=== PATIENT | male | born 1950 | race Caucasian/White ===

== ENCOUNTER 2018-06-25 11:22 | Outpatient (CLI) | payer OTHER, SELFPAY ==
[2018-06-25 12:39] LABS: COMMENT (LAB VIEW ONLY) 15.97 mg/dL; Microalb ug/mg Crea 80.8 ug/mg Cr
[2018-06-25 12:45] LABS: ALT 26 U/L (12-78); AST 19 U/L (15-37); Albumin 3.7 g/dL (3.4-5.0); Alkaline Phosphatase 90 U/L (46-116); Anion Gap 7.8 mmol/L (3-11); BUN 23 mg/dL (7-18); Bilirubin, Total 0.5 mg/dL (0.2-1.0); CO2 30.2 mmol/L (21.0-32.0); CREATININE 1.01 mg/dL (0.70-1.30); Calcium 9.3 mg/dL (8.5-10.1); Chloride 103 mmol/L (98-107); Cholesterol 122 mg/dL (50-200); Glucose 115 mg/dL (70-100); HDL Cholesterol 27 mg/dL (40-60); LDL CHOLESTEROL 60 mg/dL (<100); Sodium 141 mmol/L (136-145); Total Protein 7.2 g/dL (6.4-8.2); Triglyceride 167 mg/dL (30-150)
== END 2018-06-25 11:42 ==
PROVIDERS: PCP Nurse Practitioner; Visit Provider Nurse Practitioner
DX: I10 Essential (primary) hypertension (principal); E11.9 Type 2 diabetes mellitus without complications; E78.1 Pure hyperglyceridemia
CPT/HCPCS: 36415; 80053; 80061; 83721; 82043; 82570

== ENCOUNTER 2018-12-15 01:28 | Outpatient (CLI) | payer OTHER, SELFPAY ==
--- NOTE | 2018-12-15 07:00 | DI.US_ITS ---
SYMPTOM/DIAGNOSIS: SCREENING FOR AAA Z13.6, SMOKER F17.200 ABDOMINAL ULTRASOUND, LIMITED : 12/15 Limited ultrasound was performed for abdominal aortic aneurysm screening. There is an abdominal aortic aneurysm which originates just below the level of the left renal artery and just above the level of the right renal artery. This measures up to about 8.6 cm in maximal diameter in AP projection and 9.0 cm in diameter on transverse dimension. There is a 28 mm right common iliac artery aneurysm and a 25 mm left common iliac artery aneurysm. No evidence of leaking aneurysm or pseudo aneurysm. CONCLUSION: 9 cm distal abdominal aortic aneurysm as described above, right and left common iliac artery aneurysms 28 mm and 25 mm respectively.
== END 2018-12-15 01:48 ==
PROVIDERS: PCP Nurse Practitioner; Visit Provider Nurse Practitioner
DX: F17.200 Nicotine dependence, unspecified, uncomplicated (principal); Z13.6 Encounter for screening for cardiovascular disorders; I71.4 Abdominal aortic aneurysm, without rupture; I72.3 Aneurysm of iliac artery
CPT/HCPCS: 76706

== ENCOUNTER 2019-05-03 09:41 | Outpatient (CLI) | payer OTHER, SELFPAY ==
[2019-05-03 12:07] LABS: ALT 28 U/L (16-63); AST 21 U/L (15-37); Albumin 4.1 g/dL (3.4-5.0); Alkaline Phosphatase 85 U/L (46-116); Anion Gap 11.1 mmol/L (3-11); BUN 20 mg/dL (7-18); Bilirubin, Total 0.4 mg/dL (0.2-1.0); CO2 27.9 mmol/L (21.0-32.0); CREATININE 1.04 mg/dL (0.70-1.30); Calcium 9.3 mg/dL (8.5-10.1); Calculated LDL 74 mg/dL; Chloride 102 mmol/L (98-107); Cholesterol 140 mg/dL (<200); Glucose 120 mg/dL (74-106); HDL Cholesterol 26 mg/dL (40-60); Potassium 4.2 mmol/L (3.5-5.1); Sodium 141 mmol/L (136-145); Total Protein 7.5 g/dL (6.4-8.2); Triglyceride 203 mg/dL (<150)
== END 2019-05-03 10:01 ==
PROVIDERS: PCP Nurse Practitioner; Visit Provider Nurse Practitioner
DX: I10 Essential (primary) hypertension (principal); E78.5 Hyperlipidemia, unspecified; Z98.890 Other specified postprocedural states
CPT/HCPCS: 36415; 80053; 80061

== ENCOUNTER 2020-05-26 03:39 | Outpatient (CLI) | payer OTHER, SELFPAY ==
[2020-05-26 09:25] LABS: Hemoglobin A1C 5.6 % (<5.7)
[2020-05-26 09:56] LABS: ALT 28 U/L (16-63); AST 33 U/L (15-37); Albumin 3.7 g/dL (3.4-5.0); Alkaline Phosphatase 119 U/L (46-116); Anion Gap 7.4 mmol/L (3-11); BUN 24 mg/dL (7-18); Bilirubin, Total 0.6 mg/dL (0.2-1.0); CO2 27.6 mmol/L (21.0-32.0); CREATININE 1.25 mg/dL (0.70-1.30); Calcium 8.4 mg/dL (8.5-10.1); Calculated LDL 38 mg/dL (<100); Chloride 104 mmol/L (98-107); Cholesterol 87 mg/dL (<200); Estimated GFR 57.61 (mL/min/1.73m2); Glucose 115 mg/dL (74-106); HDL Cholesterol 12 mg/dL (40-60); Potassium 4.4 mmol/L (3.5-5.1); Sodium 139 mmol/L (136-145); Total Protein 6.9 g/dL (6.4-8.2); Triglyceride 185 mg/dL (<150)
== END 2020-05-26 03:59 ==
PROVIDERS: PCP Nurse Practitioner; Visit Provider Nurse Practitioner
DX: E78.5 Hyperlipidemia, unspecified (principal); I10 Essential (primary) hypertension; R73.03 Prediabetes
CPT/HCPCS: 36415; 80053; 80061; 83036

== ENCOUNTER 2020-10-09 02:31 | Outpatient (CLI) | payer OTHER, SELFPAY ==
[2020-10-09 12:18] LABS: HCT 49.7 % (40.0-50.0); HGB 15.4 g/dL (13.5-17.5); MCH 26.7 pg (27.0-33.0); MCV 86.1 fL (80-95); Nucleated RBC 4 %; RBC 5.77 10^6/uL (4.36-5.78); RDW 22.7 % (11.8-14.1)
[2020-10-09 12:28] LABS: WBC 64.57 10^3/uL (4.4-10.8)
[2020-10-09 12:47] LABS: ALT 38 U/L (16-63); AST 44 U/L (15-37); Albumin 3.4 g/dL (3.4-5.0); Alkaline Phosphatase 275 U/L (46-116); Anion Gap 12.1 mmol/L (3-11); BUN 21 mg/dL (7-18); CO2 25.9 mmol/L (21.0-32.0); CREATININE 1.1 mg/dL (0.70-1.30); Calcium 8.7 mg/dL (8.5-10.1); Chloride 105 mmol/L (98-107); Glucose 107 mg/dL (74-106); Potassium 3.7 mmol/L (3.5-5.1); Sodium 143 mmol/L (136-145); Total Protein 7.1 g/dL (6.4-8.2)
[2020-10-09 14:14] LABS: Absolute Lymphocyte Count 2.58 10^3/uL (1.2-3.4); Absolute Monocyte Count 4.52 10^3/uL (0.1-0.8); Absolute Neutrophil Count 37.45 10^3/uL (1.2-6.7); Bands % 8
[2020-10-09 14:15] LABS: Absolute Basophil Count 0.65 10^3/uL (0.0-0.2); Absolute Eosinophil Count 3.23 10^3/uL (0.0-0.7); Blastocytes % 1; Diff Comment Manual Differential; Metamyelocytes % 15; Myelocytes % 8; Promyelocytes % 1
[2020-10-09 14:16] LABS: Anisocytosis 2+; Platelet Count 196 10^3/uL (130-400)
[2020-10-09 16:01] LABS: Other Cells % 1
[2020-10-23 16:34] LABS: Specimen Type Peripheral blood
== END 2020-10-09 02:32 | disposition home or self-care (01) ==
LOC: LBO 02:31
PROVIDERS: PCP Nurse Practitioner; Visit Provider Internal Medicine Hematology & Oncology
DX: D72.9 Disorder of white blood cells, unspecified (principal)
CPT/HCPCS: 36415; 80053; 81206; 85025

== ENCOUNTER 2020-10-18 01:43 | Outpatient (CLI) | payer OTHER, SELFPAY ==
--- NOTE | 2020-10-18 | DI.CT_ITS ---
Exam(s) CT CHEST/ABD/PEL W EXAM: CT CHEST/ABD/PEL W CLINICAL HISTORY: NEUTROPHILIA,D72.9,STAGING EXAM. TECHNIQUE: Imaging Protocol: Axial computed tomography images with coronal and sagittal reformatted images were created and reviewed CONTRAST MATERIAL: Intravenous: Omnipaque 350 Contrast volume:100 ml Oral: None COMPARISON: US US AAA screening from 12/15/2018 FINDINGS: CHEST: LUNGS: Mild increased interstitial markings both lung bases. No confluent pulmonary infiltrates nor pleural effusions. No ominous pulmonary nodules. No significant focal findings evident in the trach ea and mainstem bronchi.. MEDIASTINUM: There is no hilar nor mediastinal adenopathy. Visualized thyroid unremarkable. CARDIAC: Heart size is normal. There is no pericardial effusion. Coronary artery calcification in t he LAD is noted.Caliber of the thoracic aorta is within normal limits. OSSEOUS: No significant osseous lesions.. ABDOMEN: LIVER: Liver is enlarged. There are no obvious focal hepatic lesions. GALLBLADDER/BILIARY: No obvious gallbladder pathology. CBD is not dilated. PANCREAS: No evidence of pancreatic mass nor dilatation of the pancreatic duct. SPLEEN: The spleen is grossly enlarged. Measures 22.5 cm AP by 13.5 cm wide by 27 cm craniocaudal. There is a subcapsular area of hypodensity in the spleen which may represent infarct or sequela of valdez bcapsular hemorrhage. There is also small amount of perisplenic ascites. ADRENALS: Right adrenal gland unremarkable. Slight thickening of the left adrenal gland noted. KIDNEYS: There is an exophytic cyst off the lateral cortex of the left kidney measuring 3 x 2.5 cm. Perinephric streaking is seen bilaterally. There is a cyst in the right kidney measuring 1.5 x 1.5 c entimetres in lower pole. No solid renal masses evident. ABDOMINAL AORTA: There has been aortic surgery. For aneurysm. LYMPH NODES: There is no retroperitoneal nor paraaortic adenopathy. ABDOMINAL WALL: No evidence of significant anterior abdominal wall hernia. GI: There is no evidence of bowel obstruction. PELVIS: LYMPH NODES: There is no intrapelvic nor inguinal adenopathy. GI: No evidence of appendicitis.No evidence of sigmoid diverticulitis. URINARY BLADDER: No calculi nor masses evident REPRODUCTIVE: Prostate not enlarged. OSSEOUS: No significant osseous lesions. Bilateral pars defects at L5 noted. Mild anterolisthesis L5 upon S1 approximately 2 millimeters. IMPRESSION: 1. Hepatosplenomegaly. Spleen is very large. Measurements as above. In addition, there is subcapsu lar fluid collection in the spleen as well as a small amount of perisplenic ascites. There are multi ple collaterals with probable portal venous hypertension here. 2. Evidence of prior abdominal aortic aneurysm surgery. 3. Benign renal cysts bilaterally. 4. No lytic osseous lesions identified RADIATION DOSE DELIVERED: 1,767.16mGy.cm Total DLP DATA REPOSITORY: All CT scans at this facility are submitted to the National Radiology Data Registry (NRDR) Dose Index Registry (DIR) with the [employer] (ACR). RADIATION OPTIMIZATION: All CT scans at this facility use at least one of these dose optimization te chniques: automated exposure control; mA and/or kV adjustment per patient size (includes targeted exa ms where dose is matched to clinical indication); or iterative reconstruction.
[2020-10-18] MEDS: Normal Saline - Diluent 50 ML VIAL IV (09:33)
[2020-10-18] MEDS: Omnipaque 350 MG/ML 100 ML BTL IV (09:33)
[2020-10-18] MEDS: Normal Saline Flush 10 ML SYR IVP (09:34)
== END 2020-10-18 02:03 ==
PROVIDERS: PCP Nurse Practitioner; Visit Provider Internal Medicine Hematology & Oncology
DX: D72.89 Other specified disorders of white blood cells (principal); R16.2 Hepatomegaly with splenomegaly, not elsewhere classified; N28.1 Cyst of kidney, acquired; R18.8 Other ascites
CPT/HCPCS: 74177; 71260; J3490

== ENCOUNTER 2020-11-30 03:54 | Outpatient (CLI) | payer OTHER, SELFPAY ==
[2020-11-30 10:08] LABS: Abs Immature Grans 13.97 10^3/uL (0.0-0.06); HCT 42.9 % (40.0-50.0); HGB 13.2 g/dL (13.5-17.5); MCH 26.1 pg (27.0-33.0); MCHC 30.8 % (32.0-36.0); MPV 11.5 fL (8.0-11.0); Nucleated RBC 1 %; Platelet Count 353 10^3/uL (130-400); RBC 5.05 10^6/uL (4.36-5.78); RDW 23.6 % (11.8-14.1); RDW-SD 69.8 fL
[2020-11-30 10:17] LABS: ALT 30 U/L (16-63); AST 41 U/L (15-37); Albumin 2.6 g/dL (3.4-5.0); Alkaline Phosphatase 432 U/L (46-116); Anion Gap 10.8 mmol/L (3-11); BUN 29 mg/dL (7-18); Bilirubin, Total 0.8 mg/dL (0.2-1.0); CO2 25.2 mmol/L (21.0-32.0); CREATININE 1.7 mg/dL (0.70-1.30); Calcium 8.4 mg/dL (8.5-10.1); Chloride 107 mmol/L (98-107); Estimated GFR 40.28 (mL/min/1.73m2); Glucose 89 mg/dL (74-106); Potassium 4.1 mmol/L (3.5-5.1); Sodium 143 mmol/L (136-145); Total Protein 5.8 g/dL (6.4-8.2)
[2020-11-30 10:31] LABS: Absolute Lymphocyte Count 2.06 10^3/uL (1.2-3.4); Absolute Neutrophil Count 49.49 10^3/uL (1.2-6.7); Bands % 11
[2020-11-30 10:32] LABS: Absolute Eosinophil Count 4.12 10^3/uL (0.0-0.7); Absolute Monocyte Count 2.75 10^3/uL (0.1-0.8)
[2020-11-30 10:33] LABS: WBC 68.73 10^3/uL (4.4-10.8)
[2020-11-30 10:34] LABS: Diff Comment Manual Differential; Metamyelocytes % 9; Myelocytes % 4; Other Cells % 1; Promyelocytes % 1
[2020-11-30 10:35] LABS: Anisocytosis 2+; Polychromasia Present
[2020-12-06 12:32] LABS: Indication for Study CML
[2020-12-06 12:33] LABS: Specimen Type Peripheral blood
[2020-12-06 12:34] LABS: BCR-ABL1 Interpretation See Comments; BCR-ABL1 p210 FusionTranscript See Comments; Limitations and Disclaimers See Comments
== END 2020-11-30 03:55 | disposition home or self-care (01) ==
LOC: LBO 03:54
PROVIDERS: PCP Nurse Practitioner; Visit Provider Internal Medicine Hematology & Oncology
DX: D47.1 Chronic myeloproliferative disease (principal); D72.9 Disorder of white blood cells, unspecified
CPT/HCPCS: 36415; 80053; 81206; 84550; 85025

== ENCOUNTER 2020-12-01 08:19 | Outpatient (CLI) | payer OTHER, SELFPAY ==
--- OUTSIDE RECORDS SUMMARY | 2020-12-01 08:23 | XMS_ITS ---
:1950 Author Care Team Providers Name Role Phone DR. MATA BATES Primary Care Provider [phone] DR. MATA BATES Referring Provider [phone] Allergies Code Code Name Reaction Severity Status Onset System 5487 RxNorm Hydrochlorothiazide Angioedema ? Active ? 66602 RxNorm Lisinopril Angioedema ? Active ? Medications Name Status Start Date Stop Date ? ? acetaminophen 500 mg tablet Active ? Not available Take 2 tablets every 6 hours by oral route as needed. Adult Aspirin Regimen 81 mg tablet,delayed release Active ? Not available Take 1 tablet every day by oral route. amlodipine 5 mg tablet Active ? Not avail able atenolol 100 mg tablet Active ? Not avail able bumetanide 1 mg tablet Active ? Not avail able capsaicin 0.1 % topical cream Completed ? cephalexin 500 mg capsule Completed ? 2020 TAKE ONE CAPSULE BY MOUTH FOUR TIMES A DAY FOR 10 DAYS clindamycin HCl 300 mg capsule Active ? N ot available TAKE 1 CAPSULE BY MOUTH EVERY 6 HOURS WITH MEALS furosemide 20 mg tablet Active ? Not avai lable indomethacin 25 mg capsule Active ? Not a vailable Take 2 capsules 3 times a day by oral route. irbesartan 300 mg tablet Active ? Not khoa ilable multivitamin Active ? Not available sildenafil 50 mg tablet Active ? Not avai lable TAKE 1 TABLET (50 MG) BY ORAL ROUTE ONC E DAILY NEEDED APPROXIMATELY 1 HOUR BEFORE SEXUAL ACTIVITY simvastatin 20 mg tablet Completed ? 021 simvastatin 40 mg tablet Active ? Not khoa ilable triamcinolone acetonide 0.025 % topical cream Completed ? 09/05/2020 APPLY A THIN LAYER TO THE AFFECTED AREA(S) BY TOPICAL ROUTE 2 T IMES PER DAY Problems Name Status Onset Date Source ? Hyperlipidemia Active 07/24/2020 ? Erectile Dysfunction Active 07/24/2020 ? Tobacco User Active 07/24/2020 ? Obstructive Sleep Apnea Syndrome Active 07/24/2020 ? Cerebellar Ataxia Active 07/24/2020 ? Peripheral Nerve Disease Active 07/24/2020 ? Hypertensive Disorder Active 07/24/2020 ? Abdominal Aortic Aneurysm Active 07/24/2020 ? Hallux Valgus Active 07/24/2020 ? Bunion Active 07/24/2020 ? Ulcer of Toe Active 08/29/2020 ? 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 Acute Osteomyelitis of Foot Active 08/29/2020 ? Procedures Date Name Performed by ? 06/09/2016 Colonoscopy Information not avai lable 06/09/2014 Knee Surgery Information not avai lable ? Repair of Aneurysm of Abdominal Aorta In formation not available Notes: 01/201908/29/2020 XR, Foot, 3 or More View [facility] [address] [place] [id number] (Work Place) 08/29/2020 XR, Foot, 3 or More View [facility] [address] [place] [id number] (Work Place) Results Lab Results Date Name Specimen Result Interpretation Description Value Range Status Address ? 2020 SARS CoV 2 RNA ? Upper nasopharyngeal ? Final [facility] (COVID-19), [facility] QL, hr representative-PCR, Source (Lab ): Respiratory [facility] ? ? Normal Sars Cov-2 not detected not Final [facility] RNA detect Hospital (Covid-19) ed (Lab): [address] [place] [address] 08/29/2020 Erythrocyte WB Normal Esr 8.00 mm/HR 0.00-1 Aure shalonda [facility] Sedimentation 5.00 Hos pital Rate by mm/HR (Lab): [address] [place] [address] 08/29/2020 CBC W/ Auto WB CRITIC Wbc 61.2 10^3/mm^3 4.8-10 Final [place] Diff [place] .8 Hospital HIGH 10^3/m (Lab): 90 m^3 [facility] ? ? WB Normal Rbc 5.40 10^6/mm^3 4.20-5 Final Co ttage .90 Hospital 10^6/m (Lab): 90 m^3 [facility] ? ? WB Normal Hgb 14.5 g/dL 13.5-1 Final [facility] 7.5 Hospital g/dL (Lab): [address] [place] [address] ? ? WB Normal Hct 46 % 40-50 Final [facility] % Hospital (Lab): [address] [place] [address] ? ? WB Normal Mcv 84.8 fL 80.0-9 Final [facility] 7.0 fL Hospital (Lab): [address] [place] [address] ? ? WB Low Mch 26.9 pg 27.5-3 Final [facility] 2.1 pg Hospital (Lab): [address] [place] [address] ? ? WB Low Mchc 32 g/dL 33-36 Final [facility] g/dL Hospital (Lab): [address] [place] [address] ? ? WB High Rdw 23.3 % 11.6-1 Final [facility] 4.8 % Hospital (Lab): [address] [place] [address] ? ? WB Normal Platelets 239 10^3/mm^3 150-40 Final [facility] 0 Hospital 10^3/m (Lab): 90 m^3 [facility] 08/29/2020 CMP, Serum or P Normal Na 140 mEq/L 136-14 Fin al [facility] Plasma 5 Hospital mEq/L (Lab): [address] [place] [address] ? ? P Normal K 4.4 mEq/L 3.5-5. Final [place] 1 Hospital mEq/L (Lab): [address] [place] [address] ? ? P Normal Cl 102 mEq/L 98-107 Final [facility] mEq/L Hospital (Lab): [address] [place] [address] ? ? P Normal Co2 25 mEq/L 21-31 Final [facility] mEq/L Hospital (Lab): [address] [place] [address] ? ? P ? Agap 18.2 ? Final [place] calculation Hospi tobi (Lab): [address] [place] [address] ? ? P High Glu 146 mg/dL 70-100 Final [facility] mg/dL Hospital (Lab): [address] [place] [address] ? ? P High Bun 23 mg/dL 7-18 Final [facility] mg/dL Hospital (Lab): [address] [place] [address] ? ? P Normal Creat 1.25 mg/dL 0.70-1 Final [facility] .30 Hospital mg/dL (Lab): [address] [place] [address] ? ? P ? Bn/cr 18.3 ratio ? Final [facility] Hospital (Lab): [address] [place] [address] ? ? P Low Ca 8.3 mg/dL 8.5-10 Final [facility] .1 Hospital mg/dL (Lab): [address] [place] [address] ? ? P High Alkp 192 U/L 38-126 Final [facility] U/L Hospital (Lab): [address] [place] [address] ? ? P Normal Alt 36 U/L 16-63 Final [facility] U/L Hospital (Lab): [address] [place] [address] ? ? P High Ast 43 U/L 15-37 Final [facility] U/L Hospital (Lab): [address] [place] [address] ? ? P Normal Tbil 0.8 mg/dL <=1.2 Final [facility] mg/dL Hospital (Lab): [address] [place] [address] ? ? P Normal Tp 6.7 g/dL 6.4-8. Final [facility] 2 g/dL Hospital (Lab): [address] [place] [address] ? ? P Normal Alb 3.6 g/dL 3.4-5. Final [facility] 0 g/dL Hospital (Lab): [address] [place] [address] ? ? P ? Glob 3.08 mg/dL ? Final [facility] (Lab): [address] [place] [address] ? ? P ? A/g 1.2 calc ? Final [facility] (Lab): [address] [place] [address] ? ? P ? Egfraa 69.83 ? Final [facility] (Lab): [address] [place] [address] ? ? P ? Egfrnaa 57.61 ? Final [facility] (Lab): [address] [place] [address] 08/29/2020 Pathology ? Source see separate ? Arnulfo Marshall Review, Smear report Hos pital (Lab): [address] [place] [address] ? ? ? Dx1 ssr ? Final [facility] (Lab): [address] [place] [address] ? ? ? Dx2 ssr ? Final [facility] (Lab): [address] [place] [address] ? ? ? Dx3 ssr ? Final [facility] (Lab): [address] [facility] ? ? ? Disc ssr ? Final [facility] (Lab): 90 [facility] ? ? ? Add ssr ? Final [facility] (Lab): 90 [facility] ? ? ? Info ssr ? Final [facility] (Lab): [address] [facility] Past Encounters 11/28/2020 Hammer Toe; Ulcer of Toe; Hallux Valgus Tk Edwards, DPM: [address] [place] [address], Ph. 09/28/2020 Amputated Toe of Right Foot; Hallux Valg us Tk Edwards, DPM: [address] [place] [address], Ph. 09/21/2020 Amputated Toe of Right Foot Tk Edwards DPM: [address] [place] [address], Ph. 09/14/2020 Acute Osteomyelitis of Foot Tk Edwards, DPM: [address] [place] [address], Ph. 2020 Acute Osteomyelitis of Foot; Hammer Toe; Ulcer of Toe Tk Edwards, DPM: [address] [place] [address], Ph. 08/29/2020 Acute Osteomyelitis of Foot; Ulcer of To e; Hammer Toe Tk Edwards, DPM: [address] [place] [address], Ph. 08/07/2020 Ulcer of Toe; Acquired Right Hallux Valg us; Hammer Toe Tk Edwards, DPM: [address] [place] [address], Ph. Social History None recorded. Vaccine List Vaccine Type COVID-19, mRNA, LNP-S, PF, 100 mcg/0.5 m L dose 08/14/2020 SARS-COV-2 (COVID-19) vaccine, UNSPECIFI ED 09/14/2020 Plan of Care Reminders Provider Appointments None ? ? recorded. Lab None ? ? recorded. Referral None ? ? recorded. Procedures None ? ? recorded. Surgeries None ? ? recorded. Imaging None ? ? recorded. Vitals 11/28/2020 08:30AM Post Op Height Weight BMI Blood Pressure 182.88 cm 111.13 kg 33.2 kg/m2 09/28/2020 08:45AM Post Op Height 182.88 cm 09/21/2020 09:45AM Post Op Height Weight BMI Blood Pressure 182.88 cm 111.13 kg 33.2 kg/m2 126/68 mm[Hg] 09/14/2020 10:00AM Post Op Height 182.88 cm 2020 01:30PM FOLLOW UP Height Weight BMI Blood Pressure 182.88 cm 111.13 kg 33.2 kg/m2 08/29/2020 02:00PM FOLLOW UP Height Weight BMI Blood Pressure 182.88 cm 111.13 kg 33.2 kg/m2 08/07/2020 02:30PM NEW PATIENT Height Weight BMI Blood Pressure 182.88 cm 111.13 kg 33.2 kg/m2 132/70 mm[Hg]
--- OUTSIDE RECORDS SUMMARY | 2020-12-01 08:23 | XMS_ITS | Encounter Summary ---
:1950 Author Care Team Providers Name Role Phone Dr. Gisele Perkins Primary Care Provider [phone] Dr. Gisele Perkins Referring Provider [phone] Reason for Visit 3rd post op amputation right great toe Assessment and Plan 1. Hammer toe 2. Ulcer of toe Plan: PolyMem bandages were ap plied to the second toe of the left foot and recommendations were given for daily was tete and application of PolyMem bandages which she can obtain online. I have kiersten carson recommended he return to his postoperative shoe use on his left foot and follow-up in clinic in 1 week. 3. Hallux valgus Discussion Note: None recorded.Patient educational handouts: No information available. Plan of Care Reminders Provider Appointments Ulcer Care 12/05/2020 Raj Edwards, 15 9:45AM DPM Lab None ? ? recorded. Referral None ? ? recorded. Procedures None ? ? recorded. Surgeries None ? ? recorded. Imaging None ? ? recorded. Medications Name Start Date ? ? acetaminophen 500 mg tablet ? Take 2 tablets every 6 hours by oral route as needed. Adult Aspirin Regimen 81 mg tablet,delayed release ? Take 1 tablet every day by oral route. amlodipine 5 mg tablet ? Take 1 tablet every day by oral route. atenolol 100 mg tablet ? Take 2 tablets every day by oral route. bumetanide 1 mg tablet ? Take 1 tablet every day by oral route. clindamycin HCl 300 mg capsule ? TAKE 1 CAPSULE BY MOUTH EVERY 6 HOURS WITH MEALS furosemide 20 mg tablet ? indomethacin 25 mg capsule ? Take 2 capsules 3 times a day by oral route. irbesartan 300 mg tablet ? Take 1 tablet every day by oral route. multivitamin ? sildenafil 50 mg tablet ? TAKE 1 TABLET (50 MG) BY ORAL ROUTE ONC E DAILY NEEDED APPROXIMATELY 1 HOUR BEFORE SEXUAL ACTIVITY simvastatin 40 mg tablet ? Take 1 tablet every day by oral route. Medications Administered None recorded. Vitals Height Weight BMI 6 ft 245 lbs 33.2 kg/m2 Results Lab Results None recorded. Allergies Code Code System Name Reaction Severity Onset 5487 RxNorm Hydrochlorothiazide Angioedema ? ? 23489 RxNorm Lisinopril Angioedema ? ? Problems Name Status Onset Date Source ? [...] Abdominal Aorta In formation not available Notes: 01/2019 Vaccine List Vaccine Type COVID-19, mRNA, LNP-S, PF, 100 mcg/0.5 m L dose 08/14/2020 SARS-COV-2 (COVID-19) vaccine, UNSPECIFI ED 09/14/2020 Social History Have you travelled outside of [facility] in the past 14 days? Have you received the covid vaccine Y No valerie: Moderna Covid #1 this year? (If so, document vaccination in Vaccine Module in [place]) Have you experienced any of the N following symptoms in the past 48 hours? Fever/Chills, Cough, Shortness of breath or difficulty breathing, fatigue, muscle or body aches, headache, new loss of taste or smell, sore throat, congestion or runny nose, nausea or vomiting and/or diarrhea Are you able to care for yourself? Y Have you had any vaccines in the last Y Notes: scheduled for Moderna month or do you have any vaccines Covid #2 on 09/10/20, Dr Edwards's scheduled? office contacted Illicit Drugs: Begin date: Notes: non e Are you currently waiting on results N of a COVID-19 test? What is your code status? 0 Within the past 14 days, have you N been in close physical contact (6 feet or closer for a cumulative total of 15 minutes) with anyone that is known to have laboratory-confirmed COVID-19? OR Anyone who has any symptoms consistent with COVID-19? Tobacco - Do you use chewing N Notes: no E cigarette, vape use tobacco? Are you isolating or quarantining N because you may have been exposed to a person with COVID-19 or are worried that you may be sick with COVID-19? What was the date of your most recent 09/28/2020 tobacco screening? Do you have an advanced directive? Y Not es: on file at [place], [place] Directive website Tobacco - Do you smoke? N Notes: Former quit 1.5 yrs, 1 ppd x 40 yrs Alcohol - Daily intake: Notes: 12-14 beers a week Tobacco - Are you around people that Y smoke? Functional Status Unknown. Past Encounters 11/28/2020 Hammer Toe; Ulcer of Toe; Hallux Valgus Tk Edwards, DPM: [address] [place] [address], Ph. History of Present Illness Note: Keanu was seen today for an acute visit for concern for left foot and a new ulceration on the second digit. The right foot has healed completely from his surgery with no complications being noted. He has no specific history of injury or trauma to his left foot. Review of Systems ? [Global] Comprehensive ROS Reported By: Patient Constitutional: Constitutional: no fever, no night sweats, no significant weight loss, no exercise int olerance, no fatigue Integumentary: Skin: no abnormal mole, no j aundice, no rashes, no laceration; Chronic ulcer right second t oe Musculoskeletal: Musculoskeletal: ; Longstand ing hallux valgus and hammertoe deformities right and left f oot Neurologic: Neurologic: no loss of consc iousness, no weakness, no numbness, no seizures, no di zziness, no headaches, no tremor, no muscle weakness Hematologic/Lymphatic: Hematologic/Lymphatic no swo llen glands, no bruising, no excessive bleeding Allergic/Immunologic: Allergy/Immunologic: no seas onal allergies Physical Exam ? Notes: Constitutional: Well-groomed , well developed, appears stated age, well nourished, no acute distress , alert and oriented to time, place and person, weight-overweight

Psy chiatric: Mental status-mood and affect normal, behavior normal,cognition an d thought content normal, fund of knowledge is intact, attention span and a bility to concentrate is normal, able to articulate well with normal speech and language

Respiratory: Quiet and easy respiratory effort, brown st-symmetrical expansion, no respiratory distress, no adventitious sounds, no s hortness of breath, respiration rate of numeral 12

Vascular:
Dors mandy pedis pulse-absent due to edema
Posterior tibial pulse-1/4
Venous filling time at the digit levels-1 second
Digita l hair-absent
Skin texture and turgor-normal
Pedal tempe rature-warm
Extremity varicosities-none noted
Edema-+1 pedal homero a
Ischemia-none noted

Lymphatic: no lymphadenopathy of the popli teal nodes

Dermatologic: Grade 3 ulceration medial surface left second d igit proximal interphalangeal joint without evidence of erythema, draina ge, bleeding or penetration to bone. This lesion measures approximately 5 mm in diameter.

Neurologic: Alert and oriented times 3, concentrating abili ty not decreased, symmetrical bulk, strength and tone in the lower extremitie s, coordination is normal.
Sensory examination-distal sensory n europathy in the L4-S1 dermatomes bilaterally
Motor examina tion-intact without deficit
Coordination and tremors-no intentional or re sting tremors are noted, no adventitious movement noted
Muscle fasciculatio ns-no fasciculations noted in the lower extremity muscles
Atrophy-no atroph y noted in the intrinsic muscles of the feet, lower legs or thighs

Musculoskeletal: Able to rise from a chair and get up onto the orthopaedic examination table, hallux valgus deformities with hammertoe deformities 2 thro ugh 5 on the left foot. No acute presentation noted with joint pain, muscl e inflammation or tenosynovitis.

Gait: Normal gait and station, nor mal posture, flatfoot type gait

Assessment: Grade 3 ulceration second di git left foot without evidence of infection

Plan: Daily washing, bandaging with PolyMem bandages and postoperative shoe use
<b r>This clinic note/operative note was created using [employer] voi ce recognition software. The note was reviewed by myself for primary content. There may be multiple small syntactical discrepancies and errors due to the voice recognition limitations of the software-Dr. Edwards.
--- OUTSIDE RECORDS SUMMARY | 2020-12-01 08:23 | XMS_ITS | Encounter Summary ---
:1950 Author Care Team Providers Name Role Phone Dr. Gisele Perkins Primary Care Provider [phone] Dr. Gisele Perkins Referring Provider [phone] Reason for Visit suture removal Assessment and Plan 1. Amputated toe of right foot 2. Hallux valgus Discussion Note: None recorded.Patient educational [...] route. Medications Administered None recorded. Vitals Height 6 ft Results Lab Results None recorded. Allergies Code Code System Name Reaction Severity Onset 5753 RxNorm Hydrochlorothiazide Angioedema ? ? 44817 RxNorm Lisinopril Angioedema ? ? Problems Name [...] 01/201908/29/2020 XR, Foot, 3 [facility] [address] [place] [address] (Work Place) 08/29/2020 [facility], [facility] Rad[facility] [address] [place] [address] (Work Place) Vaccine List Vaccine Type COVID-19, mRNA, LNP-S, PF, 100 mcg/0.5 m L dose 08/14/2020 SARS-COV-2 (COVID-19) vaccine, UNSPECIFI ED 09/14/2020 Social History Have you received the covid vaccine Y No valerie: Moderna Covid #1 this year? (If so, document vaccination in Vaccine Module in [place]) Are you able to care for yourself? Y Are you currently waiting on results N of a COVID-19 test? What is your code status? 0 Tobacco - Do you use chewing N [...] directive? Y Not es: on file at [place], [place] Directive website Tobacco - Do you smoke? N Notes: Former quit 1.5 yrs, 1 ppd x 40 yrs Tobacco - Are you around people that Y smoke? Have you travelled outside of [facility] in the past 14 days? Have you experienced any of the N following symptoms in the past 48 hours? Fever/Chills, Cough, Shortness of breath or difficulty breathing, fatigue, muscle or body aches, headache, new loss of taste or smell, sore throat, congestion or runny nose, nausea or vomiting and/or diarrhea Have you had any vaccines in the last Y Notes: scheduled for a month or do you have any vaccines Covid #2 on 09/10/20, Dr Edwards's scheduled? office contacted Illicit Drugs: Begin date: Notes: non e Within the past 14 days, have you N been in close physical contact (6 feet or closer for a cumulative total of 15 minutes) with anyone that is known to have laboratory-confirmed COVID-19? OR Anyone who has any symptoms consistent with COVID-19? Alcohol - Daily intake: Notes: 12-14 beers a week Functional Status Unknown. Past Encounters 09/28/2020 Amputated Toe of Right Foot; Hallux Valg us Tk Edwards DPM: [address] [place] [phone], Ph. 09/21/2020 Amputated Toe of Right Foot Tk Edwards DPM: [address] [place] [phone], Ph. 09/14/2020 Acute Osteomyelitis of Foot Tk Edwards DPM: [address] [place] [phone], Ph. 2020 Acute Osteomyelitis of Foot; Hammer Toe; Ulcer of Toe Tk Edwards DPM: [address] [place] [phone], Ph. 08/29/2020 Acute Osteomyelitis of Foot; Ulcer of To e; Hammer Toe Tk Edwards DPM: [address] [place] [phone], Ph. History of Present Illness Note: Keanu is seen for postoperative visit for right second digit amputation. He has no complaint of pain or discomfort in the right foot. He has a visit next week scheduled at the [facility] [place] [facility] [place] for a medical work-up. Review of Systems ? [Global] Comprehensive ROS [...] seas onal allergies Physical Exam ? Notes: Surgical dressings are dry a nd intact with minimal drainage noted. There is excellent coaptation of the incision line without evidence of dehiscence, drainage, edema or erythema. There is normal skin texture and turgor at the area of surgery with no evid ence of erythema or cellulitic activity..

Assessm ent: Normal postoperative course without complication

Plan: Miller tures were removed today, there is complete healing of the skin and the patient may return to regular shoe gear. I have dispensed foam spacers for t he right foot amputation site. Follow-up in clinic in 2 months.
--- OUTSIDE RECORDS SUMMARY | 2020-12-01 08:24 | XMS_ITS | Encounter Summary ---
:1950 Author Care Team Providers Name Role Phone Dr. Gisele Perkins Primary Care Provider [phone] Dr. Gisele Perkins Referring Provider [phone] Reason for Visit post op amputation Assessment and Plan 1. Amputated toe of right foot Discussion Note: None recorded.Patient educational handouts: No [...] Administered None recorded. Vitals Height Weight BMI Blood Pressure 6 ft 245 lbs 33.2 kg/m2 126/68 mm[Hg] Results Lab Results None recorded. Allergies Code Code System Name Reaction Severity Onset 3921 RxNorm Hydrochlorothiazide Angioedema ? ? 04826 RxNorm Lisinopril Angioedema ? ? Problems Name [...] [facility], Foot, [facility] [address] [place] [address] (Work Place) 08/29/2020 [facility]R, Foot, [facility] [address] [place] [address] (Work Place) Vaccine List Vaccine Type COVID-19, mRNA, LNP-S, PF, 100 mcg/0.5 m L dose 08/14/2020 SARS-COV-2 (COVID-19) vaccine, UNSPECIFI ED 09/14/2020 Social History Have you received the covid vaccine Y No valerie: Moderna Covid #1 this year? (If so, document vaccination in Vaccine Module in [place]) Are you able to care for yourself? [...] directive? Y Not es: on file at [place], [place] Directive website Tobacco - Do you smoke? N Notes: Former quit 1.5 yrs, 1 ppd x 40 yrs Tobacco - Are you around people that Y smoke? Have you travelled outside of [facility] [employer] [facility] in the past 14 days? Have you [...] a week Functional Status Unknown. Past Encounters 09/21/2020 Amputated Toe of Right Foot Tk Edwards DPM: [address] [place] [phone], Ph. 09/14/2020 Acute Osteomyelitis of Foot Tk Edwards DPM: [address] [place] [phone], Ph. 2020 Acute Osteomyelitis of Foot; Hammer Toe; Ulcer of Toe Tk Edwards DPM: [address] [place] [phone], Ph. 08/29/2020 Acute Osteomyelitis of Foot; Ulcer of To e; Hammer Toe HARLAN MontalvoM: [address] [place] [phone], Ph. History of Present Illness Note: Keanu was seen today for 2 week postoperative visit for a digital amputation on the right foot. All pain is cleared in the foot as of this time. Review of Systems ? [Global] Comprehensive ROS [...] ent: Normal postoperative course without complication

Plan: No dressings are needed on the foot at this time, the patient may bathe and fo llow-up in 1 week for suture removal.
--- OUTSIDE RECORDS SUMMARY | 2020-12-01 08:24 | XMS_ITS | Encounter Summary ---
:1950 Author Care Team Providers Name Role Phone Dr. Gisele Perkins Primary Care Provider [phone] Dr. Gisele Perkins Referring Provider [phone] Reason for Visit f/u ulcer Assessment and Plan 1. Acute osteomyelitis of foot ? amputation, toe at the MTP joint (SURG) 2. Hammer toe 3. Ulcer of toe Plan: Dry sterile dressings we re applied, Keanu will continue dressing the foot until surgery next Friday on a d aily basis. Discussion Note: None recorded.Patient educational handouts: No information available. Plan of Care Reminders Provider Appointments Ulcer Care 12/05/2020 Raj Edwards, 15 9:45AM DPM Lab None ? ? recorded. Referral None ? ? recorded. Procedures None ? ? recorded. [facility] Amputation, Toe at Or the MTP Joint (SURG) Imaging None ? ? recorded. Medications Name [...] Code Code System Name Reaction Severity Onset 5492 RxNorm Hydrochlorothiazide Angioedema ? ? 09621 RxNorm Lisinopril Angioedema ? ? Problems Name [...] 01/201908/29/2020 [facility], Foot[facility] [address] [place] [address] (Work Place) 08/29/2020 XR, Foot, 3 or [facility] - Radiology [address] [place] [address] (Work Place) Vaccine List Vaccine Type COVID-19, mRNA, LNP-S, PF, 100 mcg/0.5 m L dose 08/14/2020 SARS-COV-2 (COVID-19) vaccine, UNSPECIFI ED 09/14/2020 Social History Have you travelled outside of [facility] in the past 14 days? Have you received the covid vaccine Y No valerie: Moderna Covid #1 this year? (If so, document vaccination in Vaccine Module in [place]) Have you experienced any of the N [...] directive? Y Not es: on file at [place], [place] Directive website Tobacco - Do you smoke? N Notes: Former quit 1.5 yrs, 1 ppd x 40 yrs Alcohol - Daily intake: Notes: 12-14 beers a week Tobacco - Are you around people that Y smoke? Functional Status Unknown. Past Encounters 2020 Acute Osteomyelitis of Foot; Hammer Toe; Ulcer of Toe Tk Edwards DPM: [address] [place] [phone], Ph. 08/29/2020 Acute Osteomyelitis of Foot; Ulcer of To e; Hammer Toe Tk Edwards DPM: [address] [place] [phone], Ph. 08/07/2020 Ulcer of Toe; Acquired Right Hallux Valg us; Hammer Toe Tk Edwards DPM: [address] [place] [phone], Ph. History of Present Illness Note: Keanu is a 69-year-old male patient who is seen today for further evaluation for an ulcerative lesion on the right second digit with osteomyelitis. Preoperative blood work obtained 2 days ago demonstrated a significant elevation of her white blood cell count to 67,000. Pathology review on read from the pathologist demonstrated no evidence of inflammatory markers within cells. Review of Systems ? [Global] Comprehensive ROS [...] onal allergies Physical Exam ? Notes: Constitutional: well develop ed, appears stated age, well nourished, no acute distress, alert and oriented to time, place and [...] s hortness of breath, respiration rate of 14

Vascular:
D orsalis pedis and posterior tibial pulses are full and palpable bilaterally. Th e feet are warm to touch with 1-2 second vascular filling time at the digit le vels. Digital hair is present bilaterally. No venous varicosities are note d on the lower legs, ankles or feet. No ischemia is noted within the legs or pedal structures.

Dermatologic: Grade 4 ulceration on the medial manish face of the right second digit with exposure of the proximal phalanx head an d interphalangeal joint and the wound. There is no evidence of purulence, eryth harshal, bleeding within this 1 cm wound. There appears to be no dorsal or p lantar foot infection on examination.

Neuro logic: Alert and oriented times 3, concentrating ability not decreased, symme trical bulk, strength and tone in the lower extremities, coordination is normal.
Sensory examination-intact without deficit
Motor examination -grossly intact without deficit
Coordination and tremors-no intentional o r resting tremors are noted, no adventitious movement noted
Muscle fas ciculations-no fasciculations noted in the lower extremity muscles
Atrophy -no atrophy noted in the intrinsic muscles of the feet, lower legs or thighs < br>
Musculoskeletal: Hammertoe deformity right second digit compounded by h allux valgus deformity. Acute osteomyelitis second digit with exposure of bone in the medial surface of the proximal interphalangeal joint of the second digit. This is a grade 4 ulceration. The patient has mild discomfort with the foot however has neuropathy affecting both lower extremities.
< br>Gait: Normal gait and station, normal posture, no antalgia noted

Ass essment: Osteomyelitis right second toe with exposure of the proximal int erphalangeal joint into the ulceration at this time.

Plan: I had a d iscussion with the patient today regarding options of care for this specific de formity. Conservative care was discussed and the patient would like to procee d with interventional care for correction. This is amputation of the second dig it on an outpatient basis with primary closure at [facility] next morning. I have discussed the possibility of infection, delayed healing o f the incision or deeper tissues, chronic swelling, numbness at the in cision site and weakness in the peripheral areas. After all pertinent question s were answered that were posed by the patient a surgical consent form was si gned. Postoperative pain relief should be achieved adequately with Tylenol and ibuprofen. The patient will have a long-acting peripheral nerve blocks in t he foot immediately post surgery. A Covid test was performed today in the offic e and results should be back by next Friday. Recommendations for quaranti ct in the house until surgery were reviewed with the patient.

Keanu will be seen on Friday for a preoperative medical clearance through his primar care physician's office. Additionally he will be seen for evaluation for his elevated white blood cell count and evaluation for hematology referral will be made through his primary care physician's office.
--- OUTSIDE RECORDS SUMMARY | 2020-12-01 08:24 | XMS_ITS | Encounter Summary ---
:1950 Author Care Team Providers Name Role Phone Dr. Gisele Perkins Primary Care Provider [phone] Dr. Gisele Perkins Referring Provider [phone] Reason for Visit Post Op Assessment and Plan 1. Acute osteomyelitis of foot Discussion Note: None recorded.Patient educational handouts: [...] Code Code System Name Reaction Severity Onset 1775 RxNorm Hydrochlorothiazide Angioedema ? ? 92808 RxNorm Lisinopril Angioedema ? ? Problems Name [...] [facility] [address] [place] [address] (Work Place) 08/29/2020 XR, Foot, [facility] [address] [place], [place] [id number] (Work Place) Vaccine List Vaccine Type COVID-19, mRNA, LNP-S, PF, 100 mcg/0.5 m L dose 08/14/2020 SARS-COV-2 (COVID-19) vaccine, UNSPECIFI ED 09/14/2020 Social History Have you travelled outside of [facility] in the past 14 days? Have you received the covid vaccine Y No valerie: Moderna Covid #1 this year? (If so, document vaccination in Vaccine Module in [place]) Have you experienced any of the N [...] directive? Y Not es: on file at [place], [place] Directive website Tobacco - Do you smoke? N Notes: Former quit 1.5 yrs, 1 ppd x 40 yrs Alcohol - Daily intake: Notes: 12-14 beers a week Tobacco - Are you around people that Y smoke? Functional Status Unknown. Past Encounters 09/14/2020 Acute Osteomyelitis of Foot Tk Edwards DPM: [address] [place] [phone], Ph. 2020 Acute Osteomyelitis of Foot; Hammer Toe; Ulcer of Toe HARLAN MontalvoM: [address] [place] [phone], Ph. 08/29/2020 Acute Osteomyelitis of Foot; Ulcer of To e; Hammer Toe Tk Edwards, DPM: [address] [place] [phone], Ph. History of Present Illness Note: Keanu was seen today for 1 week postoperative visit for a digital amputation on the right foot. He has been walking on the foot the past 2 days and states that he has mild discomfort in the foot however he has had no significant pain since his surgery. Review of Systems ? [Global] Comprehensive ROS [...] ent: Normal postoperative course without complication

Plan: Xe roform gauze, 4 x 4 gauze, Kerlix and Coban were placed around the foot and a nkle for a protective postsurgical dressing. Postoperative shoe was place d over this. Recommendations were given to minimize all nonessential wa lking and elevate the foot during the day to maximize healing. I have giv en Keanu the name of Dr. Lauri Reddy who is a television camera operator oncologist from [facility] who runs the infusion center at [facility]. He may be able to fit him in quicker for his hematology consult and going directly t o [facility]. He will forward Dr. Reddy's name and office location at [facility] to his primary care physician.
[2020-12-01 09:55] LABS: Abs Immature Grans 14.18 10^3/uL (0.0-0.06); HCT 42.4 % (40.0-50.0); HGB 13.2 g/dL (13.5-17.5); MCHC 31.1 % (32.0-36.0); MCV 83.6 fL (80-95); MPV 10.9 fL (8.0-11.0); RBC 5.07 10^6/uL (4.36-5.78); RDW 23.4 % (11.8-14.1); RDW-SD 69.5 fL
[2020-12-01 10:09] LABS: ALT 27 U/L (16-63); AST 36 U/L (15-37); Albumin 2.5 g/dL (3.4-5.0); Alkaline Phosphatase 416 U/L (46-116); Anion Gap 9.4 mmol/L (3-11); BUN 36 mg/dL (7-18); Bilirubin, Total 0.9 mg/dL (0.2-1.0); CO2 25.6 mmol/L (21.0-32.0); CREATININE 2.4 mg/dL (0.70-1.30); Calcium 8.2 mg/dL (8.5-10.1); Chloride 106 mmol/L (98-107); Estimated GFR 27.06 (mL/min/1.73m2); Glucose 85 mg/dL (74-106); LDH 407 U/L (85-227); Potassium 4.2 mmol/L (3.5-5.1); Sodium 141 mmol/L (136-145); Uric Acid 11.9 mg/dL (3.5-7.2)
[2020-12-01 10:30] LABS: Platelet Count 342 10^3/uL (130-400)
[2020-12-01 10:31] LABS: Absolute Eosinophil Count 4.84 10^3/uL (0.0-0.7); Absolute Lymphocyte Count 5.53 10^3/uL (1.2-3.4); Absolute Monocyte Count 4.15 10^3/uL (0.1-0.8); Absolute Neutrophil Count 49.79 10^3/uL (1.2-6.7); Atypical Lymphocytes % 7; Bands % 9; Metamyelocytes % 5; Myelocytes % 2; Nucleated RBC 1 %
[2020-12-01 10:32] LABS: Anisocytosis 1+; Diff Comment Manual Differential; Hypochromasia 1+; Macrocytosis 1+; Polychromasia Present
[2020-12-01 10:35] LABS: WBC 69.15 10^3/uL (4.4-10.8)
== END 2020-12-01 08:20 | disposition home or self-care (01) ==
LOC: LBO 08:21
PROVIDERS: PCP Nurse Practitioner; Visit Provider Internal Medicine Hematology & Oncology
DX: D47.1 Chronic myeloproliferative disease (principal)
CPT/HCPCS: 36415; 80053; 83615; 84550; 85025

== ENCOUNTER 2020-12-07 04:10 | Outpatient (CLI) | payer OTHER, SELFPAY ==
[2020-12-07 07:30] LABS: Abs Immature Grans 13.99 10^3/uL (0.0-0.06); HCT 43.3 % (40.0-50.0); HGB 13.4 g/dL (13.5-17.5); MCH 25.7 pg (27.0-33.0); MCHC 30.9 % (32.0-36.0); MPV 9.8 fL (8.0-11.0); Nucleated RBC 2 %; RBC 5.22 10^6/uL (4.36-5.78); RDW 23.8 % (11.8-14.1); RDW-SD 68.8 fL
[2020-12-07 07:36] LABS: ALT 22 U/L (16-63); AST 38 U/L (15-37); Albumin 2.5 g/dL (3.4-5.0); Alkaline Phosphatase 427 U/L (46-116); Anion Gap 7.8 mmol/L (3-11); BUN 18 mg/dL (7-18); Bilirubin, Total 1.1 mg/dL (0.2-1.0); CO2 26.2 mmol/L (21.0-32.0); CREATININE 1.2 mg/dL (0.70-1.30); Calcium 8.4 mg/dL (8.5-10.1); Chloride 104 mmol/L (98-107); Glucose 79 mg/dL (74-106); LDH 418 U/L (85-227); Potassium 3.8 mmol/L (3.5-5.1); Sodium 138 mmol/L (136-145); Uric Acid 5.9 mg/dL (3.5-7.2)
[2020-12-07 08:08] LABS: Absolute Lymphocyte Count 2.76 10^3/uL (1.2-3.4); Absolute Neutrophil Count 48.28 10^3/uL (1.2-6.7); Bands % 20; Platelet Count 277 10^3/uL (130-400); WBC 68.97 10^3/uL (4.4-10.8)
[2020-12-07 08:09] LABS: Absolute Eosinophil Count 4.14 10^3/uL (0.0-0.7); Absolute Monocyte Count 2.07 10^3/uL (0.1-0.8)
[2020-12-07 08:10] LABS: Anisocytosis 3+; Diff Comment Manual Differential; Hypochromasia 1+; Macrocytosis 1+; Metamyelocytes % 8; Microcytosis 1+; Myelocytes % 9; Polychromasia Present
[2020-12-07 08:11] LABS: Poikilocytes 2+
== END 2020-12-07 04:11 | disposition home or self-care (01) ==
LOC: LBO 04:10
PROVIDERS: PCP Nurse Practitioner; Visit Provider Internal Medicine Hematology & Oncology
DX: D47.1 Chronic myeloproliferative disease (principal)
CPT/HCPCS: 36415; 80053; 83615; 84550; 85025

== ENCOUNTER 2020-12-13 10:53 | Outpatient (REF) | payer OTHER, SELFPAY ==
[2020-12-13 15:17] LABS: HCT 44.3 % (40.0-50.0); HGB 13.4 g/dL (13.5-17.5); MCH 25.5 pg (27.0-33.0); MCHC 30.2 % (32.0-36.0); MCV 84.2 fL (80-95); MPV 11.2 fL (8.0-11.0); Nucleated RBC 1 %; RBC 5.26 10^6/uL (4.36-5.78); RDW 24.3 % (11.8-14.1); RDW-SD 71.9 fL
[2020-12-13 15:23] LABS: ALT 31 U/L (16-63); AST 47 U/L (15-37); Albumin 2.6 g/dL (3.4-5.0); Alkaline Phosphatase 489 U/L (46-116); Anion Gap 13.6 mmol/L (3-11); BUN 17 mg/dL (7-18); Bilirubin, Total 1.1 mg/dL (0.2-1.0); CO2 24.4 mmol/L (21.0-32.0); CREATININE 1.1 mg/dL (0.70-1.30); Calcium 8.5 mg/dL (8.5-10.1); Chloride 103 mmol/L (98-107); Glucose 62 mg/dL (74-106); Potassium 4.2 mmol/L (3.5-5.1); Sodium 141 mmol/L (136-145); Total Protein 5.8 g/dL (6.4-8.2)
[2020-12-13 15:29] LABS: Absolute Neutrophil Count 51.34 10^3/uL (1.2-6.7); Bands % 15; WBC 67.55 10^3/uL (4.4-10.8)
[2020-12-13 15:30] LABS: Absolute Eosinophil Count 3.38 10^3/uL (0.0-0.7); Absolute Lymphocyte Count 3.38 10^3/uL (1.2-3.4); Absolute Monocyte Count 4.73 10^3/uL (0.1-0.8); Anisocytosis 2+; Diff Comment Manual Differential; Metamyelocytes % 5; Myelocytes % 2; Polychromasia Present
[2020-12-13 15:31] LABS: Platelet Count 368 10^3/uL (130-400)
== END 2020-12-13 10:54 | disposition home or self-care (01) ==
LOC: LBN 10:53
PROVIDERS: PCP Nurse Practitioner; Visit Provider Nurse Practitioner
DX: R79.89 Other specified abnormal findings of blood chemistry (principal); J45.909 Unspecified asthma, uncomplicated
CPT/HCPCS: 80053; 85025

== ENCOUNTER 2020-12-18 03:30 | Outpatient (CLI) | payer OTHER, SELFPAY ==
[2020-12-18 12:13] LABS: HCT 42.6 % (40.0-50.0); HGB 12.9 g/dL (13.5-17.5); MCH 25.6 pg (27.0-33.0); MCHC 30.3 % (32.0-36.0); MCV 84.5 fL (80-95); MPV 10.5 fL (8.0-11.0); RBC 5.04 10^6/uL (4.36-5.78); RDW 24.1 % (11.8-14.1); RDW-SD 70.7 fL
[2020-12-18 12:33] LABS: ALT 40 U/L (16-63); AST 54 U/L (15-37); Albumin 2.7 g/dL (3.4-5.0); Alkaline Phosphatase 452 U/L (46-116); Anion Gap 9.1 mmol/L (3-11); BUN 46 mg/dL (7-18); Bilirubin, Total 0.9 mg/dL (0.2-1.0); CO2 26.9 mmol/L (21.0-32.0); CREATININE 1.2 mg/dL (0.70-1.30); Calcium 8.4 mg/dL (8.5-10.1); Chloride 103 mmol/L (98-107); Glucose 88 mg/dL (74-106); LDH 432 U/L (85-227); Potassium 4.5 mmol/L (3.5-5.1); Sodium 139 mmol/L (136-145); Total Protein 6.2 g/dL (6.4-8.2)
[2020-12-18 12:40] LABS: Absolute Eosinophil Count 4.99 10^3/uL (0.0-0.7); Absolute Lymphocyte Count 4.99 10^3/uL (1.2-3.4); Absolute Monocyte Count 7.13 10^3/uL (0.1-0.8); Absolute Neutrophil Count 46.35 10^3/uL (1.2-6.7); Bands % 10
[2020-12-18 12:41] LABS: Nucleated RBC 0 %
[2020-12-18 12:47] LABS: Platelet Count 446 10^3/uL (130-400); WBC 71.31 10^3/uL (4.4-10.8)
[2020-12-18 12:48] LABS: Anisocytosis 3+; Diff Comment Manual Differential; Myelocytes % 3; Poikilocytes 1+; Polychromasia Present
[2020-12-26 08:51] LABS: Metamyelocytes % 8
== END 2020-12-18 03:31 | disposition home or self-care (01) ==
LOC: LBO 03:30
PROVIDERS: PCP Nurse Practitioner; Visit Provider Internal Medicine Hematology & Oncology
DX: D47.1 Chronic myeloproliferative disease (principal)
CPT/HCPCS: 36415; 80053; 83615; 84550; 85025

== ENCOUNTER 2020-12-20 11:29 | Emergency (ER) | payer OTHER, SELFPAY ==
[2020-12-20] VITALS (72 sets, daily range): BP systolic 79–106; BP diastolic 33–49; PULSE 63–72; RESP 14–22; TEMP 36.5–37.1; O2SAT 92–99
--- NOTE | 2020-12-20 11:45 | RT.EKG_ITS ---
APPROVED REPORT Exam: Resting ECG Reason for Exam: weakness Patient Location: E HR:64 bpm ECG Measurements Heart Rate 64 AXIS ID 204 P 33 QRSd 80 QRS -25 QT 457 T 43 QTc 470 Conclusion Sinus rhythm...normal P axis, V-rate 60- 99. No STEMI. I have reviewed and interpreted ECG and agree with software generated interpretation.
[2020-12-20] MEDS: Normal Saline 1,000 ML 1000 ML IV (11:55)
[2020-12-20 12:06] LABS: HCT 22.3 % (40.0-50.0); MCH 26.3 pg (27.0-33.0); MCHC 31.4 % (32.0-36.0); MCV 83.8 fL (80-95); MPV 11.2 fL (8.0-11.0); Nucleated RBC 1 %; Platelet Count 599 10^3/uL (130-400); RBC 2.66 10^6/uL (4.36-5.78); RDW 24.7 % (11.8-14.1); RDW-SD 71.5 fL
--- NOTE | 2020-12-20 12:15 | DI.CT_ITS ---
Exam(s) CT THORAX ABD/PEL CTA EXAM: CT THORAX ABD/PEL CTA CLINICAL HISTORY: GI bleed , hx of AAA repair, chemo pt. TECHNIQUE: Imaging Protocol: Axial computed tomography images with coronal and sagittal reformatted images were created and reviewed CONTRAST MATERIAL: Intravenous: Omnipaque 350 Contrast volume:100 ml Oral: None COMPARISON: CT CT CHEST/ABD/PEL W from 10/18/2020 FINDINGS: CHEST: LUNGS: Right lung remains clear. No infiltrate. No nodules. No pleural effusion. On the left side there is now a very small left pleural effusion which was not previously present. N o new left lung nodules. No confluent infiltrates.. MEDIASTINUM: There is no hilar nor mediastinal adenopathy. Visualized thyroid unremarkable. CARDIAC: Heart size upper normal. There is a small pericardial effusion now evident. Maximum thickn ess 9 millimeters. Caliber of the thoracic aorta is within normal limits. AORTA: Caliber of the thoracic aorta is within normal limits.There is no evidence of aortic dissectio n. ABDOMEN: Again noted is evidence of surgery for prior aneurysm. [place] sac is unchanged. Vessel coming off o f the proximal left limb is possibly inferior mesenteric artery. Limbs are not included.Common iliac arteries are again noted be calcified slightly prominent in diameter. External iliac arteries are a lso heavily calcified and slightly prominent diameter. There is an aneurysm in the right internal il iac artery just distal to its origin, this exhibiting diameter 2.8 cm, unchanged. There is no eviden ce of dissection flap within the iliac vessels. LIVER: Liver size is somewhat prominent again noted. GALLBLADDER/BILIARY: No obvious gallbladder pathology. CBD is not dilated. PANCREAS: No evidence of pancreatic mass nor dilatation of the pancreatic duct. SPLEEN: There is prominent splenomegaly again noted. Previously described subcapsular area of hypode nsity in the spleen is unchanged. Possibly related to prior subcapsular hematoma. ADRENALS: Left adrenal thickening again noted. KIDNEYS: 3 centimeter exophytic cyst off the lateral cortex of the left kidney is again noted. Also small cyst in the inferior pole right kidney which measures 2 cm. No calculi nor hydronephrosis. No solid renal masses. ABDOMINAL AORTA: As above LYMPH NODES: There is no retroperitoneal nor para-aortic adenopathy. No obvious mesenteric masses. ABDOMINAL WALL: No evidence of significant anterior abdominal wall hernia. GI: Trace amount of fluid in the right paracolic gutter. Also trace fluid in the presacral region no w evident. No bowel obstruction. No free air. No obvious abscess. PELVIS: LYMPH NODES: There is no intrapelvic nor inguinal adenopathy. GI: No evidence of appendicitis.No evidence of sigmoid diverticulitis. URINARY BLADDER: No calculi nor masses evident REPRODUCTIVE: Prostate not enlarged. Seminal vesicles unremarkable OSSEOUS: No significant osseous lesions. Bilateral pars defects at L5 with mild anterolisthesis L5 upon S1 noted. IMPRESSION: 1. Compared to the prior CT scan of 10 18 20 there is now a very small left pleural effusion and a sma ll pericardial effusion. No other new intrathoracic findings. 2. Vasculopathic findings with evidence of previous abdominal aortic surgery again noted. 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 3. Hepatosplenomegaly again subcapsular splenic collection again noted and small amount of perispleni c and subhepatic fluid-ascites noted. Collateral vessels again noted. 4. Benign renal cysts again noted. No solid renal masses nor hydronephrosis. 5. Left adrenal gland thickening noted. No lytic osseous lesions identified. RADIATION DOSE DELIVERED: 1,081mGy.cm Total DLP DATA REPOSITORY: All CT scans at this facility are submitted to the National Radiology Data Registry (NRDR) Dose Index Registry (DIR) with the [employer] (ACR). RADIATION OPTIMIZATION: All CT scans at this facility use at least one of these dose optimization te chniques: automated exposure control; mA and/or kV adjustment per patient size (includes targeted exa ms where dose is matched to clinical indication); or iterative reconstruction.
[2020-12-20] MEDS: Pantoprazole 40 MG VIAL 80 MG IVP (12:20)
[2020-12-20 12:26] LABS: ALT 79 U/L (16-63); AST 105 U/L (15-37); Albumin 2.3 g/dL (3.4-5.0); Alkaline Phosphatase 321 U/L (46-116); Anion Gap 10.4 mmol/L (3-11); Bilirubin, Total 0.5 mg/dL (0.2-1.0); CO2 22.6 mmol/L (21.0-32.0); CREATININE 1.4 mg/dL (0.70-1.30); Calcium 8.3 mg/dL (8.5-10.1); Chloride 106 mmol/L (98-107); Glucose 106 mg/dL (74-106); Magnesium 2.2 mg/dL (1.8-2.4); Potassium 5.2 mmol/L (3.5-5.1); Sodium 139 mmol/L (136-145); Total Protein 5.2 g/dL (6.4-8.2); WBC 89.65 10^3/uL (4.4-10.8)
[2020-12-20 12:28] LABS: Absolute Lymphocyte Count 4.48 10^3/uL (1.2-3.4); Absolute Monocyte Count 5.38 10^3/uL (0.1-0.8); Absolute Neutrophil Count 62.76 10^3/uL (1.2-6.7); Bands % 22
--- NOTE | 2020-12-20 12:28 | NUR.NOTE ---
Nursing Note: 1st unit of uncrossed blood hung @ 1117- see paper TAR for record. Pt resting comfortably on stretcher at this time on security monitor, no complaints. Aware of blood transfusion reaction symptoms to look for and to notify staff if they occur.
[2020-12-20 12:29] LABS: Anisocytosis 2+; BUN 116 mg/dL (7-18); Diff Comment Manual Differential; Hypochromasia 2+; Macrocytosis 1+; Metamyelocytes % 6; Microcytosis 1+; Myelocytes % 11; Other Cells % 1; Poikilocytes 1+; Polychromasia Present; Troponin I < 0.05 ng/mL (<0.06)
[2020-12-20] MEDS: PANTOPRAZOLE 80 MG in Normal Saline 100 ML 10 MG IV (12:45)
--- NOTE | 2020-12-20 13:07 | NUR.NOTE ---
Nursing Note: 1st unit of blood ended @ 1300, no reactions. 2nd unit of uncrossed blood hung. Will CTM.
[2020-12-20] MEDS: Normal Saline 500 ML IV (13:15)
--- NOTE | 2020-12-20 13:17 | ED.GENADUL_ITS ---
Discharge Plan Disposition Patient Disposition: [facility] Condition: Serious Discharge Details Clinical Impression: Acute GI bleeding Primary Care Provider: Gisele Perkins ED Provider: Pola Alvarez Home Meds and New Rx's Prescriptions: No Action indomethacin 25 mg capsule 50 mg PO TID Qty: 90 RF: 3 sildenafil [Viagra] 50 mg tablet 50 mg PO DAILY Qty: 30 RF: 3 atenolol 100 mg tablet 200 mg PO DAILY Qty: 180 RF: 3 Hold Instructions: Home Medication placed on hold at Doctor's office bumetanide 1 mg tablet 1 mg PO DAILY Qty: 90 RF: 3 amlodipine 5 mg tablet 5 mg PO DAILY Qty: 90 RF: 3 Hold Instructions: Home Medication placed on hold at Doctor's office simvastatin 40 mg tablet 40 mg PO DAILY Qty: 90 RF: 3 irbesartan [Avapro] 300 mg tablet 300 mg PO DAILY Qty: 90 RF: 3 Hold Instructions: Home Medication placed on hold at Doctor's office Shingrix (PF) 50 mcg/0.5 mL suspension for reconstitution 50 mcg IM ONCE Qty: 1 RF: 1 triamcinolone acetonide 0.5 % cream 1 applic Topical TID PRN (Reason: leg rash bilateral) Qty: 45 RF: 3 aspirin [Aspirin Low-Strength] 81 MG tablet,chewable 81 mg PO DAILY Qty: 90 RF: 3 Centrum Silver 1 EACH tablet 1 ea PO DAILY RF: 0 Varicella-Zoster Ge/As01b/Pf [Shingrix Vial Kit] 50 MCG INJ 50 mcg IM ONCE Qty: 1 RF: 1 capsaicin 0.1 % cream 1 applic TP DAILY PRNRF: 0 Jakafi 20 mg tablet 20 mg PO BID PRNRF: 0 allopurinol 300 mg tablet 300 mg PO DAILY PRNRF: 0 acetaminophen [Mapap Extra Strength] 500 MG tablet 1,000 mg PO PRN PRNRF: 0 Discharge Data Discharge Date/Time-TO BE ENTERED AT DEPARTURE: 12/20/20 18:07 Medical Decision Making <JOSE LUIS Briones - Last Filed: 12/21/20 08:26> Given patient's hypotension, GI bleed, I did order 2 units of uncrossed blood as patient is unstable telemetry initiated Type and screen are pending at this time, I discussed risk benefit of transfusion and patient is agreeable to his wrist, he is alert, oriented, of decisional capacity minimally responsive to fluids and 2 units of blood no tachycardia, likely secondary to atenolol use, did not take meds today Case discussed with oncology at [facility] Dr. Sinclair. Feels the patient is more of a medical admission and so the critical care team was called the department Patient has received famotidine IV, Protonix IV, and infusion, he is at 3 units of blood and is receiving a fourth I will order IV calcium as his calcium was low initially and we have given a significant amount of blood products He is maintained on telemetry monitoring Case was also discussed with Dr. Gerber, our on-call surgeon and she has consulted on the patient, please see her documentation, she feels as though the patient would be best managed at a tertiary care facility and patient is managed at [facility] for his myelofibrosis Patient is aware that we are likely transferring him at this time blood pressure 96/47 at time of sign out, 1 unit of blood pending Care will be signed out to Pola Alvarez pending [facility] consultation and CTA interpretation by radiologist <JOSE LUIS Goldsmith - Last Filed: 12/20/20 17:49> I assumed care of this 70-year-old gentleman from my colleague JOSE LUIS Allen, please see her initial HPI and examination. At time of signout awaiting CT results and call back from the [facility] critical care team for transfer. Upon my evaluation patient is resting comfortably, speaking full sentences, heart rate in the 70s, blood pressure 98/44. EXAM: CT THORAX ABD/PEL CTA CLINICAL HISTORY: GI bleed , hx of AAA repair, chemo pt. TECHNIQUE: Imaging Protocol: Axial computed tomography images with coronal and sagittal reformatted images were created and reviewed CONTRAST MATERIAL: Intravenous: Omnipaque 350 Contrast volume:100 ml Oral: None COMPARISON: CT CT CHEST/ABD/PEL W from 10/18/2020 FINDINGS: CHEST: LUNGS: Right lung remains clear. No infiltrate. No nodules. No pleural effusion. On the left side there is now a very small left pleural effusion which was not previously present. No new left lung nodules. No confluent infiltrates.. MEDIASTINUM: There is no hilar nor mediastinal adenopathy. Visualized thyroid unremarkable. CARDIAC: Heart size upper normal. There is a small pericardial effusion now evident. Maximum thickness 9 millimeters. Caliber of the thoracic aorta is within normal limits. AORTA: Caliber of the thoracic aorta is within normal limits.There is no evidence of aortic dissection. ABDOMEN: Again noted is evidence of surgery for prior aneurysm. [place] sac is unchanged. Vessel coming off of the proximal left limb is possibly inferior mesenteric artery. Limbs are not included.Common iliac arteries are again noted be calcified slightly prominent in diameter. External iliac arteries are also heavily calcified and slightly prominent diameter. There is an aneurysm in the right internal iliac artery just distal to its origin, this exhibiting diameter 2.8 cm, unchanged. There is no evidence of dissection flap within the iliac vessels. LIVER: Liver size is somewhat prominent again noted. GALLBLADDER/BILIARY: No obvious gallbladder pathology. CBD is not dilated. PANCREAS: No evidence of pancreatic mass nor dilatation of the pancreatic duct. SPLEEN: There is prominent splenomegaly again noted. Previously described subcapsular area of hypodensity in the spleen is unchanged. Possibly related to prior subcapsular hematoma. ADRENALS: Left adrenal thickening again noted. KIDNEYS: 3 centimeter exophytic cyst off the lateral cortex of the left kidney is again noted. Also small cyst in the inferior pole right kidney which measures 2 cm. No calculi nor hydronephrosis. No solid renal masses. ABDOMINAL AORTA: As above LYMPH NODES: There is no retroperitoneal nor para-aortic adenopathy. No obvious mesenteric masses. ABDOMINAL WALL: No evidence of significant anterior abdominal wall hernia. GI: Trace amount of fluid in the right paracolic gutter. Also trace fluid in the presacral region now evident. No bowel obstruction. No free air. No obvious abscess. PELVIS: LYMPH NODES: There is no intrapelvic nor inguinal adenopathy. GI: No evidence of appendicitis.No evidence of sigmoid diverticulitis. URINARY BLADDER: No calculi nor masses evident REPRODUCTIVE: Prostate not enlarged. Seminal vesicles unremarkable OSSEOUS: No significant osseous lesions. Bilateral pars defects at L5 with mild anterolisthesis L5 upon S1 noted. IMPRESSION: 1. Compared to the prior CT scan of 10 18 20 there is now a very small left pleural effusion and a small pericardial effusion. No other new intrathoracic findings. 2. Vasculopathic findings with evidence of previous abdominal aortic surgery again noted. 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 3. Hepatosplenomegaly again subcapsular splenic collection again noted and small amount of perisplenic and subhepatic fluid-ascites noted. Collateral vessels again noted. 4. Benign renal cysts again noted. No solid renal masses nor hydronephrosis. 5. Left adrenal gland thickening noted. No lytic osseous lesions identified. CT imaging with multiple findings however nothing acute to explain his GI bleed. At 1620 I received a call from ICU fellow Dr. Le, after discussing case she feels as though the patient is appropriate for transfer. Patient will be transferred on to the ICU blue team into the care of Dr. Harkins. All appropriate paperwork completed. Patient and family were made aware of my phone call and CT findings, no additional questions or concerns at this time. 1745: blood pressure is 98/47. Patient is maintaining at baseline. No additional questions or concerns at this time. We received a call from [facility] stating that we may initiate transfer. <Dary Osorio DO - Last Filed: 12/21/20 08:26> I have seen and examined this patient. I discussed case and reviewed note with JOSE LUIS Allen and I agree with plan and note as documented. 70-year-old male with a history of myelofibrosis presenting with black stools since yesterday and maroon-colored stool since last night. Denies any fever, vomiting or abdominal pain. BP hypotensive 80s-90s/30s-40s since arrival. His abdomen is soft and nontender. He appears pale but nontoxic and is afebrile. Plan is for IV protonix infusion, blood transfusion and admission or transfer. Patient will need EGD and colonoscopy. Patient likely will benefit from transfer to tertiary care considering his history of myelofibrosis on chemotherapy, and history of abdominal aortic aneurysm repair. HPI <JOSE LUIS Briones - Last Filed: 12/21/20 08:26> General Mode of arrival: ambulatory . Date/Time Provider Initiated Documentation: 12/20/20 11:31 . Limitations to Documentation: no limitations . Information obtained by: patient . HPI Narrative: This 70-year-old gentleman with history of primary myelofibrosis, prediabetes, history of AAA repair, and essential hypertension presents with report of blood in stool sensation of lightheadedness and weakness. Patient states she started with some black tarry stool last evening, one episode followed by maroon stools for the remaining 7 episodes. His last episode was an hour and a half prior to arrival. He denies any abdominal pain, chest pain, shortness of breath. He denies any nonsteroidal use aside from a baby aspirin which she does take daily. He denies any falls or injuries. He did start on oral chemotherapy approximately 6 days ago. He is followed by [facility]. He denies prior history of similar symptoms in the past. He denies any additional anticoagulation. He has status post AAA repair in 2018. Denies any syncopal event. Related Data Home Medications Medication Instructions Recorded Confirmed aspirin [Aspirin Low-Strength] 81 mg PO DAILY #90 tab-cap 09/08/12 12/20/20 [id number] 1 ea PO DAILY 08/15/14 12/20/20 [Centrum Silver Tablet] acetaminophen [Tylenol] 1,000 mg PO PRN PRN 06/25/16 12/20/20 indomethacin 25 mg capsule 50 mg PO TID #90 tab-cap 06/04/18 12/20/20 sildenafil 50 mg tablet 50 mg PO DAILY #30 tab-cap 06/04/18 12/20/20 varicella-zoster glycoE vacc-AS01B 50 mcg IM ONCE #1 each 05/25/19 12/20/20 adj(PF) 50 mcg/0.5 mL IM susp, kit capsaicin 0.1 % topical cream 1 applic TP DAILY PRN gm 02/10/20 12/20/20 amlodipine 5 mg tablet 5 mg PO DAILY #90 tab 05/29/20 12/20/20 atenolol 100 mg tablet 200 mg PO DAILY #180 tab-cap 05/29/20 12/20/20 bumetanide 1 mg tablet 1 mg PO DAILY #90 tab-cap 05/29/20 12/20/20 irbesartan 300 mg tablet 300 mg PO DAILY #90 tab 05/29/20 12/20/20 simvastatin 40 mg tablet 40 mg PO DAILY #90 tab-cap 05/29/20 12/20/20 allopurinol 300 mg tablet 300 mg PO DAILY PRN 11/30/20 12/20/20 ruxolitinib 20 mg tablet 20 mg PO BID PRN 11/30/20 12/20/20 triamcinolone acetonide 0.5 % 1 applic TOPICAL TID PRN #45 gm 12/13/20 12/20/20 topical cream Previous Rx's Medication Instructions Recorded indomethacin 25 mg capsule 50 mg PO TID #90 tab-cap 06/04/18 sildenafil 50 mg tablet 50 mg PO DAILY #30 tab-cap 06/04/18 varicella-zoster glycoE vacc-AS01B 50 mcg IM ONCE #1 each 05/25/19 adj(PF) 50 mcg/0.5 mL IM susp, kit amlodipine 5 mg tablet 5 mg PO DAILY #90 tab 05/29/20 atenolol 100 mg tablet 200 mg PO DAILY #180 tab-cap 05/29/20 bumetanide 1 mg tablet 1 mg PO DAILY #90 tab-cap 05/29/20 irbesartan 300 mg tablet 300 mg PO DAILY #90 tab 05/29/20 simvastatin 40 mg tablet 40 mg PO DAILY #90 tab-cap 05/29/20 triamcinolone acetonide 0.5 % 1 applic TOPICAL TID PRN #45 gm 12/13/20 topical cream Allergies Allergy/AdvReac Type Severity Reaction Status Date / Time lisinopril Allergy Unknown swelling Verified 12/20/20 11:51 hydrochlorothiazide AdvReac generalized Verified 12/20/20 11:51 edema General Stated Complaint: GI Bleed TIFF: 2 Review of Systems <JOSE LUIS Briones - Last Filed: 12/21/20 08:26> All systems reviewed & are unremarkable except as noted in HPI and below PFSH <JOSE LUIS Briones - Last Filed: 12/21/20 08:26> Medical History (Updated 12/20/20 @ 16:55 by JOSE LUIS Goldsmith) Acquired hallux limitus of both feet Bunion, right 01/05/20 bilateral bunions (R worse than L), f/u 4 weeks. Hallux valgus with bunions of left foot Hallux valgus with bunions of right foot Hyperlipemia Hypertension Low HDL (under 40) Lung cancer screening declined by patient Peripheral edema Primary osteoarthritis of both feet Surgical History (Updated 09/18/20 @ 16:48 by Sho Reed RN) Amputation toe (09/06/20) 09/06/20 2nd toe right foot, osteomyelitis Colonoscopy - IV Sedation (06/25/16) H/O abdominal aortic aneurysm repair (01/01/19) [facility] Vascular knee surgery (08/31/14) pneumothorax Social History (Updated 03/01/19 @ 13:15 by Cristel Peter RN) Smoking/Tobacco Use Status: Former Tobacco Use Quit Date: 01/01/19 Pack-years: 40 Tobacco: How many years used: 40 Smoking risk assessment performed?: Yes Alcohol Intake: current Alcohol Intake frequency: holidays/special occasions o nly Alcohol type: beer Details: couple of Budweiser cans a day (2-4, 12 oz). Drug use: Current Sobriety Substance use type: does not use and marijuana Pets and animals: Yes Pets and animals: dog(s) Duration: 30-45 minutes/day Frequency: 5-6 times per week Exam <JOSE LUIS Briones - Last Filed: 12/21/20 08:26> Const General: ill appearing HENMT Head: normal to inspection Teeth and gingiva: dentition normal Eyes Sclera: sclerae normal Resp Effort & Inspection: normal respiratory effort and able to speak in complete sentences Cardio Rate: regular rate Rhythm: regular rhythm GI Palpation: splenomegaly and nontender Other: no abdominal bruit or pulsatile mass Skin Other: pallor Neuro General: patient alert and patient oriented x3 Extrem Other: 1+ edema bilaterally Psych Appearance: well kempt Speech and Movement: speech and movement normal Course <JOSE LUIS Briones - Last Filed: 12/21/20 08:26> Vital Signs Vital signs: Vital Signs Temperature 36.5 C 12/20/20 11:48 Pulse 66 12/20/20 11:48 Respiratory Rate 12/20/20 11:48 Blood Pressure 89/45 L 12/20/20 11:48 Pulse Oximetry 99 12/20/20 11:48 Temperature 36.5 C 12/20/20 11:48 Temperature Source Skin 12/20/20 11:48 Pulse 64 12/20/20 13:01 Pulse 65 12/20/20 13:10 Respiratory Rate 19 12/20/20 13:10 Respiratory Effort 12/20/20 11:48 Blood Pressure 83/34 L 12/20/20 13:01 Blood Pressure Mean 46 12/20/20 13:01 Blood Pressure Position Supine 12/20/20 11:48 Pulse Oximetry 93 12/20/20 13:10 Oxygen Delivery Method Room Air 12/20/20 11:48 Oxygen Flow Rate 0 12/20/20 11:48 Pain Level 0 12/20/20 11:48 Lab/Test Results Lab/Test Results: Laboratory Tests Range/Units 12/20/20 12/20/20 12/20/20 11:55 11:55 11:55 WBC (4.4-10.8) 10^3/uL 89.65 H* RBC (4.36-5.78) 10^6/uL 2.66 L Hgb (13.5-17.5) g/dL 7.0 L D Hct (40.0-50.0) % 22.3 L D MCV (80-95) fL 83.8 MCH (27.0-33.0) pg 26.3 L MCHC (32.0-36.0) % 31.4 L RDW (11.8-14.1) % 24.7 H Plt Count (130-400) 10^3/uL 599 H MPV (8.0-11.0) fL 11.2 H Immature Gran % See Differential Neutrophils % 48.0 Band Neutrophils % 22 Lymphocytes % 5.0 Atypical Lymphs % Monocytes % 6.0 Eosinophils % 1.0 Basophils % 0.0 Metamyelocytes % 6 Myelocytes % 11 Promyelocytes % Other Cells % 1 Nucleated RBC % % 1 Absolute Neutrophils (1.2-6.7) 10^3/uL 62.76 H Absolute Lymphocytes (1.2-3.4) 10^3/uL 4.48 H Absolute Monocytes (0.1-0.8) 10^3/uL 5.38 H Absolute Eosinophils (0.0-0.7) 10^3/uL 0.90 H Absolute Basophils (0.0-0.2) 10^3/uL 0.00 RBC Morphology See Below Polychromasia Present Hypochromasia 2+ Poikilocytosis 1+ Basophilic Stippling Anisocytosis 2+ Microcytosis 1+ Macrocytosis 1+ Spherocytes Tear Drop Cells Ovalocytes Stomatocytes [place] Bodies [place] Cells/Echinocytes Acanthocytes (Spur) Schistocytes Sodium (136-145) mmol/L 139 Potassium (3.5-5.1) mmol/L 5.2 H Chloride (98-107) mmol/L 106 Carbon Dioxide (21.0-32.0) mmol/L 22.6 Anion Gap (3-11) mmol/L 10.4 BUN (7-18) mg/dL 116 H* D Creatinine (0.70-1.30) mg/dL 1.4 H Estimated GFR/1.73 m2 (mL/min/1.73m2) 50.40 Glucose (74-106) mg/dL 106 Calcium (8.5-10.1) mg/dL 8.3 L Magnesium (1.8-2.4) mg/dL 2.2 Total Bilirubin (0.2-1.0) mg/dL 0.5 AST (15-37) U/L 105 H ALT (16-63) U/L 79 H Alkaline Phosphatase (46-116) U/L 321 H Troponin I (<0.06) ng/mL < 0.05 Total Protein (6.4-8.2) g/dL 5.2 L Albumin (3.4-5.0) g/dL 2.3 L Patient ABO/Rh O Positive Antibody Screen NEGATIVE Crossmatch See Detail Range/Units 12/20/20 12/20/20 12:02 12:02 WBC (4.4-10.8) 10^3/uL Cancelled RBC (4.36-5.78) 10^6/uL Cancelled Hgb (13.5-17.5) g/dL Cancelled Hct (40.0-50.0) % Cancelled MCV (80-95) fL Cancelled MCH (27.0-33.0) pg Cancelled MCHC (32.0-36.0) % Cancelled RDW (11.8-14.1) % Cancelled Plt Count (130-400) 10^3/uL Cancelled MPV (8.0-11.0) fL Cancelled Immature Gran % Cancelled Neutrophils % Cancelled Band Neutrophils % Cancelled Lymphocytes % Cancelled Atypical Lymphs % Cancelled Monocytes % Cancelled Eosinophils % Cancelled Basophils % Cancelled Metamyelocytes % Cancelled Myelocytes % Cancelled Promyelocytes % Cancelled Other Cells % Cancelled Nucleated RBC % % Cancelled Absolute Neutrophils (1.2-6.7) 10^3/uL Cancelled Absolute Lymphocytes (1.2-3.4) 10^3/uL Cancelled Absolute Monocytes (0.1-0.8) 10^3/uL Cancelled Absolute Eosinophils (0.0-0.7) 10^3/uL Cancelled Absolute Basophils (0.0-0.2) 10^3/uL Cancelled RBC Morphology Cancelled Polychromasia Cancelled Hypochromasia Cancelled Poikilocytosis Cancelled Basophilic Stippling Cancelled Anisocytosis Cancelled Microcytosis Cancelled Macrocytosis Cancelled Spherocytes Cancelled Tear Drop Cells Cancelled Ovalocytes Cancelled Stomatocytes Cancelled [place] Bodies Cancelled [place] Cells/Echinocytes Cancelled Acanthocytes ([place]) Cancelled Schistocytes Cancelled Sodium (136-145) mmol/L Cancelled Potassium (3.5-5.1) mmol/L Cancelled Chloride (98-107) mmol/L Cancelled Carbon Dioxide (21.0-32.0) mmol/L Cancelled Anion Gap (3-11) mmol/L Cancelled BUN (7-18) mg/dL Cancelled Creatinine (0.70-1.30) mg/dL Cancelled Estimated GFR/1.73 m2 (mL/min/1.73m2) Cancelled Glucose (74-106) mg/dL Cancelled Calcium (8.5-10.1) mg/dL Cancelled Magnesium (1.8-2.4) mg/dL Cancelled Total Bilirubin (0.2-1.0) mg/dL Cancelled AST (15-37) U/L Cancelled ALT (16-63) U/L Cancelled Alkaline Phosphatase (46-116) U/L Cancelled Troponin I (<0.06) ng/mL Cancelled Total Protein (6.4-8.2) g/dL Cancelled Albumin (3.4-5.0) g/dL Cancelled Patient ABO/Rh Antibody Screen Crossmatch Critical Care Time <JOSE LUIS Briones - Last Filed: 12/21/20 08:26> Critical Care Time Critical Care Time: Yes Total Critical Care Time: 60 Attestation: IV blood, IV calcium, telemetry monitoring, [facility] consultation, IV Protonix, IV fluid resuscitation Sign Out <JOSE LUIS Briones - Last Filed: 12/21/20 08:26> Sign Out Data: Sign Out Comment: pending cta and [facility] consultation Last updated by Sailaja Allen PA at 12/20/20 16:04
[2020-12-20 13:42] LABS: Prothrombin Time 12.5 sec (9.3-11.0)
[2020-12-20 13:43] LABS: INR 1.2 (0.9-1.1)
--- NOTE | 2020-12-20 14:05 | NUR.NOTE ---
Nursing Note: 2nd unit of blood completed, no reactions, See paper [facility]AR for documentation. resting comfortably on stretcher, no complaints, waiting for more blood from lab.
[2020-12-20 14:17] LABS: C-Reactive Protein 1.27 mg/dL (0.0-0.3); Uric Acid 7.8 mg/dL (3.5-7.2)
[2020-12-20 14:28] LABS: Source Nasal/Nares
[2020-12-20 15:34] LABS: Troponin I < 0.05 ng/mL (<0.06)
[2020-12-20] MEDS: Omnipaque 350 MG/ML 100 ML BTL IJ (15:35)
[2020-12-20] MEDS: Normal Saline - Diluent 50 ML VIAL IV (15:36)
[2020-12-20 15:54] LABS: COVID-19 PCR Negative (Negative)
[2020-12-20] MEDS: Calcium Gluconate 4.65 MEQ/10 ML VIAL 4.65 MG IVP (16:37)
[2020-12-20] MEDS: FAMOTIDINE 20 MG/50 ML BAG 200 MG IVPB (17:15)
--- NOTE | 2020-12-20 18:03 | NUR.NOTE ---
Nursing Note: Report given to Kaela, blood transfusion transferred to paper TAR and sent with Liz Johnson
== END 2020-12-20 18:07 | disposition short-term general hospital (02) ==
PROVIDERS: Physician Assistant; Emergency Provider Physician Assistant; PCP Nurse Practitioner
DX: K92.2 Gastrointestinal hemorrhage, unspecified (principal); I95.9 Hypotension, unspecified
CPT/HCPCS: 36415; 36430; 74177; 80053; 86850; 86900; 86901; 86920; 87635; 93005; 96361; 96365; 96366; 96375; 99291; 83735; 84484; 84550; 85025; 85610; 86140; 93010; J0610; J3490; P9016

== ENCOUNTER 2020-12-25 21:50 | Outpatient (CLI) | payer OTHER, SELFPAY ==
[2020-12-25 15:37] LABS: HCT 27.5 % (40.0-50.0); HGB 8.8 g/dL (13.5-17.5); MCH 28.4 pg (27.0-33.0); MCV 88.7 fL (80-95); MPV 11.8 fL (8.0-11.0); Nucleated RBC 3 %; Platelet Count 279 10^3/uL (130-400); RDW 21.9 % (11.8-14.1); RDW-SD 66.7 fL
[2020-12-25 16:33] LABS: WBC 58.01 10^3/uL (4.4-10.8)
[2020-12-25 16:34] LABS: Absolute Eosinophil Count 4.64 10^3/uL (0.0-0.7); Absolute Monocyte Count 3.48 10^3/uL (0.1-0.8); Absolute Neutrophil Count 38.29 10^3/uL (1.2-6.7); Bands % 14
[2020-12-25 16:35] LABS: Metamyelocytes % 8; Myelocytes % 5; Promyelocytes % 2
[2020-12-25 16:36] LABS: Anisocytosis 2+; Basophilic Stippling 1+; Diff Comment Manual Differential; Macrocytosis 1+; Microcytosis 1+; Poikilocytes 1+; Polychromasia Present
[2020-12-25 17:00] LABS: ALT 36 U/L (16-63); AST 44 U/L (15-37); Albumin 2.8 g/dL (3.4-5.0); Alkaline Phosphatase 371 U/L (46-116); Anion Gap 9.6 mmol/L (3-11); BUN 24 mg/dL (7-18); Bilirubin, Total 0.8 mg/dL (0.2-1.0); CO2 24.4 mmol/L (21.0-32.0); CREATININE 1.2 mg/dL (0.70-1.30); Calcium 7.8 mg/dL (8.5-10.1); Chloride 107 mmol/L (98-107); Glucose 90 mg/dL (74-106); LDH 516 U/L (85-227); Sodium 141 mmol/L (136-145); Total Protein 5.6 g/dL (6.4-8.2); Uric Acid 6.7 mg/dL (3.5-7.2)
== END 2020-12-25 21:51 | disposition home or self-care (01) ==
LOC: LBO 21:50
PROVIDERS: PCP Nurse Practitioner; Visit Provider Internal Medicine Hematology & Oncology
DX: D47.1 Chronic myeloproliferative disease (principal)
CPT/HCPCS: 36415; 80053; 83615; 84550; 85025

== ENCOUNTER 2020-12-28 03:27 | Outpatient (CLI) | payer OTHER, SELFPAY ==
[2020-12-28 12:29] LABS: Abs Immature Grans 20.73 10^3/uL (0.0-0.06); HCT 29.8 % (40.0-50.0); HGB 9.2 g/dL (13.5-17.5); MCH 28.8 pg (27.0-33.0); MCHC 30.9 % (32.0-36.0); MCV 93.4 fL (80-95); MPV 11.8 fL (8.0-11.0); Platelet Count 241 10^3/uL (130-400); RBC 3.19 10^6/uL (4.36-5.78); RDW 23.4 % (11.8-14.1); RDW-SD 75.9 fL
[2020-12-28 12:47] LABS: ALT 35 U/L (16-63); AST 58 U/L (15-37); Albumin 2.8 g/dL (3.4-5.0); Alkaline Phosphatase 439 U/L (46-116); Anion Gap 8.2 mmol/L (3-11); BUN 23 mg/dL (7-18); Bilirubin, Total 0.9 mg/dL (0.2-1.0); CO2 27.8 mmol/L (21.0-32.0); CREATININE 1.4 mg/dL (0.70-1.30); Calcium 8.3 mg/dL (8.5-10.1); Chloride 105 mmol/L (98-107); Glucose 96 mg/dL (74-106); LDH 645 U/L (85-227); Potassium 4.2 mmol/L (3.5-5.1); Sodium 141 mmol/L (136-145); Uric Acid 6.7 mg/dL (3.5-7.2)
[2020-12-28 12:54] LABS: Absolute Neutrophil Count 59.37 10^3/uL (1.2-6.7); Bands % 14; Nucleated RBC 14 %; WBC 89.96 10^3/uL (4.4-10.8)
[2020-12-28 12:55] LABS: Anisocytosis 2+; Basophilic Stippling Present; Diff Comment Manual Differential; Hypochromasia 1+; Metamyelocytes % 7; Myelocytes % 17; Poikilocytes 1+; Polychromasia Present
== END 2020-12-28 03:28 | disposition home or self-care (01) ==
LOC: LBO 03:27
PROVIDERS: PCP Nurse Practitioner; Visit Provider Internal Medicine Hematology & Oncology
DX: D47.1 Chronic myeloproliferative disease (principal); E88.3 Tumor lysis syndrome
CPT/HCPCS: 36415; 80053; 83615; 84550; 85025

== ENCOUNTER 2020-12-30 11:15 | Emergency (ER) | payer OTHER, SELFPAY ==
[2020-12-30] VITALS (33 sets, daily range): BP systolic 86–122; BP diastolic 39–96; PULSE 57–67; RESP 12–22; TEMP 36.1–36.4; O2SAT 92–100
[2020-12-30] MEDS: Normal Saline 1,000 ML 1000 ML IV (11:40)
[2020-12-30] MEDS: Pantoprazole 40 MG VIAL 80 MG IVP (11:45)
[2020-12-30 12:07] LABS: Abs Immature Grans 25.55 10^3/uL (0.0-0.06); MCH 29.4 pg (27.0-33.0); MCHC 30.9 % (32.0-36.0); MCV 95.3 fL (80-95); MPV 11.8 fL (8.0-11.0); Nucleated RBC 9 %; Platelet Count 301 10^3/uL (130-400); RBC 2.14 10^6/uL (4.36-5.78); RDW 24.7 % (11.8-14.1); RDW-SD 80.3 fL
--- NOTE | 2020-12-30 12:10 | ED.GENADUL_ITS ---
Discharge Plan Disposition Patient Disposition: [facility] Condition: Serious Discharge Details Clinical Impression: Acute GI bleeding Primary Care Provider: Gisele Perkins ED Provider: Jay Riley Home Meds and New Rx's Prescriptions: Continued sildenafil [Viagra] 50 mg tablet 50 mg PO DAILY Qty: 30 RF: 3 bumetanide 1 mg tablet 1 mg PO DAILY Qty: 90 RF: 3 amlodipine 5 mg tablet 5 mg PO DAILY Qty: 90 RF: 3 Hold Instructions: Home Medication placed on hold at Doctor's office simvastatin 40 mg tablet 40 mg PO DAILY Qty: 90 RF: 3 irbesartan [Avapro] 300 mg tablet 300 mg PO DAILY Qty: 90 RF: 3 Hold Instructions: Home Medication placed on hold at Doctor's office atenolol 100 mg tablet 100 mg PO DAILY Qty: 180 RF: 3 Hold Instructions: Home Medication placed on hold at Doctor's office Shingrix (PF) 50 mcg/0.5 mL suspension for reconstitution 50 mcg IM ONCE Qty: 1 RF: 1 triamcinolone acetonide 0.5 % cream 1 applic Topical TID PRN (Reason: leg rash bilateral) Qty: 45 RF: 3 aspirin [Aspirin Low-Strength] 81 MG tablet,chewable 81 mg PO DAILY Qty: 90 RF: 3 Centrum Silver 1 EACH tablet 1 ea PO DAILY RF: 0 Varicella-Zoster Ge/As01b/Pf [Shingrix Vial Kit] 50 MCG INJ 50 mcg IM ONCE Qty: 1 RF: 1 pantoprazole 40 mg tablet,delayed release (DR/EC) 40 mg PO DAILY RF: 0 allopurinol 300 mg tablet 300 mg PO DAILY RF: 0 Jakafi 20 mg tablet 20 mg PO BID RF: 0 acetaminophen [Mapap Extra Strength] 500 MG tablet 1,000 mg PO PRN PRNRF: 0 Medical Decision Making 70-year-old male with a history of myelofibrosis, history of upper GI bleed with duodenal ulceration that was cauterized under endoscopy at [facility] after the patient was transferred there last week on November 20. Patient states she had resolution of the previous GI bleed, was having normal brown stools and feeling well until last night when he had recurrence of dark black stool 4-5 times with now associated weakness. He arrives to the ER slightly hypotensive, but interactive and alert. Exam reveals guaiac positive however like stool. Patient given 500 cc normal saline by nursing staff with improvement of blood pressure to proxy 110 systolic. I am concerned for recurrent duodenal ulcer with upper GI bleeding. Patient's laboratories show a leukocytosis of 113, hemoglobin 6.3, hematocrit 20.4 with platelets of 301. BUN has risen significantly to 67, creatinine 1.3. Give when the patient's relative hypotension, recurrent anemia and probable recurrent duodenal ulceration with bleeding, he was consented for transfusion of 2 units of packed red blood cells, he was given 80 mg Protonix IV bolus. (Due to constraints of transport, patient was transferred with 1 unit packed cells hanging.). Given the patient's myelofibrosis, recent admission at [facility] for endoscopy with cautery, and relative hypotension with need for blood products, I did discuss the case with on-call hospitalist at [facility], Dr. Sinha, who accepts the patient in transfer. Lab Data Lab results reviewed: Yes I reviewed the patient's lab results. Labs: Laboratory Results - last 24 hr 12/30/20 12/30/20 12/30/20 11:45 11:45 11:45 WBC 113.12 H* RBC 2.14 L Hgb 6.3 L* D Hct 20.4 L* D MCV 95.3 H MCH 29.4 MCHC 30.9 L RDW 24.7 H Plt Count 301 MPV 11.8 H Immature Gran % See Differential Neutrophils % 46.0 Band Neutrophils % 12 Lymphocytes % 9.0 Monocytes % 10.0 Eosinophils % 4.0 Basophils % 2.0 Metamyelocytes % 8 Myelocytes % 7 Promyelocytes % 2 Nucleated RBC % 9 Absolute Neutrophils 65.61 H Absolute Lymphocytes 10.18 H Absolute Monocytes 11.31 H Absolute Eosinophils 4.52 H Absolute Basophils 2.26 H RBC Morphology See Below Polychromasia Present Hypochromasia 2+ Poikilocytosis 3+ Anisocytosis 3+ Microcytosis 1+ Macrocytosis 1+ PT 12.7 H INR 1.3 H Sodium 141 Potassium 5.0 Chloride 106 Carbon Dioxide 24.3 Anion Gap 10.7 BUN 67 H D Creatinine 1.3 Estimated GFR/1.73 m2 54.90 Glucose 116 H Calcium 7.5 L Magnesium 1.9 Total Bilirubin 0.7 AST 65 H ALT 34 Alkaline Phosphatase 345 H Troponin I < 0.05 Total Protein 5.0 L Albumin 2.2 L Patient ABO/Rh Crossmatch 12/30/20 11:45 WBC RBC Hgb Hct MCV MCH MCHC RDW Plt Count MPV Immature Gran % Neutrophils % Band Neutrophils % Lymphocytes % Monocytes % Eosinophils % Basophils % Metamyelocytes % Myelocytes % Promyelocytes % Nucleated RBC % Absolute Neutrophils Absolute Lymphocytes Absolute Monocytes Absolute Eosinophils Absolute Basophils RBC Morphology Polychromasia Hypochromasia Poikilocytosis Anisocytosis Microcytosis Macrocytosis PT INR Sodium Potassium Chloride Carbon Dioxide Anion Gap BUN Creatinine Estimated GFR/1.73 m2 Glucose Calcium Magnesium Total Bilirubin AST ALT Alkaline Phosphatase Troponin I Total Protein Albumin Patient ABO/Rh O Positive Crossmatch See Detail HPI General Mode of arrival: ambulatory . Date/Time Provider Initiated Documentation: 12/30/20 11:22 . Limitations to Documentation: no limitations . Information obtained by: patient . History of Present Illness 70 year old M presents to the emergency department with the chief complaint of Recurrent black stool, described as moderate and similar to prior episodes, and is localized to the abdomen. Patient reports no radiation. Patient started experiencing this hour(s) and it has been intermittent. No relieving factors improve symptom(s), No exacerbating factors reported . Patient notes weakness; denies chest pain and syncope. Patient did receive the following treatments prior to arrival, none and other (Protonix at home) Related Data Home Medications Medication Instructions Recorded Confirmed aspirin [Aspirin Low-Strength] 81 mg PO DAILY #90 tab-cap 09/08/12 12/30/20 Centrum Silver 1 ea PO DAILY 08/15/14 12/30/20 acetaminophen [Mapap Extra 1,000 mg PO PRN PRN 06/25/16 12/30/20 Strength] sildenafil 50 mg tablet 50 mg PO DAILY #30 tab-cap 06/04/18 12/30/20 varicella-zoster glycoE vacc-AS01B 50 mcg IM ONCE #1 each 05/25/19 12/30/20 adj(PF) 50 mcg/0.5 mL IM susp, kit amlodipine 5 mg tablet 5 mg PO DAILY #90 tab 05/29/20 12/30/20 bumetanide 1 mg tablet 1 mg PO DAILY #90 tab-cap 05/29/20 12/30/20 irbesartan 300 mg tablet 300 mg PO DAILY #90 tab 05/29/20 12/30/20 simvastatin 40 mg tablet 40 mg PO DAILY #90 tab-cap 05/29/20 12/30/20 triamcinolone acetonide 0.5 % 1 applic TOPICAL TID PRN #45 gm 12/13/20 12/30/20 topical cream pantoprazole 40 mg tablet,delayed 40 mg PO DAILY tab 12/25/20 12/30/20 release allopurinol 300 mg tablet 300 mg PO DAILY 12/28/20 12/30/20 atenolol 100 mg tablet 100 mg PO DAILY #180 tab-cap 12/28/20 12/30/20 ruxolitinib 20 mg tablet 20 mg PO BID 12/28/20 12/30/20 Previous Rx's Medication Instructions Recorded sildenafil 50 mg tablet 50 mg PO DAILY #30 tab-cap 06/04/18 varicella-zoster glycoE vacc-AS01B 50 mcg IM ONCE #1 each 05/25/19 adj(PF) 50 mcg/0.5 mL IM susp, kit amlodipine 5 mg tablet 5 mg PO DAILY #90 tab 05/29/20 bumetanide 1 mg tablet 1 mg PO DAILY #90 tab-cap 05/29/20 irbesartan 300 mg tablet 300 mg PO DAILY #90 tab 05/29/20 simvastatin 40 mg tablet 40 mg PO DAILY #90 tab-cap 05/29/20 triamcinolone acetonide 0.5 % 1 applic TOPICAL TID PRN #45 gm 12/13/20 topical cream atenolol 100 mg tablet 100 mg PO DAILY #180 tab-cap 12/28/20 Allergies Allergy/AdvReac Type Severity Reaction Status Date / Time lisinopril Allergy Unknown swelling Verified 12/30/20 11:45 hydrochlorothiazide AdvReac generalized Verified 12/30/20 11:45 edema General Stated Complaint: GI Bleed TIFF: 2 Review of Systems Narrative: Weakness and lightheadedness without syncope. No chest pain. Similar to previous episode of GI bleeding which she was diagnosed with duodenal ulcer. 8 systems reviewed and otherwise negative. [facility] Medical History Acquired hallux limitus of both feet Bunion, right 01/05/20 bilateral bunions (R worse than L), f/u 4 weeks. Hallux valgus with bunions of left foot Hallux valgus with bunions of right foot Hyperlipemia Hypertension Low HDL (under 40) Lung cancer screening declined by patient Peripheral edema Primary osteoarthritis of both feet Surgical History Amputation toe (09/06/20) 09/06/20 2nd toe right foot, osteomyelitis Colonoscopy - IV Sedation (06/25/16) H/O abdominal aortic aneurysm repair (01/01/19) [facility] [place] Vascular knee surgery (08/31/14) pneumothorax Social History (Updated 03/01/19 @ 13:15 by Cristel Peter RN) Smoking/Tobacco Use Status: Former Tobacco Use Quit Date: 01/01/19 Pack-years: 40 Tobacco: How many years used: 40 Smoking risk assessment performed?: Yes Alcohol Intake: current Alcohol Intake frequency: holidays/special occasions only Alcohol type: beer Details: couple of Budweiser cans a day (2-4, 12 oz). Drug use: Current Sobriety Substance use type: does not use and marijuana Pets and animals: Yes Pets and animals: dog(s) Duration: 30-45 minutes/day Frequency: 5-6 times per week Exam Narrative Exam Narrative: GEN: awake, alert, oriented 3. Pleasant, well groomed, interactive. HEAD: Normocephalic, atraumatic ENT: Mucous membranes moist, External ear exam unremarkable EYES: PERRL, EOMI NECK: Full ROM, no NELSON, no menigismus CHEST/RESP: Nontender, clear to auscultation bilateral, no wheeze/rhonchi/rales CARDIOVASCULAR: RRR, no murmur, rub gloria. 2+ Rad pulse bilateral ABDOMEN: Soft, nontender, no mass. +Bowel sounds. Normal rectal tone with dark, black stool that is guaiac positive EXT: Full ROM, no edema, no rash Neuro: Grossly normal neurologic exam, conversant, interactive. Psych: Speech fluent, thoughts congruent, affect normal Course Vital Signs Vital signs: Vital Signs Temperature 36.1 C L 12/30/20 11:41 Pulse 58 L 12/30/20 11:41 Respiratory Rate 18 12/30/20 11:41 Blood Pressure 122/96 H 12/30/20 11:41 Pulse Oximetry 97 12/30/20 11:41 Temperature 36.1 C L 12/30/20 11:41 Temperature Source Skin 12/30/20 11:41 Pulse 58 L 12/30/20 11:41 Respiratory Rate 18 12/30/20 11:41 Respiratory Effort 12/30/20 11:41 Blood Pressure 122/96 H 12/30/20 11:41 Blood Pressure Position Supine 12/30/20 11:41 Pulse Oximetry 97 12/30/20 11:41 Oxygen Delivery Method Room Air 12/30/20 11:41 Oxygen Flow Rate 0 12/30/20 11:41 Pain Level 1 12/30/20 11:41 Critical Care Time Critical Care Time Critical Care Time: Yes Total Critical Care Time: 30 Attestation: Bedside care, review of records, discussion with consultants.
[2020-12-30 12:23] LABS: INR 1.3 (0.9-1.1); Prothrombin Time 12.7 sec (9.3-11.0)
[2020-12-30 12:30] LABS: HGB 6.3 g/dL (13.5-17.5); WBC 113.12 10^3/uL (4.4-10.8)
--- NOTE | 2020-12-30 12:30 | RT.EKG_ITS ---
APPROVED REPORT Exam: Resting ECG Reason for Exam: gi bleed Patient Location: E HR:62 bpm ECG Measurements Heart Rate 62 AXIS MN 221 P 29 QRSd 87 QRS -18 QT 472 T 43 QTc 481 Conclusion Sinus rhythm. Prolonged MN interval. Nonspecific T abnormalities, anterior leads.
[2020-12-30 12:31] LABS: Absolute Basophil Count 2.26 10^3/uL (0.0-0.2); Absolute Eosinophil Count 4.52 10^3/uL (0.0-0.7); Absolute Lymphocyte Count 10.18 10^3/uL (1.2-3.4); Absolute Monocyte Count 11.31 10^3/uL (0.1-0.8); Absolute Neutrophil Count 65.61 10^3/uL (1.2-6.7); Bands % 12; HCT 20.4 % (40.0-50.0)
[2020-12-30 12:32] LABS: ALT 34 U/L (16-63); AST 65 U/L (15-37); Albumin 2.2 g/dL (3.4-5.0); Alkaline Phosphatase 345 U/L (46-116); Anion Gap 10.7 mmol/L (3-11); Anisocytosis 3+; BUN 67 mg/dL (7-18); Bilirubin, Total 0.7 mg/dL (0.2-1.0); CO2 24.3 mmol/L (21.0-32.0); CREATININE 1.3 mg/dL (0.70-1.30); Calcium 7.5 mg/dL (8.5-10.1); Chloride 106 mmol/L (98-107); Diff Comment Manual Differential; Glucose 116 mg/dL (74-106); Hypochromasia 2+; Macrocytosis 1+; Magnesium 1.9 mg/dL (1.8-2.4); Metamyelocytes % 8; Microcytosis 1+; Myelocytes % 7; Polychromasia Present; Promyelocytes % 2; Sodium 141 mmol/L (136-145)
[2020-12-30 12:33] LABS: Poikilocytes 3+; Troponin I < 0.05 ng/mL (<0.06)
[2020-12-30] MEDS: Normal Saline Flush 10 ML SYR IVP (13:32)
--- NOTE | 2020-12-30 16:45 | NUR.NOTE ---
1420 [place] [facility] [place] Blood running at 150ml/hr for transfer - approx 150cc intake. handed off to medic-will return paper work.Nursing Note:
== END 2020-12-30 14:20 | disposition short-term general hospital (02) ==
PROVIDERS: Emergency Provider Emergency Medicine; PCP Nurse Practitioner
DX: K92.2 Gastrointestinal hemorrhage, unspecified (principal); I95.9 Hypotension, unspecified
CPT/HCPCS: 36415; 36430; 80053; 86850; 86900; 86901; 86920; 93005; 96361; 96374; 99291; 83735; 84484; 85025; 85610; 93010; P9016

== ENCOUNTER 2021-01-08 16:05 | Outpatient (CLI) | payer OTHER, SELFPAY ==
[2021-01-08 10:40] LABS: ALT 31 U/L (16-63); AST 46 U/L (15-37); Albumin 2.5 g/dL (3.4-5.0); Alkaline Phosphatase 358 U/L (46-116); Anion Gap 7.4 mmol/L (3-11); BUN 24 mg/dL (7-18); Bilirubin, Total 0.7 mg/dL (0.2-1.0); CO2 27.6 mmol/L (21.0-32.0); Calcium 7.8 mg/dL (8.5-10.1); Chloride 106 mmol/L (98-107); Glucose 88 mg/dL (74-106); Potassium 3.9 mmol/L (3.5-5.1); Sodium 141 mmol/L (136-145); Total Protein 5.4 g/dL (6.4-8.2)
[2021-01-08 10:42] LABS: Abs Immature Grans 9.93 10^3/uL (0.0-0.06); HCT 30.4 % (40.0-50.0); MCH 27.7 pg (27.0-33.0); MCHC 29.6 % (32.0-36.0); MCV 93.5 fL (80-95); MPV 10.9 fL (8.0-11.0); Nucleated RBC 4 %; Platelet Count 157 10^3/uL (130-400); RBC 3.25 10^6/uL (4.36-5.78); RDW 23.9 % (11.8-14.1); RDW-SD 81.7 fL
[2021-01-08 10:48] LABS: Absolute Basophil Count 1.59 10^3/uL (0.0-0.2); Absolute Lymphocyte Count 1.06 10^3/uL (1.2-3.4); Absolute Monocyte Count 5.83 10^3/uL (0.1-0.8); Bands % 16
[2021-01-08 10:49] LABS: Metamyelocytes % 9; Myelocytes % 5
[2021-01-08 10:51] LABS: Anisocytosis 3+; Basophilic Stippling Present; Diff Comment Manual Differential; Hypochromasia 2+; Macrocytosis 2+; Microcytosis 1+; Polychromasia Present
[2021-01-08 10:52] LABS: Poikilocytes 2+
== END 2021-01-08 16:06 | disposition home or self-care (01) ==
LOC: LBO 16:05
PROVIDERS: PCP Nurse Practitioner; Visit Provider Internal Medicine Hematology & Oncology
DX: D47.1 Chronic myeloproliferative disease (principal)
CPT/HCPCS: 36415; 80053; 85025

== ENCOUNTER 2021-01-11 04:41 | Outpatient (CLI) | payer OTHER, SELFPAY ==
[2021-01-11 10:23] LABS: Abs Immature Grans 7.88 10^3/uL (0.0-0.06); HCT 30.2 % (40.0-50.0); MCH 27.7 pg (27.0-33.0); MCHC 29.8 % (32.0-36.0); MCV 92.9 fL (80-95); MPV 11.6 fL (8.0-11.0); Nucleated RBC 4 %; RBC 3.25 10^6/uL (4.36-5.78); RDW 23.4 % (11.8-14.1); RDW-SD 78.9 fL
[2021-01-11 10:37] LABS: ALT 31 U/L (16-63); AST 40 U/L (15-37); Albumin 2.6 g/dL (3.4-5.0); Alkaline Phosphatase 377 U/L (46-116); BUN 26 mg/dL (7-18); Bilirubin, Total 0.7 mg/dL (0.2-1.0); CREATININE 1.1 mg/dL (0.70-1.30); Calcium 8.1 mg/dL (8.5-10.1); Chloride 104 mmol/L (98-107); Glucose 91 mg/dL (74-106); Potassium 3.8 mmol/L (3.5-5.1); Sodium 139 mmol/L (136-145); Total Protein 5.6 g/dL (6.4-8.2)
[2021-01-11 10:42] LABS: Absolute Neutrophil Count 26.57 10^3/uL (1.2-6.7); Bands % 6
[2021-01-11 10:43] LABS: Absolute Basophil Count 0.95 10^3/uL (0.0-0.2); Absolute Eosinophil Count 8.54 10^3/uL (0.0-0.7); Absolute Monocyte Count 2.37 10^3/uL (0.1-0.8)
[2021-01-11 10:45] LABS: Anisocytosis 3+; Diff Comment Manual Differential; Hypochromasia 2+; Macrocytosis 1+; Metamyelocytes % 10; Microcytosis 1+; Myelocytes % 5; Polychromasia Present
[2021-01-11 10:46] LABS: WBC 47.45 10^3/uL (4.4-10.8)
[2021-01-11 10:47] LABS: Platelet Count 184 10^3/uL (130-400); Poikilocytes 2+
== END 2021-01-11 04:42 | disposition home or self-care (01) ==
LOC: LBO 04:41
PROVIDERS: PCP Nurse Practitioner; Visit Provider Internal Medicine Hematology & Oncology
DX: D47.1 Chronic myeloproliferative disease (principal)
CPT/HCPCS: 36415; 80053; 85025

== ENCOUNTER 2021-01-18 04:25 | Outpatient (CLI) | payer OTHER, SELFPAY ==
[2021-01-18 10:43] LABS: Abs Immature Grans 4.92 10^3/uL (0.0-0.06); HCT 31.1 % (40.0-50.0); HGB 8.9 g/dL (13.5-17.5); MCH 25.6 pg (27.0-33.0); MCHC 28.6 % (32.0-36.0); MCV 89.6 fL (80-95); MPV 11.6 fL (8.0-11.0); Platelet Count 257 10^3/uL (130-400); RBC 3.47 10^6/uL (4.36-5.78); RDW 23.4 % (11.8-14.1); RDW-SD 76.4 fL
[2021-01-18 11:07] LABS: Absolute Eosinophil Count 3.88 10^3/uL (0.0-0.7); Absolute Lymphocyte Count 2.09 10^3/uL (1.2-3.4); Absolute Monocyte Count 1.49 10^3/uL (0.1-0.8); Absolute Neutrophil Count 20.61 10^3/uL (1.2-6.7); Bands % 12
[2021-01-18 11:08] LABS: Anisocytosis 3+; Basophilic Stippling Present; Diff Comment Manual Differential; Metamyelocytes % 4; Myelocytes % 1; Nucleated RBC 2 %
[2021-01-18 11:09] LABS: Hypochromasia 2+; Poikilocytes 2+; Polychromasia Present
[2021-01-18 11:13] LABS: WBC 29.87 10^3/uL (4.4-10.8)
[2021-01-18 11:32] LABS: ALT 28 U/L (16-63); AST 36 U/L (15-37); Albumin 2.5 g/dL (3.4-5.0); Alkaline Phosphatase 355 U/L (46-116); Anion Gap 7.3 mmol/L (3-11); BUN 19 mg/dL (7-18); Bilirubin, Total 0.6 mg/dL (0.2-1.0); CO2 26.7 mmol/L (21.0-32.0); Calcium 7.9 mg/dL (8.5-10.1); Chloride 106 mmol/L (98-107); Glucose 90 mg/dL (74-106); Potassium 4.1 mmol/L (3.5-5.1); Sodium 140 mmol/L (136-145); Total Protein 5.3 g/dL (6.4-8.2)
== END 2021-01-18 04:26 | disposition home or self-care (01) ==
LOC: LBO 04:25
PROVIDERS: PCP Nurse Practitioner; Visit Provider Internal Medicine Hematology & Oncology
DX: D47.1 Chronic myeloproliferative disease (principal)
CPT/HCPCS: 36415; 80053; 85025

== ENCOUNTER 2021-01-25 02:48 | Outpatient (CLI) | payer OTHER, SELFPAY ==
[2021-01-25 10:22] LABS: Abs Immature Grans 2.64 10^3/uL (0.0-0.06); HCT 29.5 % (40.0-50.0); HGB 8.6 g/dL (13.5-17.5); MCH 24.7 pg (27.0-33.0); MCHC 29.2 % (32.0-36.0); MCV 84.8 fL (80-95); MPV 10.4 fL (8.0-11.0); RBC 3.48 10^6/uL (4.36-5.78); RDW 23.2 % (11.8-14.1)
[2021-01-25 10:39] LABS: ALT 20 U/L (16-63); AST 33 U/L (15-37); Albumin 2.4 g/dL (3.4-5.0); Alkaline Phosphatase 368 U/L (46-116); Anion Gap 2.2 mmol/L (3-11); BUN 22 mg/dL (7-18); Bilirubin, Total 0.7 mg/dL (0.2-1.0); CO2 26.8 mmol/L (21.0-32.0); CREATININE 1.3 mg/dL (0.70-1.30); Calcium 8.2 mg/dL (8.5-10.1); Chloride 105 mmol/L (98-107); Glucose 88 mg/dL (74-106); Potassium 4.2 mmol/L (3.5-5.1); Sodium 134 mmol/L (136-145); Total Protein 5.7 g/dL (6.4-8.2)
[2021-01-25 10:55] LABS: Absolute Basophil Count 0.25 10^3/uL (0.0-0.2); Absolute Eosinophil Count 1.27 10^3/uL (0.0-0.7); Absolute Lymphocyte Count 0.76 10^3/uL (1.2-3.4); Absolute Monocyte Count 2.29 10^3/uL (0.1-0.8); Absolute Neutrophil Count 19.62 10^3/uL (1.2-6.7); Bands % 5; Platelet Count 303 10^3/uL (130-400)
[2021-01-25 10:56] LABS: Anisocytosis 3+; Diff Comment Manual Differential; Hypochromasia 2+; Metamyelocytes % 3; Myelocytes % 2; Nucleated RBC 0 %; Polychromasia Present
[2021-01-25 10:57] LABS: Poikilocytes 2+
[2021-01-25 10:59] LABS: WBC 25.48 10^3/uL (4.4-10.8)
== END 2021-01-25 02:49 | disposition home or self-care (01) ==
LOC: LBO 02:48
PROVIDERS: PCP Nurse Practitioner; Visit Provider Internal Medicine Hematology & Oncology
DX: D47.1 Chronic myeloproliferative disease (principal)
CPT/HCPCS: 36415; 80053; 85025

== ENCOUNTER 2021-02-01 03:42 | Outpatient (CLI) | payer OTHER, SELFPAY ==
[2021-02-01 11:43] LABS: HCT 29.2 % (40.0-50.0); HGB 8.4 g/dL (13.5-17.5); MCH 23.9 pg (27.0-33.0); MCHC 28.8 % (32.0-36.0); MPV 10.7 fL (8.0-11.0); Nucleated RBC 0 %; Platelet Count 416 10^3/uL (130-400); RBC 3.52 10^6/uL (4.36-5.78); RDW 23.6 % (11.8-14.1); RDW-SD 68.8 fL
[2021-02-01 11:57] LABS: ALT 33 U/L (16-63); AST 41 U/L (15-37); Albumin 2.2 g/dL (3.4-5.0); Alkaline Phosphatase 402 U/L (46-116); BUN 24 mg/dL (7-18); Bilirubin, Total 0.6 mg/dL (0.2-1.0); CREATININE 1.4 mg/dL (0.70-1.30); Calcium 8.1 mg/dL (8.5-10.1); Chloride 103 mmol/L (98-107); Glucose 95 mg/dL (74-106); LDH 199 U/L (85-227); Potassium 3.9 mmol/L (3.5-5.1); Sodium 137 mmol/L (136-145); Total Protein 5.7 g/dL (6.4-8.2); Uric Acid 7.4 mg/dL (3.5-7.2)
[2021-02-01 12:10] LABS: Absolute Neutrophil Count 23.72 10^3/uL (1.2-6.7); Bands % 8; WBC 28.58 10^3/uL (4.4-10.8)
[2021-02-01 12:11] LABS: Absolute Basophil Count 0.29 10^3/uL (0.0-0.2); Absolute Eosinophil Count 1.14 10^3/uL (0.0-0.7); Absolute Lymphocyte Count 1.14 10^3/uL (1.2-3.4); Absolute Monocyte Count 1.14 10^3/uL (0.1-0.8); Diff Comment Manual Differential; Metamyelocytes % 1; Myelocytes % 3
[2021-02-01 12:12] LABS: Anisocytosis 2+; Basophilic Stippling Present; Hypochromasia 2+; Macrocytosis 1+; Microcytosis 1+; Polychromasia Present
[2021-02-01 12:13] LABS: Poikilocytes 2+
== END 2021-02-01 03:43 | disposition home or self-care (01) ==
LOC: LBO 03:42
PROVIDERS: PCP Nurse Practitioner; Visit Provider Internal Medicine Hematology & Oncology
DX: D47.1 Chronic myeloproliferative disease (principal)
CPT/HCPCS: 36415; 80053; 83615; 84550; 85025

== ENCOUNTER 2021-02-08 03:28 | Outpatient (CLI) | payer OTHER, SELFPAY ==
[2021-02-08 11:44] LABS: Abs Immature Grans 3.32 10^3/uL (0.0-0.06); HCT 31.4 % (40.0-50.0); HGB 9.1 g/dL (13.5-17.5); MCH 23.9 pg (27.0-33.0); MCV 82.4 fL (80-95); MPV 10.5 fL (8.0-11.0); Nucleated RBC 0 %; Platelet Count 419 10^3/uL (130-400); RBC 3.81 10^6/uL (4.36-5.78); RDW 24.3 % (11.8-14.1); RDW-SD 70.4 fL
[2021-02-08 12:25] LABS: WBC 28.14 10^3/uL (4.4-10.8)
[2021-02-08 12:28] LABS: Absolute Lymphocyte Count 1.97 10^3/uL (1.2-3.4); Atypical Lymphocytes % 1
[2021-02-08 12:30] LABS: Absolute Monocyte Count 0.84 10^3/uL (0.1-0.8)
[2021-02-08 12:31] LABS: Absolute Eosinophil Count 1.69 10^3/uL (0.0-0.7)
[2021-02-08 12:33] LABS: Anisocytosis 2+; Diff Comment Manual Differential; Metamyelocytes % 2; Myelocytes % 1
[2021-02-08 12:34] LABS: Hypochromasia 2+
[2021-02-08 12:40] LABS: ALT 28 U/L (16-63); AST 32 U/L (15-37); Albumin 2.3 g/dL (3.4-5.0); Alkaline Phosphatase 386 U/L (46-116); Anion Gap 10.9 mmol/L (3-11); BUN 21 mg/dL (7-18); Bilirubin, Total 0.5 mg/dL (0.2-1.0); CO2 25.1 mmol/L (21.0-32.0); CREATININE 1.3 mg/dL (0.70-1.30); Chloride 106 mmol/L (98-107); Glucose 104 mg/dL (74-106); LDH 218 U/L (85-227); Potassium 3.7 mmol/L (3.5-5.1); Sodium 142 mmol/L (136-145); Total Protein 5.4 g/dL (6.4-8.2); Uric Acid 6.5 mg/dL (3.5-7.2)
[2021-02-15 13:08] LABS: Absolute Neutrophil Count 22.79 10^3/uL (1.2-6.7)
== END 2021-02-08 03:29 | disposition home or self-care (01) ==
LOC: LBO 03:28
PROVIDERS: PCP Nurse Practitioner; Visit Provider Internal Medicine Hematology & Oncology
DX: D47.1 Chronic myeloproliferative disease (principal)
CPT/HCPCS: 36415; 80053; 83615; 84550; 85025

== ENCOUNTER 2021-02-15 03:08 | Outpatient (CLI) | payer OTHER, SELFPAY ==
[2021-02-15 11:49] LABS: HCT 31.6 % (40.0-50.0); HGB 9.3 g/dL (13.5-17.5); MCH 24.3 pg (27.0-33.0); MCHC 29.4 % (32.0-36.0); MCV 82.5 fL (80-95); Nucleated RBC 0 %; RBC 3.83 10^6/uL (4.36-5.78); WBC 24.92 10^3/uL (4.4-10.8)
[2021-02-15 12:00] LABS: ALT 25 U/L (16-63); AST 33 U/L (15-37); Albumin 2.2 g/dL (3.4-5.0); Alkaline Phosphatase 312 U/L (46-116); Anion Gap 5.5 mmol/L (3-11); BUN 17 mg/dL (7-18); Bilirubin, Total 0.6 mg/dL (0.2-1.0); CO2 24.5 mmol/L (21.0-32.0); CREATININE 1.2 mg/dL (0.70-1.30); Calcium 7.9 mg/dL (8.5-10.1); Chloride 103 mmol/L (98-107); Glucose 106 mg/dL (74-106); LDH 208 U/L (85-227); Potassium 3.3 mmol/L (3.5-5.1); Sodium 133 mmol/L (136-145); Total Protein 5.5 g/dL (6.4-8.2)
[2021-02-15 12:20] LABS: Absolute Eosinophil Count 1.74 10^3/uL (0.0-0.7); Absolute Lymphocyte Count 1.25 10^3/uL (1.2-3.4); Absolute Monocyte Count 1.25 10^3/uL (0.1-0.8); Absolute Neutrophil Count 20.68 10^3/uL (1.2-6.7); Anisocytosis 3+; Bands % 3; Diff Comment Manual Differential
[2021-02-15 12:21] LABS: Polychromasia Present
[2021-02-15 12:22] LABS: Platelet Count 338 10^3/uL (130-400); Poikilocytes 2+
== END 2021-02-15 03:09 | disposition home or self-care (01) ==
LOC: LBO 03:08
PROVIDERS: PCP Nurse Practitioner; Visit Provider Internal Medicine Hematology & Oncology
DX: D47.1 Chronic myeloproliferative disease (principal)
CPT/HCPCS: 36415; 80053; 83615; 84550; 85025

== ENCOUNTER 2021-02-22 03:11 | Outpatient (CLI) | payer OTHER, SELFPAY ==
[2021-02-22 11:58] LABS: HCT 33.3 % (40.0-50.0); HGB 9.7 g/dL (13.5-17.5); MCH 23.8 pg (27.0-33.0); MCHC 29.1 % (32.0-36.0); MCV 81.6 fL (80-95); MPV 10.1 fL (8.0-11.0); Nucleated RBC 0 %; RBC 4.08 10^6/uL (4.36-5.78); RDW 25.7 % (11.8-14.1); RDW-SD 74.1 fL; WBC 24.69 10^3/uL (4.4-10.8)
[2021-02-22 12:13] LABS: ALT 31 U/L (16-63); AST 30 U/L (15-37); Albumin 2.5 g/dL (3.4-5.0); Alkaline Phosphatase 319 U/L (46-116); Anion Gap 9.6 mmol/L (3-11); BUN 19 mg/dL (7-18); Bilirubin, Total 0.7 mg/dL (0.2-1.0); CO2 25.4 mmol/L (21.0-32.0); CREATININE 1.2 mg/dL (0.70-1.30); Calcium 8.2 mg/dL (8.5-10.1); Chloride 106 mmol/L (98-107); Glucose 103 mg/dL (74-106); LDH 250 U/L (85-227); Potassium 3.7 mmol/L (3.5-5.1); Sodium 141 mmol/L (136-145); Uric Acid 5.9 mg/dL (3.5-7.2)
[2021-02-22 12:15] LABS: Platelet Count 308 10^3/uL (130-400)
[2021-02-22 12:16] LABS: Absolute Basophil Count 0.25 10^3/uL (0.0-0.2); Absolute Eosinophil Count 1.48 10^3/uL (0.0-0.7); Absolute Lymphocyte Count 0.99 10^3/uL (1.2-3.4); Absolute Monocyte Count 2.72 10^3/uL (0.1-0.8); Absolute Neutrophil Count 18.27 10^3/uL (1.2-6.7); Anisocytosis 2+; Bands % 7; Diff Comment Manual Differential; Hypochromasia 2+; Macrocytosis 1+; Metamyelocytes % 2; Microcytosis 1+; Myelocytes % 2; Polychromasia Present
[2021-02-22 12:17] LABS: Poikilocytes 2+
== END 2021-02-22 03:12 | disposition home or self-care (01) ==
LOC: LBO 03:12
PROVIDERS: PCP Nurse Practitioner; Visit Provider Internal Medicine Hematology & Oncology
DX: D47.1 Chronic myeloproliferative disease (principal)
CPT/HCPCS: 36415; 80053; 83615; 84550; 85025

== ENCOUNTER 2021-03-01 01:42 | Outpatient (CLI) | payer OTHER, SELFPAY ==
[2021-03-01 11:56] LABS: HCT 34.5 % (40.0-50.0); MCH 23.9 pg (27.0-33.0); MCV 82.5 fL (80-95); RBC 4.18 10^6/uL (4.36-5.78); RDW 26.5 % (11.8-14.1); RDW-SD 76.8 fL
[2021-03-01 12:07] LABS: ALT 22 U/L (16-63); AST 33 U/L (15-37); Albumin 2.6 g/dL (3.4-5.0); Alkaline Phosphatase 306 U/L (46-116); Anion Gap 9.1 mmol/L (3-11); BUN 18 mg/dL (7-18); Bilirubin, Total 0.8 mg/dL (0.2-1.0); CO2 26.9 mmol/L (21.0-32.0); CREATININE 1.1 mg/dL (0.70-1.30); Calcium 8.5 mg/dL (8.5-10.1); Chloride 104 mmol/L (98-107); Glucose 114 mg/dL (74-106); LDH 266 U/L (85-227); Potassium 3.6 mmol/L (3.5-5.1); Sodium 140 mmol/L (136-145); Total Protein 6.1 g/dL (6.4-8.2); Uric Acid 5.6 mg/dL (3.5-7.2)
[2021-03-01 12:39] LABS: Absolute Basophil Count 0.26 10^3/uL (0.0-0.2); Absolute Eosinophil Count 2.06 10^3/uL (0.0-0.7); Absolute Lymphocyte Count 1.54 10^3/uL (1.2-3.4); Absolute Monocyte Count 2.31 10^3/uL (0.1-0.8); Absolute Neutrophil Count 19.53 10^3/uL (1.2-6.7); Bands % 4
[2021-03-01 12:40] LABS: Anisocytosis 2+; Diff Comment Manual Differential; Microcytosis 1+
== END 2021-03-01 01:43 | disposition home or self-care (01) ==
LOC: LBO 01:42
PROVIDERS: PCP Nurse Practitioner; Visit Provider Internal Medicine Hematology & Oncology
DX: D47.1 Chronic myeloproliferative disease (principal)
CPT/HCPCS: 36415; 80053; 83615; 84550; 85025

== ENCOUNTER 2021-03-08 04:05 | Outpatient (CLI) | payer OTHER, SELFPAY ==
[2021-03-08 12:44] LABS: Abs Immature Grans 4.63 10^3/uL (0.0-0.06); HCT 33.5 % (40.0-50.0); HGB 9.8 g/dL (13.5-17.5); MCH 23.7 pg (27.0-33.0); MCHC 29.3 % (32.0-36.0); MCV 80.9 fL (80-95); RBC 4.14 10^6/uL (4.36-5.78); RDW 26.5 % (11.8-14.1); RDW-SD 76.5 fL
[2021-03-08 12:54] LABS: Absolute Lymphocyte Count 1.24 10^3/uL (1.2-3.4)
[2021-03-08 13:06] LABS: Absolute Basophil Count 0.62 10^3/uL (0.0-0.2); Absolute Eosinophil Count 4.34 10^3/uL (0.0-0.7); Absolute Monocyte Count 3.72 10^3/uL (0.1-0.8); Absolute Neutrophil Count 18.59 10^3/uL (1.2-6.7); Bands % 5; Nucleated RBC 1 %
[2021-03-08 13:08] LABS: Metamyelocytes % 2; Myelocytes % 6; Platelet Count 350 10^3/uL (130-400)
[2021-03-08 13:09] LABS: Anisocytosis 2+; Diff Comment Manual Differential; Hypochromasia 2+; Microcytosis 2+; Poikilocytes 2+; Polychromasia Present
[2021-03-08 13:10] LABS: WBC 30.99 10^3/uL (4.4-10.8)
[2021-03-08 13:45] LABS: ALT 32 U/L (16-63); AST 48 U/L (15-37); Albumin 2.6 g/dL (3.4-5.0); Alkaline Phosphatase 363 U/L (46-116); Anion Gap 8.4 mmol/L (3-11); BUN 17 mg/dL (7-18); Bilirubin, Total 0.8 mg/dL (0.2-1.0); CO2 27.6 mmol/L (21.0-32.0); CREATININE 1.1 mg/dL (0.70-1.30); Calcium 8.1 mg/dL (8.5-10.1); Chloride 105 mmol/L (98-107); Glucose 90 mg/dL (74-106); LDH 334 U/L (85-227); Potassium 3.8 mmol/L (3.5-5.1); Sodium 141 mmol/L (136-145); Total Protein 5.8 g/dL (6.4-8.2); Uric Acid 5.3 mg/dL (3.5-7.2)
== END 2021-03-08 04:06 | disposition home or self-care (01) ==
LOC: LBO 04:05
PROVIDERS: PCP Nurse Practitioner; Visit Provider Internal Medicine Hematology & Oncology
DX: D47.1 Chronic myeloproliferative disease (principal)
CPT/HCPCS: 36415; 80053; 83615; 84550; 85025

== ENCOUNTER 2021-03-15 03:13 | Outpatient (CLI) | payer OTHER, SELFPAY ==
[2021-03-15 11:45] LABS: Absolute Eosinophil Count 2.05 10^3/uL (0.0-0.7); HGB 9.8 g/dL (13.5-17.5); MCH 23.7 pg (27.0-33.0); MCHC 28.8 % (32.0-36.0); MCV 82.1 fL (80-95); MPV 10.5 fL (8.0-11.0); Nucleated RBC 0 %; Platelet Count 353 10^3/uL (130-400); RBC 4.14 10^6/uL (4.36-5.78); RDW-SD 75.7 fL
[2021-03-15 12:09] LABS: ALT 27 U/L (16-63); AST 47 U/L (15-37); Albumin 3.1 g/dL (3.4-5.0); Alkaline Phosphatase 332 U/L (46-116); Anion Gap 6.3 mmol/L (3-11); BUN 20 mg/dL (7-18); Bilirubin, Total 0.6 mg/dL (0.2-1.0); CO2 26.7 mmol/L (21.0-32.0); CREATININE 1.4 mg/dL (0.70-1.30); Calcium 8.3 mg/dL (8.5-10.1); Chloride 107 mmol/L (98-107); Glucose 68 mg/dL (74-106); LDH 397 U/L (85-227); Potassium 4.1 mmol/L (3.5-5.1); Sodium 140 mmol/L (136-145); Total Protein 6.5 g/dL (6.4-8.2); Uric Acid 5.8 mg/dL (3.5-7.2)
[2021-03-15 12:14] LABS: Absolute Lymphocyte Count 2.73 10^3/uL (1.2-3.4); Absolute Monocyte Count 4.43 10^3/uL (0.1-0.8); Absolute Neutrophil Count 22.17 10^3/uL (1.2-6.7); Bands % 8; WBC 34.11 10^3/uL (4.4-10.8)
[2021-03-15 12:15] LABS: Absolute Basophil Count 0.68 10^3/uL (0.0-0.2); Anisocytosis 3+; Basophilic Stippling Present; Diff Comment Manual Differential; Hypochromasia 2+; Macrocytosis 1+; Metamyelocytes % 3; Microcytosis 2+; Myelocytes % 3; Ovalocytes 2+; Polychromasia Present
[2021-03-15 12:16] LABS: Poikilocytes 3+
== END 2021-03-15 03:14 | disposition home or self-care (01) ==
LOC: LBO 03:13
PROVIDERS: PCP Nurse Practitioner; Visit Provider Internal Medicine Hematology & Oncology
DX: D47.1 Chronic myeloproliferative disease (principal)
CPT/HCPCS: 36415; 80053; 83615; 84550; 85025

== ENCOUNTER → 2021-03-20 12:00 | Outpatient (BNVA) | payer MEDICARE, SELFPAY | PROVIDERS: PCP Nurse Practitioner; Referring Provider Nurse Practitioner; Visit Provider Surgery | DX: L02.31 Cutaneous abscess of buttock (principal) | CPT/HCPCS: 10060; 99203; 99214 ==

== ENCOUNTER 2021-03-20 13:10 | Outpatient (REF) | payer OTHER, SELFPAY | END 2021-03-20 13:11 | disposition home or self-care (01) | LOC: LBN 13:10 | PROVIDERS: PCP Nurse Practitioner; Visit Provider Surgery | DX: K61.0 Anal abscess (principal) | CPT/HCPCS: 87077; 87070; 87186; 87205 ==

== ENCOUNTER 2021-03-22 02:42 | Outpatient (CLI) | payer MEDICARE, SELFPAY ==
[2021-03-22 10:38] LABS: HCT 34.2 % (40.0-50.0); HGB 9.9 g/dL (13.5-17.5); MCH 24.1 pg (27.0-33.0); MCHC 28.9 % (32.0-36.0); MCV 83.2 fL (80-95); Nucleated RBC 0 %; RBC 4.11 10^6/uL (4.36-5.78); RDW 25.9 % (11.8-14.1); RDW-SD 77.5 fL
[2021-03-22 10:46] LABS: WBC 38.61 10^3/uL (4.4-10.8)
[2021-03-22 10:50] LABS: ALT 35 U/L (16-63); AST 58 U/L (15-37); Albumin 3.4 g/dL (3.4-5.0); Alkaline Phosphatase 311 U/L (46-116); Anion Gap 5.1 mmol/L (3-11); BUN 25 mg/dL (7-18); Bilirubin, Total 0.7 mg/dL (0.2-1.0); CO2 31.9 mmol/L (21.0-32.0); CREATININE 1.3 mg/dL (0.70-1.30); Calcium 8.8 mg/dL (8.5-10.1); Chloride 107 mmol/L (98-107); Glucose 88 mg/dL (74-106); LDH 465 U/L (85-227); Sodium 144 mmol/L (136-145); Total Protein 6.9 g/dL (6.4-8.2); Uric Acid 6.5 mg/dL (3.5-7.2)
[2021-03-22 10:55] LABS: Absolute Eosinophil Count 1.16 10^3/uL (0.0-0.7); Absolute Lymphocyte Count 3.09 10^3/uL (1.2-3.4); Absolute Monocyte Count 1.93 10^3/uL (0.1-0.8); Absolute Neutrophil Count 28.57 10^3/uL (1.2-6.7); Bands % 17; Diff Comment Manual Differential; Metamyelocytes % 8; Myelocytes % 2
[2021-03-22 10:56] LABS: Anisocytosis 2+; Platelet Count 255 10^3/uL (130-400); Poikilocytes 2+
== END 2021-03-22 02:43 | disposition home or self-care (01) ==
LOC: LBO 02:42
PROVIDERS: PCP Nurse Practitioner; Visit Provider Internal Medicine Hematology & Oncology
DX: D47.1 Chronic myeloproliferative disease (principal)
CPT/HCPCS: 36415; 80053; 83615; 84550; 85025

== ENCOUNTER → 2021-03-23 10:38 | Outpatient (BNVA) | payer MEDICARE, SELFPAY | PROVIDERS: PCP Nurse Practitioner; Referring Provider Nurse Practitioner; Visit Provider Surgery | DX: L02.31 Cutaneous abscess of buttock (principal) | CPT/HCPCS: 99212 ==

== ENCOUNTER 2021-04-05 02:02 | Outpatient (CLI) | payer MEDICARE, SELFPAY ==
[2021-04-05 11:32] LABS: HCT 30.3 % (40.0-50.0); HGB 8.9 g/dL (13.5-17.5); MCH 24.5 pg (27.0-33.0); MCHC 29.4 % (32.0-36.0); MCV 83.2 fL (80-95); RBC 3.64 10^6/uL (4.36-5.78); RDW-SD 76.4 fL
[2021-04-05 11:41] LABS: WBC 40.38 10^3/uL (4.4-10.8)
[2021-04-05 11:46] LABS: Absolute Eosinophil Count 4.44 10^3/uL (0.0-0.7); Absolute Lymphocyte Count 4.04 10^3/uL (1.2-3.4); Absolute Monocyte Count 4.85 10^3/uL (0.1-0.8); Absolute Neutrophil Count 23.02 10^3/uL (1.2-6.7); Anisocytosis 2+; Bands % 18; Diff Comment Manual Differential; Metamyelocytes % 5; Myelocytes % 5; Nucleated RBC 1 %; Platelet Count 144 10^3/uL (130-400)
[2021-04-05 11:47] LABS: Hypochromasia 2+; Microcytosis 1+
[2021-04-05 12:52] LABS: ALT 48 U/L (16-63); AST 72 U/L (15-37); Albumin 3.8 g/dL (3.4-5.0); Alkaline Phosphatase 318 U/L (46-116); Anion Gap 7.9 mmol/L (3-11); BUN 26 mg/dL (7-18); Bilirubin, Total 0.7 mg/dL (0.2-1.0); CO2 29.1 mmol/L (21.0-32.0); CREATININE 1.1 mg/dL (0.70-1.30); Calcium 8.6 mg/dL (8.5-10.1); Chloride 107 mmol/L (98-107); Glucose 71 mg/dL (74-106); LDH 567 U/L (85-227); Potassium 3.9 mmol/L (3.5-5.1); Sodium 144 mmol/L (136-145); Total Protein 6.8 g/dL (6.4-8.2)
== END 2021-04-05 02:03 | disposition home or self-care (01) ==
LOC: LBO 02:02
PROVIDERS: PCP Nurse Practitioner; Visit Provider Internal Medicine Hematology & Oncology
DX: D47.1 Chronic myeloproliferative disease (principal)
CPT/HCPCS: 36415; 80053; 83615; 84550; 85025

== ENCOUNTER 2021-04-12 02:55 | Outpatient (CLI) | payer MEDICARE, SELFPAY ==
[2021-04-12 11:51] LABS: HCT 30.6 % (40.0-50.0); MCH 24.7 pg (27.0-33.0); MCHC 29.4 % (32.0-36.0); MCV 83.8 fL (80-95); Platelet Count 154 10^3/uL (130-400); RBC 3.65 10^6/uL (4.36-5.78); RDW 26.4 % (11.8-14.1); RDW-SD 79.7 fL
[2021-04-12 11:58] LABS: WBC 45.82 10^3/uL (4.4-10.8)
[2021-04-12 12:03] LABS: Absolute Basophil Count 1.37 10^3/uL (0.0-0.2); Absolute Eosinophil Count 2.75 10^3/uL (0.0-0.7); Absolute Lymphocyte Count 5.04 10^3/uL (1.2-3.4); Absolute Monocyte Count 4.58 10^3/uL (0.1-0.8); Absolute Neutrophil Count 26.58 10^3/uL (1.2-6.7); Anisocytosis 2+; Bands % 22; Diff Comment Manual Differential; Metamyelocytes % 7; Myelocytes % 5; Nucleated RBC 7 %; Polychromasia Present
[2021-04-12 12:52] LABS: ALT 45 U/L (16-63); AST 70 U/L (15-37); Albumin 3.9 g/dL (3.4-5.0); Alkaline Phosphatase 333 U/L (46-116); Anion Gap 6.1 mmol/L (3-11); BUN 26 mg/dL (7-18); Bilirubin, Total 0.7 mg/dL (0.2-1.0); CO2 30.9 mmol/L (21.0-32.0); CREATININE 1.1 mg/dL (0.70-1.30); Calcium 8.8 mg/dL (8.5-10.1); Chloride 106 mmol/L (98-107); Glucose 88 mg/dL (74-106); LDH 630 U/L (85-227); Potassium 3.9 mmol/L (3.5-5.1); Sodium 143 mmol/L (136-145); Total Protein 6.9 g/dL (6.4-8.2); Uric Acid 5.8 mg/dL (3.5-7.2)
== END 2021-04-12 02:56 | disposition home or self-care (01) ==
LOC: LBO 02:56
PROVIDERS: PCP Nurse Practitioner; Visit Provider Internal Medicine Hematology & Oncology
DX: D47.1 Chronic myeloproliferative disease (principal)
CPT/HCPCS: 36415; 80053; 83615; 84550; 85025

== ENCOUNTER 2021-04-19 02:26 | Outpatient (CLI) | payer MEDICARE, SELFPAY ==
[2021-04-19 09:37] LABS: Abs Immature Grans 14.17 10^3/uL (0.0-0.06); HCT 30.5 % (40.0-50.0); HGB 8.8 g/dL (13.5-17.5); MCH 24.9 pg (27.0-33.0); MCHC 28.9 % (32.0-36.0); MCV 86.2 fL (80-95); Platelet Count 142 10^3/uL (130-400); RBC 3.54 10^6/uL (4.36-5.78); RDW 26.4 % (11.8-14.1); RDW-SD 80.5 fL
[2021-04-19 09:50] LABS: WBC 52.45 10^3/uL (4.4-10.8)
[2021-04-19 10:23] LABS: Absolute Basophil Count 0.52 10^3/uL (0.0-0.2); Absolute Lymphocyte Count 5.77 10^3/uL (1.2-3.4); Absolute Monocyte Count 7.87 10^3/uL (0.1-0.8); Bands % 10
[2021-04-19 10:24] LABS: Anisocytosis 3+; Basophilic Stippling Present; Diff Comment Manual Differential; Hypochromasia 2+; Metamyelocytes % 10; Myelocytes % 6; Nucleated RBC 7 %; Polychromasia Present
[2021-04-19 10:25] LABS: Poikilocytes 2+
[2021-04-19 13:24] LABS: Alkaline Phosphatase 346 U/L (46-116); BUN 25 mg/dL (7-18); Bilirubin, Total 0.7 mg/dL (0.2-1.0); CREATININE 1.1 mg/dL (0.70-1.30); Calcium 8.6 mg/dL (8.5-10.1); Glucose 98 mg/dL (74-106); Uric Acid 6.7 mg/dL (3.5-7.2)
[2021-04-19 13:25] LABS: ALT 38 U/L (16-63); AST 59 U/L (15-37); Anion Gap 8.8 mmol/L (3-11); CO2 28.2 mmol/L (21.0-32.0); Chloride 106 mmol/L (98-107); LDH 675 U/L (85-227); Sodium 143 mmol/L (136-145)
== END 2021-04-19 02:27 | disposition home or self-care (01) ==
LOC: LBO 02:26
PROVIDERS: PCP Nurse Practitioner; Visit Provider Internal Medicine Hematology & Oncology
DX: D47.1 Chronic myeloproliferative disease (principal)
CPT/HCPCS: 36415; 80053; 83615; 84550; 85025

== ENCOUNTER 2021-04-26 02:16 | Outpatient (CLI) | payer MEDICARE, SELFPAY ==
[2021-04-26 09:07] LABS: MCV 86.1 fL (80-95); Nucleated RBC 2 %; Platelet Count 127 10^3/uL (130-400); RDW 25.8 % (11.8-14.1); RDW-SD 78.4 fL
[2021-04-26 09:14] LABS: WBC 48.85 10^3/uL (4.4-10.8)
[2021-04-26 09:29] LABS: Absolute Eosinophil Count 1.47 10^3/uL (0.0-0.7); Absolute Lymphocyte Count 5.86 10^3/uL (1.2-3.4); Absolute Monocyte Count 3.91 10^3/uL (0.1-0.8); Absolute Neutrophil Count 28.82 10^3/uL (1.2-6.7); Atypical Lymphocytes % 2; Bands % 19; Metamyelocytes % 16; Myelocytes % 2
[2021-04-26 09:30] LABS: Diff Comment Manual Differential; Hypochromasia 1+
[2021-04-26 09:33] LABS: ALT 35 U/L (16-63); AST 56 U/L (15-37); Albumin 3.8 g/dL (3.4-5.0); Alkaline Phosphatase 312 U/L (46-116); Anion Gap 8.6 mmol/L (3-11); BUN 27 mg/dL (7-18); Bilirubin, Total 0.6 mg/dL (0.2-1.0); CO2 28.4 mmol/L (21.0-32.0); CREATININE 1.1 mg/dL (0.70-1.30); Calcium 8.7 mg/dL (8.5-10.1); Chloride 108 mmol/L (98-107); Glucose 91 mg/dL (74-106); LDH 600 U/L (85-227); Potassium 4.2 mmol/L (3.5-5.1); Sodium 145 mmol/L (136-145); Total Protein 7.2 g/dL (6.4-8.2); Uric Acid 6.1 mg/dL (3.5-7.2)
== END 2021-04-26 02:17 | disposition home or self-care (01) ==
LOC: LBO 02:16
PROVIDERS: PCP Nurse Practitioner; Visit Provider Internal Medicine Hematology & Oncology
DX: D47.1 Chronic myeloproliferative disease (principal)
CPT/HCPCS: 36415; 80053; 83615; 84550; 85025

== ENCOUNTER 2021-05-04 02:55 | Outpatient (CLI) | payer MEDICARE, SELFPAY ==
[2021-05-04 13:40] LABS: HCT 29.8 % (40.0-50.0); HGB 8.8 g/dL (13.5-17.5); MCH 25.6 pg (27.0-33.0); MCHC 29.5 % (32.0-36.0); MCV 86.6 fL (80-95); Nucleated RBC 3 %; Platelet Count 115 10^3/uL (130-400); RBC 3.44 10^6/uL (4.36-5.78); RDW 25.2 % (11.8-14.1)
[2021-05-04 13:50] LABS: WBC 46.45 10^3/uL (4.4-10.8)
[2021-05-04 13:53] LABS: ALT 48 U/L (16-63); AST 74 U/L (15-37); Albumin 3.9 g/dL (3.4-5.0); Alkaline Phosphatase 320 U/L (46-116); Anion Gap 7.5 mmol/L (3-11); BUN 27 mg/dL (7-18); Bilirubin, Total 0.7 mg/dL (0.2-1.0); CO2 29.5 mmol/L (21.0-32.0); CREATININE 1.2 mg/dL (0.70-1.30); Calcium 8.7 mg/dL (8.5-10.1); Chloride 104 mmol/L (98-107); Glucose 95 mg/dL (74-106); LDH 652 U/L (85-227); Sodium 141 mmol/L (136-145); Uric Acid 5.7 mg/dL (3.5-7.2)
[2021-05-04 14:00] LABS: Absolute Eosinophil Count 1.86 10^3/uL (0.0-0.7); Absolute Lymphocyte Count 5.11 10^3/uL (1.2-3.4); Absolute Monocyte Count 4.65 10^3/uL (0.1-0.8); Absolute Neutrophil Count 23.69 10^3/uL (1.2-6.7); Bands % 12; Metamyelocytes % 7; Myelocytes % 17
[2021-05-04 14:01] LABS: Anisocytosis 3+; Diff Comment Manual Differential; Hypochromasia 1+; Polychromasia Present
[2021-05-04 14:02] LABS: Poikilocytes 2+
== END 2021-05-04 02:56 | disposition home or self-care (01) ==
LOC: LBO 02:55
PROVIDERS: PCP Nurse Practitioner; Visit Provider Internal Medicine Hematology & Oncology
DX: D47.1 Chronic myeloproliferative disease (principal)
CPT/HCPCS: 36415; 80053; 83615; 84550; 85025

== ENCOUNTER 2021-05-10 02:15 | Outpatient (CLI) | payer MEDICARE, SELFPAY ==
[2021-05-10 10:58] LABS: HCT 31.2 % (40.0-50.0); HGB 9.2 g/dL (13.5-17.5); MCH 25.6 pg (27.0-33.0); MCHC 29.5 % (32.0-36.0); MCV 86.7 fL (80-95); RDW 25.2 % (11.8-14.1); RDW-SD 77.2 fL
[2021-05-10 11:04] LABS: WBC 50.77 10^3/uL (4.4-10.8)
[2021-05-10 11:11] LABS: Absolute Basophil Count 1.52 10^3/uL (0.0-0.2); Absolute Eosinophil Count 3.55 10^3/uL (0.0-0.7); Absolute Lymphocyte Count 3.55 10^3/uL (1.2-3.4); Absolute Monocyte Count 3.05 10^3/uL (0.1-0.8); Absolute Neutrophil Count 31.48 10^3/uL (1.2-6.7); Bands % 27
[2021-05-10 11:12] LABS: Anisocytosis 2+; Diff Comment Manual Differential; Hypochromasia 1+; Metamyelocytes % 9; Myelocytes % 5; Nucleated RBC 4 %; Poikilocytes 2+; Polychromasia Present; Promyelocytes % 1
[2021-05-10 11:13] LABS: Platelet Count 132 10^3/uL (130-400)
[2021-05-10 11:16] LABS: ALT 38 U/L (16-63); AST 63 U/L (15-37); Albumin 3.9 g/dL (3.4-5.0); Alkaline Phosphatase 320 U/L (46-116); Anion Gap 5.6 mmol/L (3-11); BUN 30 mg/dL (7-18); Bilirubin, Total 0.6 mg/dL (0.2-1.0); CO2 30.4 mmol/L (21.0-32.0); CREATININE 1.2 mg/dL (0.70-1.30); Calcium 8.6 mg/dL (8.5-10.1); Chloride 103 mmol/L (98-107); Glucose 93 mg/dL (74-106); LDH 660 U/L (85-227); Sodium 139 mmol/L (136-145); Total Protein 7.2 g/dL (6.4-8.2); Uric Acid 5.7 mg/dL (3.5-7.2)
== END 2021-05-10 02:16 | disposition home or self-care (01) ==
LOC: LBO 02:15
PROVIDERS: PCP Nurse Practitioner; Visit Provider Internal Medicine Hematology & Oncology
DX: D47.1 Chronic myeloproliferative disease (principal)
CPT/HCPCS: 36415; 80053; 83615; 84550; 85025

== ENCOUNTER 2021-05-24 02:22 | Outpatient (CLI) | payer MEDICARE, SELFPAY ==
[2021-05-24 09:00] LABS: MCH 25.4 pg (27.0-33.0); MCV 87.3 fL (80-95); Nucleated RBC 2 %; RBC 3.55 10^6/uL (4.36-5.78); RDW 23.2 % (11.8-14.1); RDW-SD 71.4 fL
[2021-05-24 09:14] LABS: WBC 46.04 10^3/uL (4.4-10.8)
[2021-05-24 09:17] LABS: ALT 28 U/L (16-63); AST 44 U/L (15-37); Absolute Basophil Count 0.92 10^3/uL (0.0-0.2); Absolute Eosinophil Count 0.92 10^3/uL (0.0-0.7); Absolute Lymphocyte Count 3.22 10^3/uL (1.2-3.4); Absolute Neutrophil Count 31.31 10^3/uL (1.2-6.7); Albumin 3.5 g/dL (3.4-5.0); Alkaline Phosphatase 274 U/L (46-116); Anion Gap 6.5 mmol/L (3-11); Anisocytosis 2+; BUN 26 mg/dL (7-18); Bands % 24; Bilirubin, Total 0.6 mg/dL (0.2-1.0); CO2 29.5 mmol/L (21.0-32.0); CREATININE 1.2 mg/dL (0.70-1.30); Calcium 8.4 mg/dL (8.5-10.1); Chloride 104 mmol/L (98-107); Diff Comment Manual Differential; Glucose 97 mg/dL (74-106); Hypochromasia 1+; LDH 555 U/L (85-227); Metamyelocytes % 10; Myelocytes % 1; Potassium 4.4 mmol/L (3.5-5.1); Sodium 140 mmol/L (136-145); Total Protein 6.8 g/dL (6.4-8.2); Uric Acid 5.8 mg/dL (3.5-7.2)
[2021-05-24 09:18] LABS: Platelet Count 145 10^3/uL (130-400)
== END 2021-05-24 02:23 | disposition home or self-care (01) ==
LOC: LBO 02:22
PROVIDERS: PCP Nurse Practitioner; Visit Provider Internal Medicine Hematology & Oncology
DX: D47.1 Chronic myeloproliferative disease (principal)
CPT/HCPCS: 36415; 80053; 83615; 84550; 85025

== ENCOUNTER 2021-05-30 03:00 | Outpatient (CLI) | payer MEDICARE, SELFPAY ==
[2021-05-30 14:04] LABS: HCT 33.6 % (40.0-50.0); HGB 9.9 g/dL (13.5-17.5); MCH 25.7 pg (27.0-33.0); MCHC 29.5 % (32.0-36.0); MCV 87.3 fL (80-95); Nucleated RBC 3 %; RBC 3.85 10^6/uL (4.36-5.78); RDW 22.9 % (11.8-14.1); RDW-SD 71.6 fL
[2021-05-30 14:16] LABS: Absolute Basophil Count 0.39 10^3/uL (0.0-0.2); Absolute Lymphocyte Count 3.53 10^3/uL (1.2-3.4); Absolute Monocyte Count 1.18 10^3/uL (0.1-0.8); Absolute Neutrophil Count 27.83 10^3/uL (1.2-6.7); Bands % 19; Diff Comment Manual Differential; Metamyelocytes % 9; Myelocytes % 7; Platelet Count 199 10^3/uL (130-400)
[2021-05-30 14:17] LABS: Anisocytosis 2+; Hypochromasia 1+; Poikilocytes 2+; Polychromasia Present
[2021-05-30 14:19] LABS: ALT 31 U/L (16-63); AST 49 U/L (15-37); Albumin 3.8 g/dL (3.4-5.0); Alkaline Phosphatase 271 U/L (46-116); Anion Gap 6.3 mmol/L (3-11); BUN 25 mg/dL (7-18); Bilirubin, Total 0.7 mg/dL (0.2-1.0); CO2 28.7 mmol/L (21.0-32.0); CREATININE 1.1 mg/dL (0.70-1.30); Calcium 8.5 mg/dL (8.5-10.1); Chloride 105 mmol/L (98-107); Glucose 77 mg/dL (74-106); LDH 668 U/L (85-227); Potassium 4.3 mmol/L (3.5-5.1); Sodium 140 mmol/L (136-145); Total Protein 7.5 g/dL (6.4-8.2); Uric Acid 6.3 mg/dL (3.5-7.2)
== END 2021-05-30 03:01 | disposition home or self-care (01) ==
LOC: LBO 03:00
PROVIDERS: PCP Nurse Practitioner; Visit Provider Internal Medicine Hematology & Oncology
DX: D47.1 Chronic myeloproliferative disease (principal); R16.1 Splenomegaly, not elsewhere classified
CPT/HCPCS: 36415; 80053; 83615; 84550; 85025

== ENCOUNTER 2021-05-31 03:33 | Outpatient (CLI) | payer MEDICARE, SELFPAY ==
[2021-05-31 14:19] LABS: HCT 31.3 % (40.0-50.0); HGB 9.1 g/dL (13.5-17.5); MCH 25.5 pg (27.0-33.0); MCHC 29.1 % (32.0-36.0); MCV 87.7 fL (80-95); Nucleated RBC 2 %; RBC 3.57 10^6/uL (4.36-5.78); RDW 22.5 % (11.8-14.1); RDW-SD 69.6 fL; WBC 24.76 10^3/uL (4.4-10.8)
[2021-05-31 14:30] LABS: Absolute Lymphocyte Count 0.74 10^3/uL (1.2-3.4); Absolute Monocyte Count 0.74 10^3/uL (0.1-0.8); Absolute Neutrophil Count 21.05 10^3/uL (1.2-6.7); Bands % 21
[2021-05-31 14:31] LABS: ALT 23 U/L (16-63); AST 42 U/L (15-37); Albumin 3.5 g/dL (3.4-5.0); Alkaline Phosphatase 264 U/L (46-116); Anion Gap 9.3 mmol/L (3-11); BUN 29 mg/dL (7-18); Bilirubin, Total 0.5 mg/dL (0.2-1.0); CO2 25.7 mmol/L (21.0-32.0); CREATININE 1.1 mg/dL (0.70-1.30); Calcium 8.3 mg/dL (8.5-10.1); Chloride 106 mmol/L (98-107); Diff Comment Manual Differential; Glucose 115 mg/dL (74-106); LDH 551 U/L (85-227); Metamyelocytes % 3; Myelocytes % 2; Platelet Count 168 10^3/uL (130-400); Potassium 4.1 mmol/L (3.5-5.1); RBC Morphology Normal; Sodium 141 mmol/L (136-145); Total Protein 6.9 g/dL (6.4-8.2); Uric Acid 6.1 mg/dL (3.5-7.2)
== END 2021-05-31 03:34 | disposition home or self-care (01) ==
LOC: LBO 03:33
PROVIDERS: PCP Nurse Practitioner; Visit Provider Internal Medicine Hematology & Oncology
DX: D47.1 Chronic myeloproliferative disease (principal); R16.1 Splenomegaly, not elsewhere classified
CPT/HCPCS: 36415; 80053; 83615; 84550; 85025

== ENCOUNTER 2021-06-04 04:26 | Outpatient (CLI) | payer MEDICARE, SELFPAY ==
[2021-06-04 10:13] LABS: HCT 33.8 % (40.0-50.0); HGB 9.8 g/dL (13.5-17.5); MCH 25.3 pg (27.0-33.0); MCV 87.1 fL (80-95); RBC 3.88 10^6/uL (4.36-5.78); RDW-SD 68.1 fL; WBC 12.26 10^3/uL (4.4-10.8)
[2021-06-04 10:33] LABS: ALT 38 U/L (16-63); AST 44 U/L (15-37); Albumin 3.9 g/dL (3.4-5.0); Alkaline Phosphatase 289 U/L (46-116); Anion Gap 6.1 mmol/L (3-11); BUN 29 mg/dL (7-18); Bilirubin, Total 0.6 mg/dL (0.2-1.0); CO2 28.9 mmol/L (21.0-32.0); Chloride 104 mmol/L (98-107); Glucose 104 mg/dL (74-106); LDH 425 U/L (85-227); Potassium 4.2 mmol/L (3.5-5.1); Sodium 139 mmol/L (136-145); Total Protein 7.5 g/dL (6.4-8.2); Uric Acid 5.6 mg/dL (3.5-7.2)
[2021-06-04 10:43] LABS: Absolute Basophil Count 0.12 10^3/uL (0.0-0.2); Absolute Eosinophil Count 0.37 10^3/uL (0.0-0.7); Absolute Lymphocyte Count 0.61 10^3/uL (1.2-3.4); Absolute Monocyte Count 0.61 10^3/uL (0.1-0.8); Absolute Neutrophil Count 9.81 10^3/uL (1.2-6.7); Bands % 5; Nucleated RBC 0 %
[2021-06-04 10:44] LABS: Anisocytosis 3+; Basophilic Stippling Present; Diff Comment Manual Differential; Metamyelocytes % 2; Myelocytes % 4; Polychromasia Present
[2021-06-04 10:45] LABS: Poikilocytes 2+
== END 2021-06-04 04:27 | disposition home or self-care (01) ==
LOC: LBO 04:26
PROVIDERS: PCP Nurse Practitioner; Visit Provider Radiology Radiation Oncology
DX: D47.1 Chronic myeloproliferative disease (principal); R16.1 Splenomegaly, not elsewhere classified
CPT/HCPCS: 36415; 80053; 83615; 84550; 85025

== ENCOUNTER 2021-06-05 02:56 | Outpatient (CLI) | payer MEDICARE, SELFPAY ==
[2021-06-05 10:20] LABS: HCT 33.9 % (40.0-50.0); HGB 10.1 g/dL (13.5-17.5); MCH 25.7 pg (27.0-33.0); MCHC 29.8 % (32.0-36.0); MCV 86.3 fL (80-95); Nucleated RBC 1 %; RBC 3.93 10^6/uL (4.36-5.78); RDW 22.2 % (11.8-14.1); RDW-SD 68.3 fL; WBC 8.71 10^3/uL (4.4-10.8)
[2021-06-05 10:33] LABS: ALT 38 U/L (16-63); AST 41 U/L (15-37); Albumin 3.9 g/dL (3.4-5.0); Alkaline Phosphatase 265 U/L (46-116); Anion Gap 8.3 mmol/L (3-11); BUN 31 mg/dL (7-18); Bilirubin, Total 0.6 mg/dL (0.2-1.0); CO2 28.7 mmol/L (21.0-32.0); Chloride 103 mmol/L (98-107); Glucose 109 mg/dL (74-106); LDH 426 U/L (85-227); Potassium 4.3 mmol/L (3.5-5.1); Sodium 140 mmol/L (136-145); Total Protein 7.6 g/dL (6.4-8.2); Uric Acid 5.9 mg/dL (3.5-7.2)
[2021-06-05 10:46] LABS: Absolute Basophil Count 0.35 10^3/uL (0.0-0.2); Absolute Eosinophil Count 0.87 10^3/uL (0.0-0.7); Absolute Lymphocyte Count 0.26 10^3/uL (1.2-3.4); Absolute Monocyte Count 0.61 10^3/uL (0.1-0.8); Absolute Neutrophil Count 5.92 10^3/uL (1.2-6.7); Anisocytosis 3+; Bands % 11; Diff Comment Manual Differential; Metamyelocytes % 5; Myelocytes % 3
[2021-06-05 10:47] LABS: Polychromasia Present
[2021-06-05 10:48] LABS: Poikilocytes 2+
[2021-06-05 14:39] LABS: Platelet Count 223 10^3/uL (130-400)
== END 2021-06-05 02:57 | disposition home or self-care (01) ==
LOC: LBO 02:56
PROVIDERS: PCP Nurse Practitioner; Visit Provider Internal Medicine Hematology & Oncology
DX: D47.1 Chronic myeloproliferative disease (principal); R16.1 Splenomegaly, not elsewhere classified; D75.81 Myelofibrosis
CPT/HCPCS: 36415; 80053; 83615; 84550; 85025

== ENCOUNTER 2021-06-06 02:40 | Outpatient (CLI) | payer MEDICARE, SELFPAY ==
[2021-06-06 10:33] LABS: HCT 33.5 % (40.0-50.0); HGB 9.8 g/dL (13.5-17.5); MCH 25.1 pg (27.0-33.0); MCHC 29.3 % (32.0-36.0); MCV 85.9 fL (80-95); Nucleated RBC 1 %; RDW 21.7 % (11.8-14.1); RDW-SD 66.4 fL; WBC 4.91 10^3/uL (4.4-10.8)
[2021-06-06 10:46] LABS: ALT 30 U/L (16-63); AST 34 U/L (15-37); Albumin 3.8 g/dL (3.4-5.0); Alkaline Phosphatase 244 U/L (46-116); Anion Gap 8.4 mmol/L (3-11); BUN 28 mg/dL (7-18); Bilirubin, Total 0.6 mg/dL (0.2-1.0); CO2 28.6 mmol/L (21.0-32.0); Chloride 103 mmol/L (98-107); Glucose 97 mg/dL (74-106); LDH 358 U/L (85-227); Potassium 4.4 mmol/L (3.5-5.1); Sodium 140 mmol/L (136-145); Total Protein 7.4 g/dL (6.4-8.2); Uric Acid 6.2 mg/dL (3.5-7.2)
[2021-06-06 10:52] LABS: Absolute Lymphocyte Count 0.54 10^3/uL (1.2-3.4); Absolute Monocyte Count 0.39 10^3/uL (0.1-0.8); Absolute Neutrophil Count 3.24 10^3/uL (1.2-6.7); Atypical Lymphocytes % 1; Bands % 9; Platelet Count 164 10^3/uL (130-400)
[2021-06-06 10:53] LABS: Absolute Basophil Count 0.25 10^3/uL (0.0-0.2); Absolute Eosinophil Count 0.34 10^3/uL (0.0-0.7); Anisocytosis 2+; Diff Comment Manual Differential; Metamyelocytes % 3; Poikilocytes 2+
== END 2021-06-06 02:41 | disposition home or self-care (01) ==
LOC: LBO 02:40
PROVIDERS: PCP Nurse Practitioner; Visit Provider Internal Medicine Hematology & Oncology
DX: D47.1 Chronic myeloproliferative disease (principal)
CPT/HCPCS: 36415; 80053; 83615; 84550; 85025

== ENCOUNTER 2021-06-11 02:42 | Outpatient (CLI) | payer MEDICARE, SELFPAY ==
[2021-06-11 10:12] LABS: HCT 31.9 % (40.0-50.0); HGB 9.6 g/dL (13.5-17.5); MCH 25.3 pg (27.0-33.0); MCHC 30.1 % (32.0-36.0); MCV 84.2 fL (80-95); Platelet Count 108 10^3/uL (130-400); RBC 3.79 10^6/uL (4.36-5.78); RDW 21.1 % (11.8-14.1); RDW-SD 63.7 fL; WBC 2.67 10^3/uL (4.4-10.8)
[2021-06-11 10:22] LABS: ALT 40 U/L (16-63); AST 38 U/L (15-37); Alkaline Phosphatase 256 U/L (46-116); Anion Gap 6.8 mmol/L (3-11); BUN 31 mg/dL (7-18); Bilirubin, Total 0.6 mg/dL (0.2-1.0); CO2 30.2 mmol/L (21.0-32.0); CREATININE 1.1 mg/dL (0.70-1.30); Calcium 8.7 mg/dL (8.5-10.1); Chloride 106 mmol/L (98-107); Glucose 121 mg/dL (74-106); LDH 229 U/L (85-227); Potassium 4.1 mmol/L (3.5-5.1); Sodium 143 mmol/L (136-145); Total Protein 7.3 g/dL (6.4-8.2)
[2021-06-11 10:27] LABS: Absolute Basophil Count 0.08 10^3/uL (0.0-0.2); Absolute Eosinophil Count 0.08 10^3/uL (0.0-0.7); Absolute Lymphocyte Count 0.27 10^3/uL (1.2-3.4); Absolute Monocyte Count 0.29 10^3/uL (0.1-0.8); Absolute Neutrophil Count 1.84 10^3/uL (1.2-6.7); Anisocytosis 2+; Bands % 10; Diff Comment Manual Differential; Hypochromasia 1+; Metamyelocytes % 2; Myelocytes % 2; Nucleated RBC 0 %
[2021-06-11 10:28] LABS: Poikilocytes 2+
[2021-06-11 11:36] LABS: Uric Acid 5.4 mg/dL (3.5-7.2)
== END 2021-06-11 02:43 | disposition home or self-care (01) ==
PROVIDERS: PCP Nurse Practitioner; Visit Provider Internal Medicine Hematology & Oncology
DX: D47.1 Chronic myeloproliferative disease (principal)
CPT/HCPCS: 36415; 80053; 83615; 84550; 85025

== ENCOUNTER 2021-06-19 09:33 | Outpatient (CLI) | payer MEDICARE, SELFPAY ==
[2021-06-19 12:26] LABS: Abs Immature Grans 0.23 10^3/uL (0.0-0.06); HCT 29.4 % (40.0-50.0); HGB 8.9 g/dL (13.5-17.5); MCH 24.9 pg (27.0-33.0); MCHC 30.3 % (32.0-36.0); MCV 82.4 fL (80-95); Nucleated RBC 0 %; RBC 3.57 10^6/uL (4.36-5.78); RDW-SD 58.9 fL; WBC 2.85 10^3/uL (4.4-10.8)
[2021-06-19 13:16] LABS: Absolute Basophil Count 0.03 10^3/uL (0.0-0.2); Absolute Eosinophil Count 0.23 10^3/uL (0.0-0.7); Absolute Lymphocyte Count 0.48 10^3/uL (1.2-3.4); Absolute Monocyte Count 0.29 10^3/uL (0.1-0.8); Absolute Neutrophil Count 1.71 10^3/uL (1.2-6.7); Atypical Lymphocytes % 1; Bands % 1
[2021-06-19 13:18] LABS: Diff Comment Manual Differential; Metamyelocytes % 3; Myelocytes % 1; Polychromasia Present
[2021-06-19 13:19] LABS: Platelet Count 28 10^3/uL (130-400)
[2021-06-19 13:20] LABS: ALT 42 U/L (16-63); AST 47 U/L (15-37); Albumin 4.2 g/dL (3.4-5.0); Alkaline Phosphatase 225 U/L (46-116); Anion Gap 7.6 mmol/L (3-11); BUN 24 mg/dL (7-18); Bilirubin, Total 0.8 mg/dL (0.2-1.0); CO2 29.4 mmol/L (21.0-32.0); CREATININE 1.2 mg/dL (0.70-1.30); Calcium 8.9 mg/dL (8.5-10.1); Chloride 105 mmol/L (98-107); Glucose 100 mg/dL (74-106); LDH 230 U/L (85-227); Potassium 4.4 mmol/L (3.5-5.1); Sodium 142 mmol/L (136-145); Total Protein 7.4 g/dL (6.4-8.2); Uric Acid 5.1 mg/dL (3.5-7.2)
== END 2021-06-19 09:34 | disposition home or self-care (01) ==
LOC: LBO 09:35
PROVIDERS: PCP Nurse Practitioner; Visit Provider Internal Medicine Hematology & Oncology
DX: D47.1 Chronic myeloproliferative disease (principal)
CPT/HCPCS: 36415; 80053; 83615; 84550; 85025

== ENCOUNTER 2021-07-02 02:47 | Outpatient (RCR) | payer MEDICARE, SELFPAY ==
[2021-06-21 08:29] LABS: Abs Immature Grans 0.19 10^3/uL (0.0-0.06); HCT 26.4 % (40.0-50.0); MCH 24.9 pg (27.0-33.0); MCHC 30.3 % (32.0-36.0); MCV 82.2 fL (80-95); RBC 3.21 10^6/uL (4.36-5.78); RDW 19.9 % (11.8-14.1); RDW-SD 58.4 fL; WBC 2.43 10^3/uL (4.4-10.8)
[2021-06-21 08:40] LABS: Platelet Count 28 10^3/uL (130-400)
[2021-06-21 08:52] LABS: Absolute Lymphocyte Count 0.44 10^3/uL (1.2-3.4); Absolute Monocyte Count 0.29 10^3/uL (0.1-0.8); Absolute Neutrophil Count 1.51 10^3/uL (1.2-6.7); Bands % 4; Metamyelocytes % 3; Myelocytes % 1; Nucleated RBC 0 %
[2021-06-21 08:53] LABS: Anisocytosis 1+; Diff Comment Manual Differential; Hypochromasia 1+; Poikilocytes 1+
[2021-06-26 08:28] LABS: HCT 24.9 % (40.0-50.0); HGB 7.7 g/dL (13.5-17.5); MCH 25.5 pg (27.0-33.0); MCHC 30.9 % (32.0-36.0); MCV 82.5 fL (80-95); RBC 3.02 10^6/uL (4.36-5.78); RDW 20.2 % (11.8-14.1); RDW-SD 59.3 fL; WBC 2.87 10^3/uL (4.4-10.8)
[2021-06-26 08:46] LABS: Absolute Basophil Count 0.03 10^3/uL (0.0-0.2); Absolute Eosinophil Count 0.03 10^3/uL (0.0-0.7); Absolute Lymphocyte Count 0.37 10^3/uL (1.2-3.4); Absolute Monocyte Count 0.32 10^3/uL (0.1-0.8); Absolute Neutrophil Count 1.98 10^3/uL (1.2-6.7); Atypical Lymphocytes % 1; Bands % 6; Nucleated RBC 3 %; Platelet Count 41 10^3/uL (130-400)
[2021-06-26 08:47] LABS: Anisocytosis 2+; Diff Comment Manual Differential; Metamyelocytes % 4; Myelocytes % 1; Poikilocytes 2+; Polychromasia Present
[2021-06-29 08:23] LABS: HCT 22.5 % (40.0-50.0); MCH 24.9 pg (27.0-33.0); MCHC 29.8 % (32.0-36.0); MCV 83.6 fL (80-95); RBC 2.69 10^6/uL (4.36-5.78); RDW 20.8 % (11.8-14.1); WBC 3.02 10^3/uL (4.4-10.8)
[2021-06-29 08:30] LABS: HGB 6.7 g/dL (13.5-17.5)
[2021-06-29 08:46] LABS: Absolute Eosinophil Count 0.12 10^3/uL (0.0-0.7); Absolute Lymphocyte Count 0.36 10^3/uL (1.2-3.4); Absolute Monocyte Count 0.21 10^3/uL (0.1-0.8); Absolute Neutrophil Count 2.27 10^3/uL (1.2-6.7); Bands % 5; Platelet Count 35 10^3/uL (130-400)
[2021-06-29 08:47] LABS: Anisocytosis 2+; Diff Comment Manual Differential; Hypochromasia 1+; Metamyelocytes % 2; Nucleated RBC 2 %; Polychromasia Present
== END 2021-07-09 23:59 | disposition home or self-care (01) ==
LOC: INF 02:47
PROVIDERS: PCP Nurse Practitioner; Visit Provider Internal Medicine Hematology & Oncology
DX: D47.1 Chronic myeloproliferative disease (principal)
CPT/HCPCS: 36415; 86850; 86900; 86901; 85025

== ENCOUNTER 2021-09-04 02:16 | Outpatient (RCR) | payer MEDICARE, SELFPAY ==
[2021-08-20] VITALS (7 sets, daily range): BP systolic 103–119; BP diastolic 57–66; PULSE 52–57; RESP 18; TEMP 36.4–37; O2SAT 94–96
[2021-08-20 08:36] LABS: HCT 23.3 % (40.0-50.0); HGB 7.7 g/dL (13.5-17.5); MCH 28.6 pg (27.0-33.0); MCV 86.6 fL (80-95); RBC 2.69 10^6/uL (4.36-5.78); RDW 14.1 % (11.8-14.1); RDW-SD 44.2 fL; WBC 2.81 10^3/uL (4.4-10.8)
[2021-08-20] MEDS: Normal Saline Flush 10 ML SYR IVP (08:42)
[2021-08-20 08:47] LABS: Absolute Lymphocyte Count 0.48 10^3/uL (1.2-3.4); Absolute Monocyte Count 0.25 10^3/uL (0.1-0.8); Absolute Neutrophil Count 2.05 10^3/uL (1.2-6.7); Atypical Lymphocytes % 1; Bands % 4; Platelet Count 6 10^3/uL (130-400)
[2021-08-20 08:48] LABS: Diff Comment Manual Differential; Metamyelocytes % 1; RBC Morphology Normal
[2021-08-22] VITALS (8 sets, daily range): BP systolic 107–119; BP diastolic 55–71; PULSE 50–54; RESP 16; TEMP 36.4–37.3; O2SAT 92–94
[2021-08-22] MEDS: Normal Saline Flush 10 ML SYR IVP ×2 (08:22→14:06)
[2021-08-22 08:49] LABS: Abs Immature Grans 0.09 10^3/uL (0.0-0.06); Absolute Basophil Count 0.01 10^3/uL (0.0-0.2); Absolute Eosinophil Count 0.01 10^3/uL (0.0-0.7); Absolute Lymphocyte Count 0.44 10^3/uL (1.2-3.4); Absolute Monocyte Count 0.31 10^3/uL (0.1-0.8); Basophils % 0.4; Eosinophils % 0.4; HCT 22.2 % (40.0-50.0); HGB 7.4 g/dL (13.5-17.5); Immature Grans % 3.8; Lymphocytes % 18.6; MCH 28.7 pg (27.0-33.0); MCHC 33.3 % (32.0-36.0); Monocytes % 13.1; Neutrophils % 63.7; Nucleated RBC 1 %; RBC 2.58 10^6/uL (4.36-5.78); RDW 13.8 % (11.8-14.1); RDW-SD 42.9 fL; WBC 2.36 10^3/uL (4.4-10.8)
[2021-08-22 09:22] LABS: Diff Comment PLT Morph Reviewed; Platelet Count 8 10^3/uL (130-400); RBC Morphology Normal
[2021-08-22] MEDS: diphenhydrAMINE 25 MG CAP PO (14:15)
[2021-08-24] VITALS (7 sets, daily range): BP systolic 110–124; BP diastolic 61–77; PULSE 49–54; RESP 16–18; TEMP 36.3–36.7; O2SAT 92–97
[2021-08-24 08:31] LABS: Abs Immature Grans 0.06 10^3/uL (0.0-0.06); Absolute Basophil Count 0.01 10^3/uL (0.0-0.2); Absolute Eosinophil Count 0.02 10^3/uL (0.0-0.7); Absolute Lymphocyte Count 0.47 10^3/uL (1.2-3.4); Absolute Monocyte Count 0.37 10^3/uL (0.1-0.8); Absolute Neutrophil Count 2.15 10^3/uL (1.2-6.7); Basophils % 0.3; Eosinophils % 0.6; HGB 7.9 g/dL (13.5-17.5); Immature Grans % 1.9; Lymphocytes % 15.3; MCH 28.4 pg (27.0-33.0); MCHC 32.9 % (32.0-36.0); MCV 86.3 fL (80-95); Neutrophils % 69.9; Nucleated RBC 1 %; RBC 2.78 10^6/uL (4.36-5.78); RDW 13.6 % (11.8-14.1); RDW-SD 42.4 fL; WBC 3.08 10^3/uL (4.4-10.8)
[2021-08-24 08:48] LABS: Diff Comment Diff Reviewed; Platelet Count 16 10^3/uL (130-400); RBC Morphology Normal
[2021-08-24] MEDS: Normal Saline Flush 10 ML SYR IVP (14:00)
[2021-08-27] VITALS (7 sets, daily range): BP systolic 123–144; BP diastolic 64–75; PULSE 53–57; RESP 16–18; TEMP 36.4–36.7; O2SAT 93–95
[2021-08-27 08:32] LABS: Abs Immature Grans 0.04 10^3/uL (0.0-0.06); Absolute Basophil Count 0.01 10^3/uL (0.0-0.2); Absolute Eosinophil Count 0.04 10^3/uL (0.0-0.7); Absolute Lymphocyte Count 0.49 10^3/uL (1.2-3.4); Absolute Monocyte Count 0.49 10^3/uL (0.1-0.8); Absolute Neutrophil Count 2.52 10^3/uL (1.2-6.7); Basophils % 0.3; Eosinophils % 1.1; HCT 24.9 % (40.0-50.0); HGB 8.2 g/dL (13.5-17.5); Immature Grans % 1.1; Lymphocytes % 13.6; MCH 29.2 pg (27.0-33.0); MCHC 32.9 % (32.0-36.0); MCV 88.6 fL (80-95); Monocytes % 13.6; Neutrophils % 70.3; Nucleated RBC 1 %; RBC 2.81 10^6/uL (4.36-5.78); RDW-SD 43.2 fL; WBC 3.59 10^3/uL (4.4-10.8)
[2021-08-27 08:45] LABS: Platelet Count 11 10^3/uL (130-400)
[2021-08-27 08:46] LABS: Polychromasia Present
[2021-08-27] MEDS: Normal Saline Flush 10 ML SYR IVP (14:54)
[2021-08-29] VITALS (7 sets, daily range): BP systolic 119–134; BP diastolic 60–75; PULSE 52–57; RESP 16–18; TEMP 36.5–37; O2SAT 94–98
[2021-08-29 08:32] LABS: Abs Immature Grans 0.04 10^3/uL (0.0-0.06); Absolute Basophil Count 0.01 10^3/uL (0.0-0.2); Absolute Lymphocyte Count 0.47 10^3/uL (1.2-3.4); Absolute Monocyte Count 0.55 10^3/uL (0.1-0.8); Absolute Neutrophil Count 1.93 10^3/uL (1.2-6.7); Basophils % 0.3; Eosinophils % 3.2; HCT 27.2 % (40.0-50.0); Immature Grans % 1.3; Lymphocytes % 15.2; MCH 29.3 pg (27.0-33.0); MCHC 33.1 % (32.0-36.0); MCV 88.6 fL (80-95); Monocytes % 17.7; Neutrophils % 62.3; Nucleated RBC 1 %; RBC 3.07 10^6/uL (4.36-5.78); RDW 15.9 % (11.8-14.1); RDW-SD 43.2 fL
[2021-08-29 08:49] LABS: Diff Comment Diff Reviewed
[2021-08-29 08:50] LABS: Polychromasia Present
[2021-08-29 08:51] LABS: Platelet Count 14 10^3/uL (130-400)
[2021-08-29] MEDS: Normal Saline Flush 10 ML SYR IVP (14:54)
[2021-08-31] VITALS (7 sets, daily range): BP systolic 120–133; BP diastolic 63–75; PULSE 51–55; RESP 17–20; TEMP 36.3–36.7; O2SAT 91–97
[2021-08-31 08:39] LABS: Abs Immature Grans 0.03 10^3/uL (0.0-0.06); Absolute Basophil Count 0.01 10^3/uL (0.0-0.2); Absolute Lymphocyte Count 0.42 10^3/uL (1.2-3.4); Absolute Monocyte Count 0.47 10^3/uL (0.1-0.8); Absolute Neutrophil Count 1.54 10^3/uL (1.2-6.7); Basophils % 0.4; Eosinophils % 3.9; HCT 25.5 % (40.0-50.0); HGB 8.6 g/dL (13.5-17.5); Immature Grans % 1.2; Lymphocytes % 16.3; MCH 29.8 pg (27.0-33.0); MCHC 33.7 % (32.0-36.0); MCV 88.2 fL (80-95); MPV 11.5 fL (8.0-11.0); Monocytes % 18.3; Neutrophils % 59.9; Nucleated RBC 0 %; RBC 2.89 10^6/uL (4.36-5.78); RDW 16.3 % (11.8-14.1); RDW-SD 43.8 fL; WBC 2.57 10^3/uL (4.4-10.8)
[2021-08-31 08:55] LABS: Diff Comment Diff Reviewed; Platelet Count 20 10^3/uL (130-400); RBC Morphology Normal
[2021-08-31] MEDS: Normal Saline Flush 10 ML SYR IVP (14:53)
== END 2021-09-06 23:59 | disposition home or self-care (01) ==
LOC: INF 02:16
PROVIDERS: PCP Nurse Practitioner; Visit Provider Internal Medicine
DX: Z94.81 Bone marrow transplant status (principal); D75.81 Myelofibrosis; L29.9 Pruritus, unspecified
CPT/HCPCS: 36415; 36430; 86850; 86900; 86901; 86920; 86945; P9073; 85025; 86644; P9016; P9035

== ENCOUNTER 2021-10-02 12:00 | Outpatient (RCR) | payer MEDICARE, SELFPAY ==
[2021-09-04 08:38] LABS: Abs Immature Grans 0.04 10^3/uL (0.0-0.06); Absolute Basophil Count 0.02 10^3/uL (0.0-0.2); Absolute Eosinophil Count 0.13 10^3/uL (0.0-0.7); Absolute Lymphocyte Count 0.42 10^3/uL (1.2-3.4); Absolute Monocyte Count 0.49 10^3/uL (0.1-0.8); Absolute Neutrophil Count 2.44 10^3/uL (1.2-6.7); Basophils % 0.6; Eosinophils % 3.7; HCT 28.9 % (40.0-50.0); HGB 9.6 g/dL (13.5-17.5); Immature Grans % 1.1; Lymphocytes % 11.9; MCH 29.8 pg (27.0-33.0); MCHC 33.2 % (32.0-36.0); MCV 89.8 fL (80-95); Monocytes % 13.8; Neutrophils % 68.9; Nucleated RBC 0 %; RBC 3.22 10^6/uL (4.36-5.78); RDW 17.8 % (11.8-14.1); RDW-SD 45.1 fL; WBC 3.54 10^3/uL (4.4-10.8)
[2021-09-04 08:52] LABS: Diff Comment Diff Reviewed; Platelet Count 20 10^3/uL (130-400); RBC Morphology Normal
[2021-09-07 00:08] VITALS: BP 128/72; PULSE 55; RESP 17; TEMP 36.4
[2021-09-07 08:41] LABS: Abs Immature Grans 0.04 10^3/uL (0.0-0.06); Absolute Basophil Count 0.01 10^3/uL (0.0-0.2); Absolute Eosinophil Count 0.16 10^3/uL (0.0-0.7); Absolute Lymphocyte Count 0.49 10^3/uL (1.2-3.4); Absolute Monocyte Count 0.71 10^3/uL (0.1-0.8); Basophils % 0.3; Eosinophils % 4.7; HCT 25.1 % (40.0-50.0); HGB 8.4 g/dL (13.5-17.5); Immature Grans % 1.2; Lymphocytes % 14.4; MCH 29.7 pg (27.0-33.0); MCHC 33.5 % (32.0-36.0); MCV 88.7 fL (80-95); Monocytes % 20.8; Neutrophils % 58.6; Nucleated RBC 0 %; RBC 2.83 10^6/uL (4.36-5.78); RDW 17.8 % (11.8-14.1); RDW-SD 45.3 fL; WBC 3.41 10^3/uL (4.4-10.8)
[2021-09-07 08:50] LABS: Diff Comment Diff Reviewed; Platelet Count 14 10^3/uL (130-400); RBC Morphology Normal
[2021-09-07 11:50] VITALS: BP 145/82; PULSE 59; RESP 19; TEMP 36.5; O2SAT 98
[2021-09-07] MEDS: Normal Saline Flush 10 ML SYR IVP (12:13)
[2021-09-07 12:24] VITALS: BP 154/78; PULSE 54; RESP 17; TEMP 36.5; O2SAT 98
[2021-09-07 12:37] VITALS: BP 145/80; PULSE 55; RESP 19; TEMP 36.4; O2SAT 98
[2021-09-07 13:05] VITALS: BP 134/65; PULSE 53; RESP 18; TEMP 36.5; O2SAT 98
[2021-09-07 14:10] VITALS: BP 181/69; PULSE 65; RESP 19; TEMP 36.6; O2SAT 99
[2021-09-11 08:31] LABS: Abs Immature Grans 0.07 10^3/uL (0.0-0.06); Absolute Basophil Count 0.04 10^3/uL (0.0-0.2); Absolute Eosinophil Count 0.32 10^3/uL (0.0-0.7); Absolute Lymphocyte Count 0.55 10^3/uL (1.2-3.4); Absolute Monocyte Count 0.58 10^3/uL (0.1-0.8); Absolute Neutrophil Count 3.02 10^3/uL (1.2-6.7); Basophils % 0.9; HCT 28.4 % (40.0-50.0); HGB 9.6 g/dL (13.5-17.5); Immature Grans % 1.5; MCH 30.1 pg (27.0-33.0); MCHC 33.8 % (32.0-36.0); Monocytes % 12.7; Neutrophils % 65.9; Nucleated RBC 0 %; RBC 3.19 10^6/uL (4.36-5.78); RDW 18.2 % (11.8-14.1); RDW-SD 45.7 fL; WBC 4.58 10^3/uL (4.4-10.8)
[2021-09-11 08:47] LABS: Platelet Count 13 10^3/uL (130-400)
[2021-09-14 08:33] LABS: HCT 24.3 % (40.0-50.0); HGB 8.2 g/dL (13.5-17.5); MCH 30.1 pg (27.0-33.0); MCHC 33.7 % (32.0-36.0); MCV 89.3 fL (80-95); RBC 2.72 10^6/uL (4.36-5.78); RDW 18.4 % (11.8-14.1); RDW-SD 45.7 fL; WBC 4.41 10^3/uL (4.4-10.8)
[2021-09-14 09:17] LABS: Platelet Count 9 10^3/uL (130-400)
[2021-09-14 09:19] LABS: Absolute Lymphocyte Count 0.44 10^3/uL (1.2-3.4); Absolute Neutrophil Count 3.26 10^3/uL (1.2-6.7); Bands % 0
[2021-09-14 09:20] LABS: Absolute Eosinophil Count 0.35 10^3/uL (0.0-0.7); Absolute Monocyte Count 0.13 10^3/uL (0.1-0.8); Nucleated RBC 1 %; Other Cells % 5
[2021-09-14 09:21] LABS: Diff Comment Manual Differential; RBC Morphology Normal
[2021-09-14] MEDS: Normal Saline Flush 10 ML SYR IVP (12:11)
[2021-09-14 12:30] VITALS: BP 114/69; PULSE 56; RESP 18; TEMP 36.3; O2SAT 94
[2021-09-14 13:10] VITALS: BP 124/77; PULSE 58; RESP 18; TEMP 36.4; O2SAT 97
[2021-09-14 13:35] VITALS: BP 132/67; BP 134/65; PULSE 60; PULSE 62; RESP 17; RESP 18; TEMP 36.4; TEMP 36.5; O2SAT 97; O2SAT 98
[2021-09-14 14:05] VITALS: BP 150/83; PULSE 58; RESP 18; TEMP 36.4; O2SAT 98
[2021-09-14 15:05] VITALS: BP 162/86; PULSE 56; RESP 18; TEMP 36.5; O2SAT 98
[2021-09-14 15:41] VITALS: BP 152/75; PULSE 53; RESP 17; TEMP 36; O2SAT 98
[2021-09-18 08:39] LABS: Abs Immature Grans 0.03 10^3/uL (0.0-0.06); Absolute Basophil Count 0.02 10^3/uL (0.0-0.2); Absolute Eosinophil Count 0.35 10^3/uL (0.0-0.7); Absolute Monocyte Count 0.52 10^3/uL (0.1-0.8); Absolute Neutrophil Count 3.38 10^3/uL (1.2-6.7); Basophils % 0.4; Eosinophils % 7.4; HCT 24.1 % (40.0-50.0); HGB 7.9 g/dL (13.5-17.5); Immature Grans % 0.6; Lymphocytes % 8.5; MCHC 32.8 % (32.0-36.0); MCV 91.6 fL (80-95); Monocytes % 11.1; Nucleated RBC 0 %; RBC 2.63 10^6/uL (4.36-5.78); RDW 20.2 % (11.8-14.1); RDW-SD 48.2 fL
[2021-09-18 08:49] LABS: Platelet Count 9 10^3/uL (130-400)
[2021-09-18 08:50] LABS: Anisocytosis 2+; Diff Comment RBC Morph Reviewed
[2021-09-18 12:20] VITALS: BP 150/69; PULSE 53; RESP 17; TEMP 36; O2SAT 98
[2021-09-18 12:30] VITALS: BP 150/49; PULSE 53; RESP 18; TEMP 36.1; O2SAT 98
[2021-09-18 13:00] VITALS: BP 167/77; PULSE 56; RESP 17; TEMP 36.5; O2SAT 97
[2021-09-18 14:00] VITALS: BP 179/81; PULSE 64; RESP 17; TEMP 35.9; O2SAT 97
[2021-09-18 14:27] VITALS: BP 178/80; PULSE 68; RESP 18; TEMP 36; O2SAT 97
[2021-09-18 15:00] VITALS: BP 156/72; PULSE 64; RESP 17; TEMP 36.1; O2SAT 97
[2021-09-18] MEDS: Normal Saline Flush 10 ML SYR IVP (15:02)
[2021-09-21 08:18] LABS: Abs Immature Grans 0.01 10^3/uL (0.0-0.06); Absolute Basophil Count 0.03 10^3/uL (0.0-0.2); Absolute Eosinophil Count 0.33 10^3/uL (0.0-0.7); Absolute Lymphocyte Count 0.54 10^3/uL (1.2-3.4); Absolute Monocyte Count 0.48 10^3/uL (0.1-0.8); Basophils % 0.7; Eosinophils % 7.9; Immature Grans % 0.2; Lymphocytes % 12.9; MCH 30.5 pg (27.0-33.0); MCHC 33.3 % (32.0-36.0); MCV 91.6 fL (80-95); Monocytes % 11.4; Neutrophils % 66.9; Nucleated RBC 0.5 % (0.0-0.3); RBC 2.62 10^6/uL (4.36-5.78); RDW 20.9 % (11.8-14.1); RDW-SD 49.1 fL
[2021-09-21 08:57] LABS: Platelet Count 11 10^3/uL (130-400)
[2021-09-21 08:58] LABS: Absolute Neutrophil Count 2.81 10^3/uL (1.2-6.7)
[2021-09-21] MEDS: Normal Saline Flush 10 ML SYR IVP (12:16)
[2021-09-21 12:20] VITALS: BP 143/67; PULSE 52; RESP 18; TEMP 36.4; O2SAT 98
[2021-09-21 12:40] VITALS: BP 169/82; PULSE 53; RESP 18; TEMP 36.3; O2SAT 97
[2021-09-21 12:55] VITALS: BP 155/75; PULSE 51; RESP 18; TEMP 36.3; O2SAT 98
[2021-09-21 14:20] VITALS: BP 169/78; PULSE 52; RESP 18; TEMP 36.3; O2SAT 99
[2021-09-21 14:55] VITALS: BP 162/65; PULSE 55; RESP 18; TEMP 36.4; O2SAT 99
[2021-09-25 08:38] LABS: Abs Immature Grans 0.01 10^3/uL (0.0-0.06); Absolute Basophil Count 0.01 10^3/uL (0.0-0.2); Absolute Eosinophil Count 0.05 10^3/uL (0.0-0.7); Absolute Lymphocyte Count 0.52 10^3/uL (1.2-3.4); Absolute Neutrophil Count 2.57 10^3/uL (1.2-6.7); Basophils % 0.3; Eosinophils % 1.4; HCT 21.4 % (40.0-50.0); HGB 7.1 g/dL (13.5-17.5); Immature Grans % 0.3; Lymphocytes % 14.6; MCH 31.1 pg (27.0-33.0); MCHC 33.2 % (32.0-36.0); MCV 93.9 fL (80-95); Monocytes % 11.2; Neutrophils % 72.2; RBC 2.28 10^6/uL (4.36-5.78); RDW 20.9 % (11.8-14.1); WBC 3.56 10^3/uL (4.4-10.8)
[2021-09-25 08:58] LABS: Platelet Count 8 10^3/uL (130-400)
[2021-09-25 09:00] LABS: Anisocytosis 1+; Diff Comment Diff Reviewed; Polychromasia Present
[2021-09-25 12:40] VITALS: BP 145/80; PULSE 53; RESP 18; TEMP 36.3; O2SAT 98
[2021-09-25 12:55] VITALS: BP 159/80; PULSE 52; RESP 18; TEMP 36.4; O2SAT 98
[2021-09-25 13:10] VITALS: BP 151/70; PULSE 52; RESP 18; TEMP 36.2; O2SAT 98
[2021-09-25 13:40] VITALS: BP 172/79; PULSE 54; RESP 18; TEMP 36.3; O2SAT 97
[2021-09-25 14:30] VITALS: BP 168/77; PULSE 53; RESP 18; TEMP 36.1; O2SAT 98
[2021-09-25 14:58] VITALS: BP 161/73; PULSE 56; RESP 18; TEMP 36.2; O2SAT 100
[2021-09-28] MEDS: Normal Saline Flush 10 ML SYR IVP ×2 (08:37→13:44)
[2021-09-28 08:49] LABS: Abs Immature Grans 0.02 10^3/uL (0.0-0.06); Absolute Basophil Count 0.01 10^3/uL (0.0-0.2); Absolute Monocyte Count 0.38 10^3/uL (0.1-0.8); Absolute Neutrophil Count 1.94 10^3/uL (1.2-6.7); Basophils % 0.4; Immature Grans % 0.7; Lymphocytes % 14.5; MCH 31.3 pg (27.0-33.0); MCHC 33.5 % (32.0-36.0); MCV 93.5 fL (80-95); Monocytes % 13.8; Neutrophils % 70.6; RBC 2.17 10^6/uL (4.36-5.78); RDW 21.4 % (11.8-14.1); RDW-SD 52.3 fL; WBC 2.75 10^3/uL (4.4-10.8)
[2021-09-28 09:02] LABS: HCT 20.3 % (40.0-50.0); HGB 6.8 g/dL (13.5-17.5); Platelet Count 6 10^3/uL (130-400)
[2021-09-28 09:03] LABS: Anisocytosis 2+; Diff Comment Diff Reviewed
[2021-09-28 13:22] VITALS: BP 147/69; PULSE 77; RESP 20; TEMP 36.6; O2SAT 99
[2021-09-28 13:37] VITALS: BP 127/77; PULSE 53; RESP 20; TEMP 36.5; O2SAT 98
[2021-09-28 13:59] VITALS: BP 157/76; PULSE 53; RESP 20; TEMP 36.7; O2SAT 99
[2021-09-28 14:07] VITALS: BP 176/84; PULSE 55; RESP 20; TEMP 36.6; O2SAT 100
[2021-09-28 14:10] VITALS: BP 159/79; PULSE 54; RESP 18; TEMP 36.5; O2SAT 99
[2021-09-28 15:42] VITALS: BP 183/73; PULSE 57; RESP 20; TEMP 36.7; O2SAT 99
[2021-09-29 11:19] VITALS: BP 159/72; PULSE 57; TEMP 36.1; O2SAT 98
[2021-09-29 11:34] VITALS: BP 159/72; PULSE 57; RESP 16; TEMP 36.1; O2SAT 99
[2021-09-29 11:40] VITALS: BP 166/79; PULSE 58; RESP 16; TEMP 36.3; O2SAT 99
[2021-09-29 11:49] VITALS: BP 168/70; PULSE 59; RESP 18; TEMP 36.8; O2SAT 99
[2021-09-29 12:03] VITALS: BP 170/82; PULSE 58; RESP 16; TEMP 36.3; O2SAT 99
[2021-09-29 12:19] VITALS: BP 170/75; PULSE 62; RESP 16; TEMP 36.3; O2SAT 99
[2021-09-29] MEDS: Normal Saline Flush 10 ML SYR IVP (12:24)
[2021-10-02] VITALS (12 sets, daily range): BP systolic 130–182; BP diastolic 61–90; PULSE 52–56; RESP 16–18; TEMP 36.1–36.9; O2SAT 98–100
[2021-10-02 08:24] LABS: Abs Immature Grans 0.02 10^3/uL (0.0-0.06); Absolute Lymphocyte Count 0.38 10^3/uL (1.2-3.4); Absolute Monocyte Count 0.26 10^3/uL (0.1-0.8); Absolute Neutrophil Count 1.62 10^3/uL (1.2-6.7); Immature Grans % 0.9; Lymphocytes % 16.7; MCH 32.4 pg (27.0-33.0); MCHC 33.5 % (32.0-36.0); MCV 96.8 fL (80-95); Monocytes % 11.4; Nucleated RBC 1.3 % (0.0-0.3); RBC 1.88 10^6/uL (4.36-5.78); RDW 22.5 % (11.8-14.1); RDW-SD 53.2 fL; WBC 2.28 10^3/uL (4.4-10.8)
[2021-10-02 08:57] LABS: HCT 18.2 % (40.0-50.0); HGB 6.1 g/dL (13.5-17.5)
[2021-10-02 08:59] LABS: Platelet Count 4 10^3/uL (130-400)
[2021-10-02 09:05] LABS: Anisocytosis 1+; Macrocytosis 1+
[2021-10-02] MEDS: Normal Saline Flush 10 ML SYR IVP (12:44)
== END 2021-10-06 23:59 | disposition home or self-care (01) ==
LOC: INF 12:00
PROVIDERS: Internal Medicine; PCP Nurse Practitioner; Visit Provider Nurse Practitioner
DX: Z94.81 Bone marrow transplant status (principal)
CPT/HCPCS: 36415; 36430; 86850; 86900; 86901; 86920; 86945; 96365; P9073; 85025; 86644; P9016; P9035

== ENCOUNTER 2021-10-26 01:53 | Outpatient (RCR) | payer MEDICARE, SELFPAY ==
[2021-10-07 00:04] VITALS: BP 161/79; PULSE 56; RESP 18; TEMP 36.9
[2021-10-09] VITALS (7 sets, daily range): BP systolic 139–163; BP diastolic 69–83; PULSE 55–60; RESP 17–18; TEMP 36.4–36.7; O2SAT 98–100
[2021-10-09 08:42] LABS: Abs Immature Grans 0.01 10^3/uL (0.0-0.06); Absolute Lymphocyte Count 0.37 10^3/uL (1.2-3.4); Absolute Neutrophil Count 1.56 10^3/uL (1.2-6.7); Immature Grans % 0.5; Lymphocytes % 17.3; MCH 30.9 pg (27.0-33.0); MCV 94 fL (80-95); Monocytes % 9.3; Neutrophils % 72.9; Nucleated RBC 0.9 % (0.0-0.3); RBC 2.23 10^6/uL (4.36-5.78); RDW 21.3 % (11.8-14.1); RDW-SD 50.8 fL; WBC 2.14 10^3/uL (4.4-10.8)
[2021-10-09 09:00] LABS: HCT 20.9 % (40.0-50.0); HGB 6.9 g/dL (13.5-17.5)
[2021-10-09 09:18] LABS: Anisocytosis 3+; Diff Comment Agrees w/ Instrument; Poikilocytes 1+
[2021-10-09 09:19] LABS: Platelet Count 4 10^3/uL (130-400)
[2021-10-09] MEDS: Normal Saline Flush 10 ML SYR IVP (14:54)
[2021-10-16 08:36] LABS: HCT 21.4 % (40.0-50.0); MCH 31.2 pg (27.0-33.0); MCHC 33.6 % (32.0-36.0); MCV 93 fL (80-95); MPV 8.6 fL (8.0-11.0); RBC 2.31 10^6/uL (4.36-5.78); RDW 18.9 % (11.8-14.1); RDW-SD 49.1 fL
[2021-10-16 09:01] LABS: Absolute Eosinophil Count 0.02 10^3/uL (0.0-0.7); Absolute Lymphocyte Count 0.39 10^3/uL (1.2-3.4); Absolute Monocyte Count 0.18 10^3/uL (0.1-0.8); Atypical Lymphocytes % 1; Bands % 1
[2021-10-16 09:02] LABS: Anisocytosis 2+; Diff Comment Diff Reviewed; Metamyelocytes % 1; Myelocytes % 1; Ovalocytes 2+
[2021-10-16 09:08] LABS: Platelet Count 17 10^3/uL (130-400)
[2021-10-16 09:09] LABS: Absolute Neutrophil Count 1.66 10^3/uL (1.2-6.7); HGB 7.2 g/dL (13.5-17.5)
[2021-10-16 11:20] VITALS: BP 146/78; PULSE 54; RESP 0; TEMP 36.6; O2SAT 100
[2021-10-16 11:31] LABS: Magnesium 1.7 mg/dL (1.8-2.4)
[2021-10-16 11:37] VITALS: BP 163/78; PULSE 52; RESP 20; TEMP 36.4; O2SAT 99
[2021-10-16] MEDS: Normal Saline Flush 10 ML SYR IVP ×2 (11:45→14:21)
[2021-10-16 12:07] VITALS: BP 164/88; PULSE 57; RESP 20; TEMP 36.6; O2SAT 97
[2021-10-16 13:12] VITALS: BP 168/99; PULSE 53; RESP 20; TEMP 36.5; O2SAT 99
[2021-10-16 13:25] VITALS: BP 172/81; PULSE 53; RESP 20; TEMP 36.1; O2SAT 99
[2021-10-16 14:05] VITALS: BP 153/70; PULSE 56; RESP 20; TEMP 36.5; O2SAT 99
[2021-10-19] MEDS: Normal Saline Flush 10 ML SYR IVP (08:22)
[2021-10-19 08:25] LABS: Abs Immature Grans 0.01 10^3/uL (0.0-0.06); Absolute Lymphocyte Count 0.24 10^3/uL (1.2-3.4); Absolute Monocyte Count 0.14 10^3/uL (0.1-0.8); Absolute Neutrophil Count 0.78 10^3/uL (1.2-6.7); Immature Grans % 0.9; Lymphocytes % 20.5; MCH 31.5 pg (27.0-33.0); MCV 93 fL (80-95); Neutrophils % 66.6; RBC 2.13 10^6/uL (4.36-5.78); RDW 18.9 % (11.8-14.1); RDW-SD 49.7 fL
[2021-10-19 08:31] LABS: Magnesium 1.8 mg/dL (1.8-2.4)
[2021-10-19 08:40] LABS: HCT 19.7 % (40.0-50.0); HGB 6.7 g/dL (13.5-17.5); WBC 1.17 10^3/uL (4.4-10.8)
[2021-10-19 08:43] LABS: Diff Comment Diff Reviewed; Platelet Count 13 10^3/uL (130-400); RBC Morphology Normal
[2021-10-19 09:16] VITALS: BP 128/60; PULSE 61; RESP 18; TEMP 36.2; O2SAT 100
[2021-10-19 09:31] VITALS: BP 162/89; PULSE 65; RESP 16; TEMP 36.5; O2SAT 100
[2021-10-19 10:01] VITALS: BP 150/79; PULSE 66; RESP 16; TEMP 36.4; O2SAT 100
[2021-10-19 11:00] VITALS: BP 151/82; PULSE 65; RESP 16; TEMP 36.5; O2SAT 99
[2021-10-19 12:16] VITALS: BP 149/87; PULSE 58; RESP 16; TEMP 36.5; O2SAT 100
[2021-10-19 13:06] VITALS: BP 139/91; PULSE 68; RESP 16; TEMP 36.5; O2SAT 99
[2021-10-23] VITALS (12 sets, daily range): BP systolic 115–156; BP diastolic 65–82; PULSE 71–79; RESP 17–19; TEMP 36.3–36.5; O2SAT 98–100
[2021-10-23 08:26] LABS: MCH 30.9 pg (27.0-33.0); MCHC 32.5 % (32.0-36.0); MCV 95 fL (80-95); RBC 1.78 10^6/uL (4.36-5.78); RDW 18.6 % (11.8-14.1); RDW-SD 51.2 fL
[2021-10-23 08:31] LABS: Magnesium 1.4 mg/dL (1.8-2.4)
[2021-10-23 08:46] LABS: Absolute Lymphocyte Count 0.26 10^3/uL (1.2-3.4); Absolute Monocyte Count 0.01 10^3/uL (0.1-0.8); Absolute Neutrophil Count 0.67 10^3/uL (1.2-6.7); Atypical Lymphocytes % 0; Bands % 0; Diff Comment Manual Differential; RBC Morphology Normal
[2021-10-23 08:57] LABS: WBC 0.94 10^3/uL (4.4-10.8)
[2021-10-23 08:58] LABS: HCT 16.9 % (40.0-50.0); HGB 5.5 g/dL (13.5-17.5)
[2021-10-23 08:59] LABS: Platelet Count 7 10^3/uL (130-400)
[2021-10-23] MEDS: Normal Saline Flush 10 ML SYR IVP (11:33)
[2021-10-24] MEDS: Normal Saline Flush 10 ML SYR IVP (08:25)
[2021-10-24] MEDS: MAGNESIUM SULFATE 2 GM/50 ML BAG IVPB (08:25)
[2021-10-24 08:44] LABS: Abs Immature Grans 0.01 10^3/uL (0.0-0.06); Absolute Lymphocyte Count 0.26 10^3/uL (1.2-3.4); Absolute Monocyte Count 0.12 10^3/uL (0.1-0.8); Absolute Neutrophil Count 0.74 10^3/uL (1.2-6.7); Immature Grans % 0.9; MCH 30.7 pg (27.0-33.0); MCV 93 fL (80-95); Monocytes % 10.6; Neutrophils % 65.5; RBC 1.92 10^6/uL (4.36-5.78); RDW 17.2 % (11.8-14.1); RDW-SD 47.3 fL
[2021-10-24 09:09] LABS: Anisocytosis 3+; Diff Comment Agrees w/ Instrument; Poikilocytes 1+; Polychromasia Present
[2021-10-24 09:17] LABS: HGB 5.9 g/dL (13.5-17.5); WBC 1.13 10^3/uL (4.4-10.8)
[2021-10-24 09:18] LABS: HCT 17.9 % (40.0-50.0); Platelet Count 5 10^3/uL (130-400)
== END 2021-11-06 23:59 | disposition home or self-care (01) ==
LOC: INF 01:53
PROVIDERS: Internal Medicine Hematology & Oncology; PCP Nurse Practitioner; Visit Provider Nurse Practitioner
DX: Z94.81 Bone marrow transplant status (principal); D75.81 Myelofibrosis
CPT/HCPCS: 36415; 36430; 86850; 86900; 86901; 86920; 86945; 96365; 96366; 83735; 85025; P9016; P9035

== ENCOUNTER 2021-12-03 03:09 | Outpatient (RCR) | payer MEDICARE, SELFPAY ==
[2021-11-16 08:44] LABS: Abs Immature Grans 0.07 10^3/uL (0.0-0.06); Absolute Basophil Count 0.02 10^3/uL (0.0-0.2); Absolute Lymphocyte Count 0.35 10^3/uL (1.2-3.4); Absolute Monocyte Count 1.72 10^3/uL (0.1-0.8); Absolute Neutrophil Count 4.45 10^3/uL (1.2-6.7); Basophils % 0.3; HCT 24.7 % (40.0-50.0); HGB 8.4 g/dL (13.5-17.5); Immature Grans % 1.1; Lymphocytes % 5.3; MCH 30.5 pg (27.0-33.0); MCV 90 fL (80-95); MPV 11.2 fL (8.0-11.0); Neutrophils % 67.3; Nucleated RBC 0.8 % (0.0-0.3); RBC 2.75 10^6/uL (4.36-5.78); RDW-SD 50.6 fL; WBC 6.61 10^3/uL (4.4-10.8)
[2021-11-16 09:11] LABS: RBC Morphology Normal
[2021-11-16 09:13] LABS: Diff Comment Agrees w/ Instrument
[2021-11-16 09:14] LABS: Platelet Count 44 10^3/uL (130-400)
[2021-11-19 08:30] LABS: Abs Immature Grans 0.06 10^3/uL (0.0-0.06); Absolute Basophil Count 0.02 10^3/uL (0.0-0.2); Absolute Lymphocyte Count 0.41 10^3/uL (1.2-3.4); Absolute Monocyte Count 1.07 10^3/uL (0.1-0.8); Absolute Neutrophil Count 3.88 10^3/uL (1.2-6.7); Basophils % 0.4; HCT 24.9 % (40.0-50.0); HGB 8.1 g/dL (13.5-17.5); Immature Grans % 1.1; Lymphocytes % 7.5; MCH 30.2 pg (27.0-33.0); MCHC 32.5 % (32.0-36.0); MCV 93 fL (80-95); Monocytes % 19.7; Neutrophils % 71.3; Nucleated RBC 0.6 % (0.0-0.3); RBC 2.68 10^6/uL (4.36-5.78); RDW 19.1 % (11.8-14.1); RDW-SD 53.1 fL; WBC 5.44 10^3/uL (4.4-10.8)
[2021-11-19 08:48] LABS: Platelet Count 66 10^3/uL (130-400)
[2021-12-03 08:46] LABS: Absolute Basophil Count 0.02 10^3/uL (0.0-0.2); Absolute Eosinophil Count 0.01 10^3/uL (0.0-0.7); Absolute Lymphocyte Count 0.66 10^3/uL (1.2-3.4); Absolute Monocyte Count 1.37 10^3/uL (0.1-0.8); Absolute Neutrophil Count 4.85 10^3/uL (1.2-6.7); Basophils % 0.3; Eosinophils % 0.1; HCT 22.6 % (40.0-50.0); HGB 7.6 g/dL (13.5-17.5); Immature Grans % 1.4; Lymphocytes % 9.4; MCH 31.1 pg (27.0-33.0); MCHC 33.6 % (32.0-36.0); MCV 93 fL (80-95); Monocytes % 19.5; Neutrophils % 69.3; Nucleated RBC 0.3 % (0.0-0.3); RBC 2.44 10^6/uL (4.36-5.78); RDW-SD 69.9 fL; WBC 7.01 10^3/uL (4.4-10.8)
[2021-12-03 08:51] LABS: Anisocytosis 2+; Diff Comment RBC Morph Reviewed; Platelet Count 77 10^3/uL (130-400); Poikilocytes 1+
== END 2021-12-06 23:59 | disposition home or self-care (01) ==
LOC: INF 03:09
PROVIDERS: Nurse Practitioner Family; PCP Nurse Practitioner; Visit Provider Internal Medicine Hematology & Oncology
DX: D47.1 Chronic myeloproliferative disease (principal)
CPT/HCPCS: 36415; 86850; 86900; 86901; 85025

== ENCOUNTER 2021-12-31 02:32 | Outpatient (RCR) | payer MEDICARE, SELFPAY ==
[2021-12-11 08:42] LABS: Abs Immature Grans 0.09 10^3/uL (0.0-0.06); Absolute Basophil Count 0.03 10^3/uL (0.0-0.2); Absolute Eosinophil Count 0.01 10^3/uL (0.0-0.7); Absolute Lymphocyte Count 0.74 10^3/uL (1.2-3.4); Absolute Monocyte Count 1.01 10^3/uL (0.1-0.8); Absolute Neutrophil Count 5.13 10^3/uL (1.2-6.7); Basophils % 0.4; Eosinophils % 0.1; HCT 23.6 % (40.0-50.0); Immature Grans % 1.3; Lymphocytes % 10.6; MCH 30.9 pg (27.0-33.0); MCHC 33.9 % (32.0-36.0); MCV 91 fL (80-95); Monocytes % 14.4; Neutrophils % 73.2; Nucleated RBC 0.4 % (0.0-0.3); RBC 2.59 10^6/uL (4.36-5.78); RDW 23.6 % (11.8-14.1); RDW-SD 73.3 fL; WBC 7.01 10^3/uL (4.4-10.8)
[2021-12-11 09:07] LABS: Anisocytosis 3+; Diff Comment RBC Morph Reviewed; Platelet Count 97 10^3/uL (130-400); Polychromasia Present
[2021-12-11 09:08] LABS: Poikilocytes 2+
[2021-12-17 08:24] LABS: Abs Immature Grans 0.11 10^3/uL (0.0-0.06); Absolute Basophil Count 0.03 10^3/uL (0.0-0.2); Absolute Eosinophil Count 0.04 10^3/uL (0.0-0.7); Absolute Lymphocyte Count 0.71 10^3/uL (1.2-3.4); Absolute Monocyte Count 1.06 10^3/uL (0.1-0.8); Absolute Neutrophil Count 4.94 10^3/uL (1.2-6.7); Basophils % 0.4; Eosinophils % 0.6; HCT 22.5 % (40.0-50.0); HGB 7.6 g/dL (13.5-17.5); Immature Grans % 1.6; Lymphocytes % 10.3; MCHC 33.8 % (32.0-36.0); MCV 92 fL (80-95); Monocytes % 15.4; Neutrophils % 71.7; Nucleated RBC 0.7 % (0.0-0.3); RBC 2.45 10^6/uL (4.36-5.78); RDW 25.5 % (11.8-14.1); RDW-SD 80.3 fL; WBC 6.89 10^3/uL (4.4-10.8)
[2021-12-17 08:46] LABS: Anisocytosis 2+; Diff Comment RBC Morph Reviewed; Platelet Count 107 10^3/uL (130-400); Poikilocytes 2+; Polychromasia Present
[2021-12-24 08:18] LABS: Abs Immature Grans 0.14 10^3/uL (0.0-0.06); Absolute Basophil Count 0.03 10^3/uL (0.0-0.2); Absolute Eosinophil Count 0.05 10^3/uL (0.0-0.7); Absolute Monocyte Count 1.29 10^3/uL (0.1-0.8); Absolute Neutrophil Count 4.58 10^3/uL (1.2-6.7); Basophils % 0.4; Eosinophils % 0.7; HCT 21.8 % (40.0-50.0); HGB 7.4 g/dL (13.5-17.5); Lymphocytes % 12.9; MCH 31.8 pg (27.0-33.0); MCHC 33.9 % (32.0-36.0); MCV 94 fL (80-95); Monocytes % 18.5; Neutrophils % 65.5; Nucleated RBC 1.9 % (0.0-0.3); Platelet Count 115 10^3/uL (130-400); RBC 2.33 10^6/uL (4.36-5.78); RDW 27.9 % (11.8-14.1); RDW-SD 87.9 fL; WBC 6.99 10^3/uL (4.4-10.8)
[2021-12-24 08:34] LABS: Anisocytosis 3+; Diff Comment RBC Morph Reviewed
[2021-12-24 08:35] LABS: Poikilocytes 2+
[2021-12-24] MEDS: Normal Saline Flush 10 ML SYR IVP ×2 (08:45→11:26)
[2021-12-24 09:29] VITALS: BP 134/67; PULSE 68; RESP 17; TEMP 36.1; O2SAT 97
[2021-12-24 09:44] VITALS: BP 143/71; PULSE 72; RESP 16; TEMP 36.7; O2SAT 97
[2021-12-24 10:00] VITALS: BP 142/74; PULSE 79; RESP 17; TEMP 36.7; O2SAT 96
[2021-12-24 10:40] VITALS: BP 151/81; PULSE 72; RESP 17; TEMP 36.7; O2SAT 96
[2021-12-24 11:12] VITALS: BP 133/74; PULSE 72; RESP 17; TEMP 36.7; O2SAT 97
[2021-12-31 08:29] LABS: Abs Immature Grans 0.15 10^3/uL (0.0-0.06); Absolute Basophil Count 0.04 10^3/uL (0.0-0.2); Absolute Eosinophil Count 0.09 10^3/uL (0.0-0.7); Absolute Lymphocyte Count 0.81 10^3/uL (1.2-3.4); Absolute Monocyte Count 1.15 10^3/uL (0.1-0.8); Absolute Neutrophil Count 4.64 10^3/uL (1.2-6.7); Basophils % 0.6; Eosinophils % 1.3; HCT 26.9 % (40.0-50.0); HGB 9.4 g/dL (13.5-17.5); Immature Grans % 2.2; Lymphocytes % 11.8; MCH 32.2 pg (27.0-33.0); MCHC 34.9 % (32.0-36.0); MCV 92 fL (80-95); Monocytes % 16.7; Neutrophils % 67.4; Nucleated RBC 2.3 % (0.0-0.3); RBC 2.92 10^6/uL (4.36-5.78); RDW 29.4 % (11.8-14.1); RDW-SD 91.5 fL; WBC 6.88 10^3/uL (4.4-10.8)
[2021-12-31 08:49] LABS: Platelet Count 112 10^3/uL (130-400)
[2021-12-31 08:50] LABS: Anisocytosis 2+; Diff Comment RBC Morph Reviewed; Poikilocytes 2+
== END 2022-01-06 23:59 | disposition home or self-care (01) ==
LOC: INF 02:32
PROVIDERS: PCP Nurse Practitioner; Visit Provider Internal Medicine Hematology & Oncology
DX: D47.1 Chronic myeloproliferative disease (principal); K92.2 Gastrointestinal hemorrhage, unspecified; Z94.84 Stem cells transplant status; Z90.81 Acquired absence of spleen
CPT/HCPCS: 36415; 36430; 36591; 86850; 86900; 86901; 86920; 86945; 85025; P9016

== ENCOUNTER 2022-01-29 02:36 | Outpatient (RCR) | payer MEDICARE, SELFPAY ==
[2022-01-07 00:20] VITALS: BP 133/74; PULSE 72; RESP 17; TEMP 36.7
[2022-01-22 08:28] LABS: Absolute Basophil Count 0.12 10^3/uL (0.0-0.2); Absolute Eosinophil Count 0.35 10^3/uL (0.0-0.7); Absolute Lymphocyte Count 1.02 10^3/uL (1.2-3.4); Absolute Monocyte Count 1.27 10^3/uL (0.1-0.8); Absolute Neutrophil Count 4.76 10^3/uL (1.2-6.7); Basophils % 1.5; Eosinophils % 4.4; HCT 31.6 % (40.0-50.0); HGB 10.4 g/dL (13.5-17.5); Immature Grans % 5.1; Lymphocytes % 12.9; MCH 31.9 pg (27.0-33.0); MCHC 32.9 % (32.0-36.0); MCV 97 fL (80-95); Neutrophils % 60.1; Platelet Count 252 10^3/uL (130-400); RBC 3.26 10^6/uL (4.36-5.78); RDW-SD 103.6 fL; WBC 7.92 10^3/uL (4.4-10.8)
[2022-01-22 08:47] LABS: ALT 87 U/L (16-63); AST 61 U/L (15-37); Albumin 3.6 g/dL (3.4-5.0); Alkaline Phosphatase 651 U/L (46-116); BUN 18 mg/dL (7-18); Bilirubin, Total 0.6 mg/dL (0.2-1.0); CREATININE 0.8 mg/dL (0.70-1.30); Calcium 9.3 mg/dL (8.5-10.1); Chloride 106 mmol/L (98-107); Glucose 85 mg/dL (74-106); Potassium 4.2 mmol/L (3.5-5.1); Sodium 141 mmol/L (136-145)
[2022-01-22 09:21] LABS: Diff Comment Agrees w/ Instrument; Hypochromasia 2+; Macrocytosis 1+; Microcytosis 1+; Polychromasia Present
[2022-01-22 09:22] LABS: Poikilocytes 2+
[2022-01-29 08:34] LABS: Abs Immature Grans 0.43 10^3/uL (0.0-0.06); Absolute Basophil Count 0.17 10^3/uL (0.0-0.2); Absolute Eosinophil Count 0.49 10^3/uL (0.0-0.7); Absolute Lymphocyte Count 0.96 10^3/uL (1.2-3.4); Absolute Monocyte Count 1.29 10^3/uL (0.1-0.8); Absolute Neutrophil Count 6.27 10^3/uL (1.2-6.7); Basophils % 1.8; Eosinophils % 5.1; HCT 32.6 % (40.0-50.0); HGB 10.7 g/dL (13.5-17.5); Immature Grans % 4.5; MCH 31.7 pg (27.0-33.0); MCHC 32.8 % (32.0-36.0); MCV 96 fL (80-95); Monocytes % 13.4; Neutrophils % 65.2; Nucleated RBC 0.7 % (0.0-0.3); Platelet Count 341 10^3/uL (130-400); RBC 3.38 10^6/uL (4.36-5.78); RDW 27.3 % (11.8-14.1); RDW-SD 93.6 fL; WBC 9.61 10^3/uL (4.4-10.8)
[2022-01-29 08:40] LABS: ALT 95 U/L (16-63); AST 67 U/L (15-37); Albumin 3.7 g/dL (3.4-5.0); Alkaline Phosphatase 676 U/L (46-116); Anion Gap 9.5 mmol/L (3-11); BUN 19 mg/dL (7-18); Bilirubin, Total 0.5 mg/dL (0.2-1.0); CO2 25.5 mmol/L (21.0-32.0); CREATININE 0.8 mg/dL (0.70-1.30); Calcium 9.1 mg/dL (8.5-10.1); Chloride 105 mmol/L (98-107); Glucose 92 mg/dL (74-106); Sodium 140 mmol/L (136-145)
[2022-01-29 08:47] LABS: Diff Comment RBC Morph Reviewed
[2022-01-29 08:49] LABS: Anisocytosis 2+; Basophilic Stippling Present; Poikilocytes 2+
== END 2022-02-06 23:59 | disposition home or self-care (01) ==
LOC: INF 02:36
PROVIDERS: Nurse Practitioner Family; PCP Nurse Practitioner; Visit Provider Internal Medicine Hematology & Oncology
DX: D47.1 Chronic myeloproliferative disease (principal); Z94.84 Stem cells transplant status
CPT/HCPCS: 36415; 80053; 85025

== ENCOUNTER 2022-02-21 03:24 | Outpatient (RCR) | payer MEDICARE, SELFPAY ==
[2022-02-07 00:08] VITALS: BP 133/74; PULSE 72; RESP 17; TEMP 36.7
[2022-02-21 08:43] LABS: HCT 37.5 % (40.0-50.0); HGB 12.4 g/dL (13.5-17.5); MCH 30.9 pg (27.0-33.0); MCHC 33.1 % (32.0-36.0); MCV 94 fL (80-95); MPV 10.7 fL (8.0-11.0); Platelet Count 725 10^3/uL (130-400); RBC 4.01 10^6/uL (4.36-5.78); RDW 23.7 % (11.8-14.1); RDW-SD 75.8 fL; WBC 17.78 10^3/uL (4.4-10.8)
[2022-02-21 09:11] LABS: Absolute Eosinophil Count 1.24 10^3/uL (0.0-0.7); Absolute Lymphocyte Count 0.89 10^3/uL (1.2-3.4); Absolute Monocyte Count 2.13 10^3/uL (0.1-0.8); Absolute Neutrophil Count 13.51 10^3/uL (1.2-6.7); Anisocytosis 2+; Bands % 3; Diff Comment Manual Differential
[2022-02-21 09:21] LABS: ALT 104 U/L (16-63); AST 76 U/L (15-37); Albumin 3.5 g/dL (3.4-5.0); Alkaline Phosphatase 796 U/L (46-116); Anion Gap 8.3 mmol/L (3-11); BUN 17 mg/dL (7-18); Bilirubin, Total 0.4 mg/dL (0.2-1.0); CO2 26.7 mmol/L (21.0-32.0); CREATININE 0.9 mg/dL (0.70-1.30); Calcium 9.5 mg/dL (8.5-10.1); Chloride 104 mmol/L (98-107); Estimated GFR 92.45 (mL/min/1.73m2); Glucose 81 mg/dL (74-106); Sodium 139 mmol/L (136-145); Total Protein 7.2 g/dL (6.4-8.2)
== END 2022-03-08 23:59 | disposition home or self-care (01) ==
LOC: INF 03:24
PROVIDERS: Internal Medicine Hematology & Oncology; PCP Nurse Practitioner; Visit Provider Internal Medicine Hematology & Oncology
DX: Z94.84 Stem cells transplant status (principal); D47.1 Chronic myeloproliferative disease
CPT/HCPCS: 36415; 80053; 85025

== ENCOUNTER 2022-03-25 02:39 | Outpatient (RCR) | payer MEDICARE, SELFPAY ==
[2022-03-09 00:06] VITALS: BP 133/74; PULSE 72; RESP 17; TEMP 36.7
[2022-03-25 14:23] LABS: HCT 47.3 % (40.0-50.0); HGB 15.2 g/dL (13.5-17.5); MCH 29.5 pg (27.0-33.0); MCHC 32.1 % (32.0-36.0); MCV 92 fL (80-95); MPV 11.1 fL (8.0-11.0); RBC 5.16 10^6/uL (4.36-5.78); RDW 22.4 % (11.8-14.1); RDW-SD 71.3 fL
[2022-03-25 14:42] LABS: ALT 86 U/L (16-63); AST 53 U/L (15-37); Albumin 3.1 g/dL (3.4-5.0); Alkaline Phosphatase 873 U/L (46-116); Anion Gap 8.8 mmol/L (3-11); BUN 14 mg/dL (7-18); Bilirubin, Total 0.4 mg/dL (0.2-1.0); CO2 25.2 mmol/L (21.0-32.0); CREATININE 0.7 mg/dL (0.70-1.30); Calcium 9.2 mg/dL (8.5-10.1); Chloride 105 mmol/L (98-107); Estimated GFR 99.74 (mL/min/1.73m2); Glucose 62 mg/dL (74-106); Potassium 3.7 mmol/L (3.5-5.1); Sodium 139 mmol/L (136-145); Total Protein 6.9 g/dL (6.4-8.2)
[2022-03-25 15:18] LABS: WBC 26.98 10^3/uL (4.4-10.8)
[2022-03-25 15:23] LABS: Absolute Eosinophil Count 3.78 10^3/uL (0.0-0.7); Absolute Lymphocyte Count 1.35 10^3/uL (1.2-3.4); Absolute Monocyte Count 1.62 10^3/uL (0.1-0.8); Absolute Neutrophil Count 19.97 10^3/uL (1.2-6.7); Atypical Lymphocytes % 4; Bands % 4
[2022-03-25 15:24] LABS: Anisocytosis 1+; Diff Comment Manual Differential; Metamyelocytes % 1; Platelet Count 1024 10^3/uL (130-400)
== END 2022-04-08 23:59 | disposition home or self-care (01) ==
LOC: INF 02:39
PROVIDERS: PCP Nurse Practitioner; Visit Provider Internal Medicine Hematology & Oncology
DX: D47.1 Chronic myeloproliferative disease (principal)
CPT/HCPCS: 36415; 80053; 85025

== ENCOUNTER 2022-04-29 02:18 | Outpatient (RCR) | payer MEDICARE, SELFPAY ==
[2022-04-09 00:03] VITALS: BP 133/74; PULSE 72; RESP 17; TEMP 36.7
[2022-04-15 08:24] LABS: HCT 46.2 % (40.0-50.0); MCH 28.8 pg (27.0-33.0); MCHC 32.5 % (32.0-36.0); MCV 89 fL (80-95); Platelet Count 137 10^3/uL (130-400); RBC 5.21 10^6/uL (4.36-5.78); RDW 20.2 % (11.8-14.1); WBC 5.17 10^3/uL (4.4-10.8)
[2022-04-15 08:39] LABS: ALT 145 U/L (16-63); AST 112 U/L (15-37); Albumin 3.3 g/dL (3.4-5.0); Alkaline Phosphatase 648 U/L (46-116); BUN 20 mg/dL (7-18); Bilirubin, Total 0.6 mg/dL (0.2-1.0); CREATININE 0.7 mg/dL (0.70-1.30); Calcium 9.1 mg/dL (8.5-10.1); Chloride 107 mmol/L (98-107); Estimated GFR 99.74 (mL/min/1.73m2); Glucose 78 mg/dL (74-106); Potassium 3.9 mmol/L (3.5-5.1); Sodium 141 mmol/L (136-145); Total Protein 6.9 g/dL (6.4-8.2)
[2022-04-15 08:48] LABS: Absolute Lymphocyte Count 1.19 10^3/uL (1.2-3.4); Absolute Monocyte Count 0.16 10^3/uL (0.1-0.8); Absolute Neutrophil Count 2.12 10^3/uL (1.2-6.7); Atypical Lymphocytes % 1
[2022-04-15 08:49] LABS: Anisocytosis 2+; Diff Comment Manual Differential
[2022-04-29 10:58] LABS: Abs Immature Grans 0.13 10^3/uL (0.0-0.06); Absolute Basophil Count 0.16 10^3/uL (0.0-0.2); Absolute Eosinophil Count 1.27 10^3/uL (0.0-0.7); Absolute Lymphocyte Count 0.66 10^3/uL (1.2-3.4); Absolute Monocyte Count 1.33 10^3/uL (0.1-0.8); Absolute Neutrophil Count 5.92 10^3/uL (1.2-6.7); Basophils % 1.7; Eosinophils % 13.4; HCT 39.2 % (40.0-50.0); Immature Grans % 1.4; MCH 28.8 pg (27.0-33.0); MCHC 33.2 % (32.0-36.0); MCV 87 fL (80-95); Neutrophils % 62.5; RBC 4.52 10^6/uL (4.36-5.78); RDW 20.2 % (11.8-14.1); RDW-SD 61.1 fL; WBC 9.47 10^3/uL (4.4-10.8)
[2022-04-29 11:04] LABS: Anisocytosis 2+; Diff Comment RBC Morph Reviewed; Platelet Count 76 10^3/uL (130-400)
[2022-04-29 11:11] LABS: ALT 158 U/L (16-63); AST 94 U/L (15-37); Albumin 2.8 g/dL (3.4-5.0); Alkaline Phosphatase 741 U/L (46-116); BUN 18 mg/dL (7-18); Bilirubin, Total 0.5 mg/dL (0.2-1.0); CREATININE 0.8 mg/dL (0.70-1.30); Calcium 8.8 mg/dL (8.5-10.1); Chloride 101 mmol/L (98-107); Glucose 145 mg/dL (74-106); Potassium 4.1 mmol/L (3.5-5.1); Sodium 134 mmol/L (136-145); Total Protein 6.6 g/dL (6.4-8.2)
== END 2022-05-08 23:59 | disposition home or self-care (01) ==
LOC: INF 02:18
PROVIDERS: Nurse Practitioner Family; PCP Nurse Practitioner; Visit Provider Internal Medicine Hematology & Oncology
DX: D47.1 Chronic myeloproliferative disease (principal)
CPT/HCPCS: 36415; 80053; 85025

== ENCOUNTER 2022-05-14 02:59 | Outpatient (RCR) | payer MEDICARE, SELFPAY ==
[2022-05-09 00:04] VITALS: BP 133/74; PULSE 72; RESP 17; TEMP 36.7
[2022-05-14 09:37] LABS: HCT 41.1 % (40.0-50.0); HGB 13.3 g/dL (13.5-17.5); MCHC 32.4 % (32.0-36.0); MCV 90 fL (80-95); MPV 10.5 fL (8.0-11.0); Platelet Count 535 10^3/uL (130-400); RBC 4.59 10^6/uL (4.36-5.78); RDW-SD 71.8 fL; WBC 20.81 10^3/uL (4.4-10.8)
[2022-05-14 09:49] LABS: Absolute Basophil Count 0.62 10^3/uL (0.0-0.2); Absolute Eosinophil Count 0.83 10^3/uL (0.0-0.7); Absolute Lymphocyte Count 1.25 10^3/uL (1.2-3.4); Absolute Monocyte Count 1.04 10^3/uL (0.1-0.8); Absolute Neutrophil Count 17.06 10^3/uL (1.2-6.7); Atypical Lymphocytes % 1; Bands % 3
[2022-05-14 09:50] LABS: Anisocytosis 2+; Diff Comment Manual Differential
[2022-05-14 09:59] LABS: ALT 88 U/L (16-63); AST 55 U/L (15-37); Albumin 2.8 g/dL (3.4-5.0); Anion Gap 7.5 mmol/L (3-11); BUN 15 mg/dL (7-18); Bilirubin, Total 0.4 mg/dL (0.2-1.0); CO2 29.5 mmol/L (21.0-32.0); Calcium 9.2 mg/dL (8.5-10.1); Chloride 103 mmol/L (98-107); Estimated GFR 81.47 (mL/min/1.73m2); Glucose 83 mg/dL (74-106); Potassium 3.8 mmol/L (3.5-5.1); Sodium 140 mmol/L (136-145); Total Protein 7.3 g/dL (6.4-8.2)
[2022-05-14 10:02] LABS: Alkaline Phosphatase 1066 U/L (46-116)
== END 2022-06-08 23:59 | disposition home or self-care (01) ==
LOC: INF 02:59
PROVIDERS: PCP Nurse Practitioner; Visit Provider Internal Medicine Hematology & Oncology
DX: Z94.84 Stem cells transplant status (principal); D47.1 Chronic myeloproliferative disease
CPT/HCPCS: 36415; 80053; 85025

== ENCOUNTER 2022-07-04 02:10 | Outpatient (RCR) | payer MEDICARE, SELFPAY ==
[2022-06-09 00:16] VITALS: BP 133/74; PULSE 72; RESP 17; TEMP 36.7
[2022-06-11 09:31] LABS: HCT 40.2 % (40.0-50.0); HGB 13.3 g/dL (13.5-17.5); MCH 29.4 pg (27.0-33.0); MCHC 33.1 % (32.0-36.0); MCV 89 fL (80-95); MPV 11.7 fL (8.0-11.0); Platelet Count 745 10^3/uL (130-400); RBC 4.52 10^6/uL (4.36-5.78); RDW 27.1 % (11.8-14.1); RDW-SD 85.4 fL
[2022-06-11 09:49] LABS: ALT 118 U/L (16-63); AST 93 U/L (15-37); Albumin 3.2 g/dL (3.4-5.0); Alkaline Phosphatase 784 U/L (46-116); Anion Gap 6.2 mmol/L (3-11); BUN 19 mg/dL (7-18); Bilirubin, Total 0.4 mg/dL (0.2-1.0); CO2 28.8 mmol/L (21.0-32.0); CREATININE 0.8 mg/dL (0.70-1.30); Calcium 8.9 mg/dL (8.5-10.1); Chloride 106 mmol/L (98-107); Glucose 77 mg/dL (74-106); Sodium 141 mmol/L (136-145); Total Protein 7.5 g/dL (6.4-8.2)
[2022-06-11 09:50] LABS: Absolute Basophil Count 1.04 10^3/uL (0.0-0.2); Absolute Eosinophil Count 3.88 10^3/uL (0.0-0.7); Absolute Lymphocyte Count 0.52 10^3/uL (1.2-3.4); Absolute Monocyte Count 0.52 10^3/uL (0.1-0.8); Absolute Neutrophil Count 19.93 10^3/uL (1.2-6.7); Anisocytosis 2+; Bands % 1; Basophilic Stippling Present; Diff Comment Manual Differential; Stomatocytes 2+
[2022-06-11 10:05] LABS: WBC 25.88 10^3/uL (4.4-10.8)
[2022-07-04 09:29] LABS: HCT 34.8 % (40.0-50.0); HGB 11.6 g/dL (13.5-17.5); MCH 30.2 pg (27.0-33.0); MCHC 33.3 % (32.0-36.0); MCV 91 fL (80-95); MPV 10.7 fL (8.0-11.0); Platelet Count 326 10^3/uL (130-400); RBC 3.84 10^6/uL (4.36-5.78); RDW 26.8 % (11.8-14.1); RDW-SD 86.3 fL; WBC 15.28 10^3/uL (4.4-10.8)
[2022-07-04 09:33] LABS: ALT 85 U/L (16-63); AST 60 U/L (15-37); Albumin 3.2 g/dL (3.4-5.0); Alkaline Phosphatase 647 U/L (46-116); Anion Gap 8.4 mmol/L (3-11); BUN 22 mg/dL (7-18); Bilirubin, Total 0.6 mg/dL (0.2-1.0); CO2 27.6 mmol/L (21.0-32.0); CREATININE 0.8 mg/dL (0.70-1.30); Chloride 103 mmol/L (98-107); Glucose 99 mg/dL (74-106); Potassium 3.9 mmol/L (3.5-5.1); Sodium 139 mmol/L (136-145); Total Protein 7.1 g/dL (6.4-8.2)
[2022-07-04 09:50] LABS: Absolute Eosinophil Count 3.51 10^3/uL (0.0-0.7); Absolute Lymphocyte Count 1.22 10^3/uL (1.2-3.4); Absolute Monocyte Count 0.92 10^3/uL (0.1-0.8); Absolute Neutrophil Count 9.47 10^3/uL (1.2-6.7); Bands % 2
[2022-07-04 09:51] LABS: Absolute Basophil Count 0.15 10^3/uL (0.0-0.2); Anisocytosis 2+; Diff Comment Manual Differential
== END 2022-07-09 23:59 | disposition home or self-care (01) ==
LOC: INF 02:10
PROVIDERS: Internal Medicine Hematology & Oncology; PCP Nurse Practitioner; Visit Provider Internal Medicine Hematology & Oncology
DX: D47.1 Chronic myeloproliferative disease (principal); Z94.84 Stem cells transplant status
CPT/HCPCS: 36415; 80053; 85025

== ENCOUNTER 2022-07-04 09:15 | Emergency (ER) | payer MEDICARE, SELFPAY ==
[2022-07-04] VITALS (26 sets, daily range): BP systolic 111–126; BP diastolic 65–79; PULSE 67–84; RESP 18; TEMP 36.5; O2SAT 95–99
--- NOTE | 2022-07-04 09:20 | ED.GENADUL_ITS ---
Discharge Plan Disposition Patient Disposition: Home Condition: Stable Discharge Details Clinical Impression: Male perineal pain, Loculated pleural effusion, Aneurysm of internal iliac artery Primary Care Provider: Gisele Perkins ED Provider: Pola Alvarez Home Meds and New Rx's Prescriptions: New oxycodone-acetaminophen [Percocet] 5-325 mg tablet 1 tab PO Q8H PRNQty: 8 0RF Continued sildenafil [Viagra] 50 mg tablet 50 mg PO DAILY Qty: 30 3RF Shingrix (PF) 50 mcg/0.5 mL suspension for reconstitution 50 mcg IM ONCE Qty: 1 1RF Rx Instructions: one time triamcinolone acetonide 0.5 % cream 1 applic Topical TID PRN (Reason: leg rash bilateral) Qty: 45 3RF Rx Instructions: apply to leg rash if needed aspirin [Aspirin Low-Strength] 81 MG tablet,chewable 81 mg PO DAILY Qty: 90 Hold Instructions: Changed by Provider Rx Instructions: patient not taking. 07/04/22 Centrum Silver 1 EACH tablet 1 ea PO DAILY Rx Instructions: patient not taking. 07/04/22 Varicella-Zoster Ge/As01b/Pf [Shingrix Vial Kit] 50 MCG INJ 50 mcg IM ONCE Qty: 1 1RF Rx Instructions: one time simvastatin 40 mg tablet 40 mg PO DAILY Qty: 90 3RF Rx Instructions: patient not taking. 07/04/22 acyclovir 800 mg tablet 800 mg PO BID fluconazole 200 mg tablet 400 mg PO DAILY folic acid 1 mg tablet 1 mg PO DAILY pantoprazole 40 mg tablet,delayed release (DR/EC) 40 mg PO BID Rx Instructions: patient not taking. 07/04/22 bumetanide 1 mg tablet 1 mg PO BID Qty: 180 1RF Hold Instructions: on hold by at hospitalization 10/24-11/14/21 Rx Instructions: patient not taking. 07/04/22 ondansetron HCl 8 mg tablet 8 mg PO Q8H Rx Instructions: note dated 09/13/21 [facility] [place] penicillin V potassium 500 mg tablet 500 mg PO BID Rx Instructions: per note dated 09/20/21 [facility] [place] cc Aranesp (in polysorbate) 500 mcg/mL syringe 500 mcg subcut Q2W Rx Instructions: patient not taking. 07/04/22 Mag Plus Protein 2 tab 2 tab PO TID Rx Instructions: 09/12/21 per [facility] [place] 2 tabs tid note dated 09/13/21 d/c on 10/04/21 cgc 09/27/21 [facility] [place] - 3 tabs bid and 4 tabs qd. jagdish savage See Rx Instructions .ROUTE .COMPLEX Rx Instructions: per note dated 09/20/21 no dosing noted [facility] [place] every 2 weeks. patient not taking. 07/04/22 eltrombopag 50 mg tablet 50 mg PO DAILY Rx Instructions: administer on an empty stomach, at least 1 hour before or 2 hours after food/meal(s). patient not taking. 07/04/22 x30 days ON HOLD 11/29/65 CC allopurinol 300 mg tablet 300 mg PO DAILY Qty: 90 3RF Rx Instructions: 11/2020 Hem/Onc prescribed amlodipine 5 mg tablet 5 mg PO DAILY Qty: 90 3RF Jakafi 20 mg tablet 10 mg PO BID Label Comments: 05/23/22 OV Hem/Onc 06/20/22 changed by Hem/Onc, Dr Jones hydroxyurea [Hydrea] 500 mg capsule 1 g PO BID Label Comments: 05/23/22 OV Hem/Onc 06/20/22 OV Hem/Onc acetaminophen [Mapap Extra Strength] 500 MG tablet 1,000 mg PO PRN PRN folic acid 1 mg tablet 1 mg 1XD Label Comments: TAKE ONE TABLET BY MOUTH EVERY DAY tacrolimus 1 mg capsule 1 cap DAILY Discharge Instructions Additional Instructions: Your work-up today reveals an aneurysm in your internal right iliac artery, a loculated pleural effusion, but no clear obvious source of where your discomfort is coming from today. I spoke with the vascular surgeon and the on-call transplant team at [facility] regarding your work-up and presentation today. Vascular surgery will be reaching out to you as an outpatient to discuss outpatient evaluation. The transplant team will reach out to your hematology oncology team to see if they want to see you sooner than already scheduled July 18 order to add on additional outpatient laboratory values. Your PCP, CHER Perkins is also aware of your visit. Her office will be reaching out to follow-up with you on Friday. Percocet as directed, this medication may cause drowsiness and/or constipation. You may want to take an msrc-joq-xvjkuaa stool softener while taking this medication. You may also take worx-xgt-mopphxc anti- inflammatory medication such as ibuprofen and you may take acetaminophen. Be sure not to take more than a total of 4 g acetaminophen daily as Percocet has a component of acetaminophen. Warm soaks and/or compresses every 2 hours for 20 minutes. Please watch for new or worsening symptoms and return to the ER for any concerns. Medical Decision Making 71-year-old gentleman with a past medical history of myelofibrosis, bone marrow transplant, AAA repair, hypertension, presenting to the ER for what he describes as a deep pelvic-perineal pain, he cannot put his finger on it but feels as though it is at the base of his penis, over the past 5 days or so, worse over the past couple of days. Denies any other symptoms whatsoever such as fever, chest pain, shortness of breath, abdominal pain, nausea, vomiting, dysuria, hematuria, penile pain, pain or swelling in his testicles, back pain, diarrhea or constipation, black tarry stools or bright red blood in his stools. Patient states that he is actually been doing quite well with his therapy, has been gaining weight and has had a strong appetite. Examination does not reveal any obvious etiology of his symptoms. Certainly concerning for prostatitis, UTI, renal stone, cellulitis, abscess, Reed's gangrene, aneurysm, etc. Plan to obtain routine screening laboratory values, give 2 IV morphine, and will obtain CT imaging of his abdomen pelvis with IV contrast. Laboratory values reveal a white blood cell count of 15.91 hemoglobin 11.9 hematocrit 35.3 platelet count 338. Electrolytes unremarkable, creatinine 0.8 with a GFR of 95.80. LFTs minimally elevated although appears better than his previous. Urinalysis reveals trace leuk esterase, negative for blood, 3-5 white cells, rare epithelials, negative crystals, rare bacteria, culture is indicated. COVID, flu, RSV negative. CT reveals what appeared to be an incidental left-sided loculated pleural effusion. Findings consistent with pelvic congestion syndrome. 2.8 cm diameter aneurysm in the right internal iliac artery which exhibits increasing mural thrombus when compared to the prior study. The images were pushed to [facility] and I requested a consultation with vascular surgery. I did discuss findings with patient, he is agreeable to awaiting consultation. I also discussed the case with Dr. Fuentes. We will add on coags and a lactate. At 1305 I was able to speak with vascular surgery from [facility], Dr. Mckinney. He was able to personally review the images. He does not believe that any immediate intervention is necessary, does not recommend transfer. He does not recommend any oral treatment. His office will reach out to the patient and set up outpatient follow-up. I have now placed a consultation with his transplant team. Lactate of 1.1 Coag resulted I was able to speak with the on-call transplant MD at 1333, Dr. Chapman. We reviewed his laboratory values, imaging, overall presentation today. She is relieved that his blood counts are along and does not believe that this is a direct result of his current medications or the transplant itself. She states that he is scheduled to be seen by his outpatient guest experience manager-oncologist on Jul ruary 9. She will personally reach out to them to make them aware of his ER visit today and see if they would like to add on additional reevaluation labs or see him sooner than already scheduled. She does not have any additional recommendations for today's visit I was then able to speak with his PCP, CHER Perkins. I will initiate short-term analgesia prescription. There is no clear indication to initiate antibiotic therapy. She plans to see the patient on Friday and will have her office reach out to them set up the appointment. Otherwise she would like him to call the office tomorrow or the on-call provider over the weekend. I discussed his overall work-up today here in the ER as well as my consultation with vascular surgery, transplant team, and his PCP. He is comfortable discharge. Prior to discharge she will be given IV morphine and Toradol for analgesia and I will provide a prescription of Percocet. Recommend he takes kgdx-zmj-hldyloq anti-inflammatories as well. Warm soaks and/or compresses every 2 hours for 20 minutes. Standard discharge and return precautions were provided. Patient understands, is agreeable to this plan, and has no additional questions or concerns upon discharge. This documentation was generated using [employer] system, please disregard any oddities of phrase or misspellings. Medical Records Medical records reviewed: Yes I reviewed the patient's medical records. Imaging Data Radiologic Study: Attestation: I personally reviewed and interpreted this imaging study as follows: Imaging: CT Scan Radiologist's impression: Exam(s) CT ABDOMEN PELVIS W EXAM: CT ABDOMEN PELVIS W CLINICAL HISTORY: Deep pelvis pain, hx of Myelofibrosis. TECHNIQUE: Imaging Protocol: Axial computed tomography images with coronal and sagittal reformatted images were created and reviewed CONTRAST MATERIAL: Intravenous: Omnipaque-350 100cc Oral: None COMPARISON: CT CT THORAX ABD/PEL CTA from 12/20/2020 FINDINGS: VISUALIZED LUNG BASES: Uppermost images of this study reveal loculated pleural effusion on the left side which was not previously present. This extends above the field of view of this study. There is an adjacent healed fracture of the left 8th rib which was evident on the prior study. No acute appearing rib fractures evident. No rib destruction. ABDOMEN: There is no ascites. LIVER: There are no focal hepatic lesions evident. No dilated intrahepatic ducts. GALLBLADDER/BILIARY: No obvious gallbladder pathology. CBD is not dilated. PANCREAS: No evidence of pancreatic mass nor dilatation of the pancreatic duct. SPLEEN: Spleen is now surgically absent. Portal vein is patent. ADRENALS: Right adrenal gland unremarkable. There is small nodule again noted in the left adrenal gland measuring approximately 1.2 x 1.2 cm. KIDNEYS:Multiple benign cysts in both kidneys are again noted. The largest again noted be exophytic off the lateral cortex of the left kidney and measures approximately 3 by 3 cm, unchanged. Some perinephric streaking on the left side is also unchanged. No solid renal masses. No calculi nor hydronephrosis.. ABDOMINAL AORTA: Again noted is evidence of surgery for prior aneurysm. The qagan tayagungin aorta sac appears unchanged. Iliac arteries again noted be calcified. There is fusiform dilatation of the distal left common iliac artery which exhibits maximum luminal diameter of 2.5 cm. Internal and external iliac arteries are also calcified. There is a significant aneurysm in the right internal iliac artery noted which has somewhat changed. Again exhibits maximum diameter 2.8 cm but exhibits more prominent mural thrombus at this time. The length of this aneurysm along the vessel is 4.5 cm, similar to previous. Incidentally noted are contrast filled dilated veins to the left of the abdominal aorta and extending down to the seminal vesicles and draining into a left renal vein which is noted to be retroaortic. Does not appear to be thro mbosis of these left-sided veins. LYMPH NODES:There is no retroperitoneal nor paraaortic adenopathy. ABDOMINAL WALL: No evidence of significant anterior abdominal wall nor inguinal hernia. GI: There is no evidence of bowel obstruction, free air, nor abscess. PELVIS: GI: No evidence of appendicitis.No evidence of sigmoid diverticulitis. LYMPH NODES: There is no intrapelvic nor inguinal adenopathy. REPRODUCTIVE: Prostate size upper normal. URINARY BLADDER: No calculi nor obvious masses evident OSSEOUS: No fractures and no significant osseous lesions. However, there are bilateral pars defects at L5 level and mild anterolisthesis L5 on S1, similar to previous. IMPRESSION: 1. Uppermost images now reveal prominent lateral left side loculated pleural effusion which not evident on the prior study December 2020. There is no overlying rib destruction. There is a healed fracture of the left 8th rib noted (which was also present in December 2020) 2. There has been interval splenectomy. 3. Multiple benign bilateral cysts. No solid renal masses. 4. Multiple contrast filled serpiginous dilated veins in left side of the pelvis consistent with element of pelvic congestion syndrome in this male patient. These drain into the left gonadal vein and left renal vein (which is noted to be retroaortic). This finding was previously present. 5. Previous aortic surgery again noted. 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 There is also a 2.8 cm diameter aneurysm in the right INTERNAL iliac artery which exhibits increasing mural thrombus when compared to the prior study. No obvious leak at this time. No free fluid. Other incidental findings as above. Lab Data Lab results reviewed: Yes I reviewed the patient's lab results. Labs: 07/04/22 11:25 Urine - Reflex from Ua Urine Culture - Pending Laboratory Tests Range/Units 07/04/22 07/04/22 07/04/22 10:03 10:03 10:18 WBC (4.4-10.8) 10^3/uL 15.91 H RBC (4.36-5.78) 10^6/uL 3.90 L Hgb (13.5-17.5) g/dL 11.9 L Hct (40.0-50.0) % 35.3 L MCV (80-95) fL 91 MCH (27.0-33.0) pg 30.5 MCHC (32.0-36.0) % 33.7 RDW (11.8-14.1) % 26.8 H Plt Count (130-400) 10^3/uL 338 MPV (8.0-11.0) fL 10.8 Immature Gran % 0.0 Neutrophils % 70.0 Lymphocytes % 3.0 Atypical Lymphs % 3 Monocytes % 2.0 Eosinophils % 21.0 Basophils % 1.0 Nucleated RBC % (0.0-0.3) % 0.0 Absolute Neutrophils (1.2-6.7) 10^3/uL 11.14 H Absolute Lymphocytes (1.2-3.4) 10^3/uL 0.95 L Absolute Monocytes (0.1-0.8) 10^3/uL 0.32 Absolute Eosinophils (0.0-0.7) 10^3/uL 3.34 H Absolute Basophils (0.0-0.2) 10^3/uL 0.16 RBC Morphology See Below Anisocytosis 2+ PT (9.3-11.0) sec INR (0.9-1.1) APTT (21.0-27.5) sec VBG Lactate (0.6-1.4) mmol/L Sodium (136-145) mmol/L 140 Potassium (3.5-5.1) mmol/L 4.1 Chloride (98-107) mmol/L 105 Carbon Dioxide (21.0-32.0) mmol/L 27.3 Anion Gap (3-11) mmol/L 7.7 BUN (7-18) mg/dL 20 H Creatinine (0.70-1.30) mg/dL 0.8 Est GFR (CKD-EPI 2020) (mL/min/1.73m2) 95.80 Glucose (74-106) mg/dL 98 Calcium (8.5-10.1) mg/dL 8.9 Total Bilirubin (0.2-1.0) mg/dL 0.5 AST (15-37) U/L 70 H ALT (16-63) U/L 89 H Alkaline Phosphatase (46-116) U/L 698 H Total Protein (6.4-8.2) g/dL 7.3 Albumin (3.4-5.0) g/dL 3.4 Lipase (73-393) U/L 31 Urine Color (Yellow) Urine Clarity (Clear) Urine pH (5-8) Ur Specific Milton (1.005-1.025) Urine Protein (Negative) mg/dL Urine Ketones (Negative) mg/dL Urine Blood (Negative) Urine Nitrite (Negative) Urine Bilirubin (Negative) Urine Urobilinogen (Up TO 0.2) EU/dL Ur Leukocyte Esterase (Negative) Urine RBC (0-2) HPF Urine WBC (0-5) HPF Ur Epithelial Cells (Negative) HPF Urine Crystals (Negative) HPF Urine Bacteria (Negative) HPF Urine Casts (Negative) LPF Urine Mucus (Negative) Ur Culture Indicated? Urine Glucose (Negative) mg/dL COVID-19 Source Nasopharynx SARS-CoV-2 (PCR) (Negative) Negative Influenza Type A (PCR) (Negative) Negative Influenza Type B (PCR) (Negative) Negative RSV (PCR) (Negative) Negative Range/Units 07/04/22 07/04/22 07/04/22 11:25 12:55 12:55 WBC (4.4-10.8) 10^3/uL RBC (4.36-5.78) 10^6/uL Hgb (13.5-17.5) g/dL Hct (40.0-50.0) % MCV (80-95) fL MCH (27.0-33.0) pg MCHC (32.0-36.0) % RDW (11.8-14.1) % Plt Count (130-400) 10^3/uL MPV (8.0-11.0) fL Immature Gran % Neutrophils % Lymphocytes % Atypical Lymphs % Monocytes % Eosinophils % Basophils % Nucleated RBC % (0.0-0.3) % Absolute Neutrophils (1.2-6.7) 10^3/uL Absolute Lymphocytes (1.2-3.4) 10^3/uL Absolute Monocytes (0.1-0.8) 10^3/uL Absolute Eosinophils (0.0-0.7) 10^3/uL Absolute Basophils (0.0-0.2) 10^3/uL RBC Morphology Anisocytosis PT (9.3-11.0) sec 10.1 INR (0.9-1.1) 1.0 APTT (21.0-27.5) sec 28.1 H VBG Lactate (0.6-1.4) mmol/L 1.1 Sodium (136-145) mmol/L Potassium (3.5-5.1) mmol/L Chloride (98-107) mmol/L Carbon Dioxide (21.0-32.0) mmol/L Anion Gap (3-11) mmol/L BUN (7-18) mg/dL Creatinine (0.70-1.30) mg/dL Est GFR (CKD-EPI 2020) (mL/min/1.73m2) Glucose (74-106) mg/dL Calcium (8.5-10.1) mg/dL Total Bilirubin (0.2-1.0) mg/dL AST (15-37) U/L ALT (16-63) U/L Alkaline Phosphatase (46-116) U/L Total Protein (6.4-8.2) g/dL Albumin (3.4-5.0) g/dL Lipase (73-393) U/L Urine Color (Yellow) Yellow Urine Clarity (Clear) Clear Urine pH (5-8) 7.0 Ur Specific Milton (1.005-1.025) 1.015 Urine Protein (Negative) mg/dL Trace H Urine Ketones (Negative) mg/dL Negative Urine Blood (Negative) Negative Urine Nitrite (Negative) Negative Urine Bilirubin (Negative) Negative Urine Urobilinogen (Up TO 0.2) EU/dL 0.2 Ur Leukocyte Esterase (Negative) Trace H Urine RBC (0-2) HPF Negative Urine WBC (0-5) HPF 3-5 Ur Epithelial Cells (Negative) HPF Rare Urine Crystals (Negative) HPF Negative Urine Bacteria (Negative) HPF Rare Urine Casts (Negative) LPF Negative Urine Mucus (Negative) Negative Ur Culture Indicated? Yes Urine Glucose (Negative) mg/dL Negative COVID-19 Source SARS-CoV-2 (PCR) (Negative) Influenza Type A (PCR) (Negative) Influenza Type B (PCR) (Negative) RSV (PCR) (Negative) HPI General Mode of arrival: wheelchair . Date/Time Provider Initiated Documentation: 07/04/22 09:16 . Limitations to Documentation: no limitations . Information obtained by: patient and family . HPI Narrative: This is a pleasant 71-year-old gentleman with a past medical history of hypertension, GI bleeding, hyperlipidemia, myelofibrosis status post bone marrow transplant, splenectomy, currently taking to oral chemotherapy drugs, hydroxyurea, and Jakafi, presenting to the ER today for what he describes as pain deep in his pelvis-perineal region. Patient states that this began mildly approximately 5 days ago but has worsened over the past 24-48 hours. He has clare en lwim-sin-eflulco Tylenol with no significant relief. He states that in the past he has had groin abscesses but he does not appreciate any obvious swelling or redness. He states up to the past 5 days in general he has felt very well. Denies fever, chest pain, shortness of breath abdominal pain, nausea, vomiting, rectal pain, black tarry stools or bright red blood in the stools, dysuria, hematuria, urinary frequency. Patient denies any pain in his penis, scrotum, testicles. He states that it feels as though there is discomfort at the base of his penis in a deep fashion. He describes it as aching. Related Data Home Medications Medication Instructions Recorded Confirmed aspirin 81 mg chewable tablet 81 mg PO DAILY #90 tab-caps 09/08/12 07/04/22 (Aspirin Low-Strength) qlkzswzb-hwx-fhwuq acid 0.4 1 ea PO DAILY 08/15/14 07/04/22 mg-lycopene 300 mcg-lutein 250 mcg tablet (Centrum Silver) acetaminophen 500 mg tablet (Mapap 1,000 mg PO PRN PRN 06/25/16 07/04/22 Extra Strength) sildenafil 50 mg tablet (Viagra) 50 mg PO DAILY #30 tab-caps 06/04/18 07/04/22 varicella-zoster glycoE vacc-AS01B 50 mcg IM ONCE #1 ea 05/25/19 07/04/22 adj(PF) 50 mcg/0.5 mL IM susp, kit (Shingrix (PF)) triamcinolone acetonide 0.5 % 1 applic topical TID PRN leg rash 12/13/20 07/04/22 topical cream bilateral #45 grams simvastatin 40 mg tablet 40 mg PO DAILY #90 tab-caps 06/13/21 07/04/22 acyclovir 800 mg tablet 800 mg PO BID 08/21/21 07/04/22 bumetanide 1 mg tablet 1 mg PO BID #180 tabs 08/21/21 07/04/22 fluconazole 200 mg tablet 400 mg PO DAILY 08/21/21 07/04/22 folic acid 1 mg tablet 1 mg PO DAILY 08/21/21 07/04/22 pantoprazole 40 mg tablet,delayed 40 mg PO BID 08/21/21 07/04/22 release ondansetron HCl 8 mg tablet 8 mg PO Q8H 09/17/21 07/04/22 penicillin V potassium 500 mg 500 mg PO BID 09/21/21 07/04/22 tablet darbepoetin gerardo in polysorbat 500 500 mcg subcut Q2W 09/27/21 07/04/22 mcg/mL in polysorbate injection syringe (Aranesp) Mag Plus Protein 2 tab PO TID 10/09/21 07/04/22 aranesp See Rx Instructions .Route .COMPLEX 10/09/21 07/04/22 eltrombopag 50 mg tablet 50 mg PO DAILY 12/03/21 07/04/22 allopurinol 300 mg tablet 300 mg PO DAILY #90 tabs 02/12/22 07/04/22 amlodipine 5 mg tablet 5 mg PO DAILY #90 tabs 02/12/22 07/04/22 hydroxyurea 500 mg capsule (Hydrea) 1 g PO BID 06/26/22 07/04/22 ruxolitinib 20 mg tablet (Jakafi) 10 mg PO BID 06/26/22 07/04/22 folic acid 1 mg tablet 1 mg 1XD 07/04/22 07/04/22 oxycodone-acetaminophen 5 mg-325 1 tab PO Q8H PRN #8 tabs 07/04/22 mg tablet (Percocet) tacrolimus 1 mg capsule, 1 cap DAILY 07/04/22 07/04/22 immediate-release Previous Rx's Medication Instructions Recorded sildenafil 50 mg tablet (Viagra) 50 mg PO DAILY #30 tab-caps 06/04/18 varicella-zoster glycoE vacc-AS01B 50 mcg IM ONCE #1 ea 05/25/19 adj(PF) 50 mcg/0.5 mL IM susp, kit (Shingrix (PF)) triamcinolone acetonide 0.5 % 1 applic topical TID PRN leg rash 12/13/20 topical cream bilateral #45 grams simvastatin 40 mg tablet 40 mg PO DAILY #90 tab-caps 06/13/21 bumetanide 1 mg tablet 1 mg PO BID #180 tabs 08/21/21 allopurinol 300 mg tablet 300 mg PO DAILY #90 tabs 09/06/22 amlodipine 5 mg tablet 5 mg PO DAILY #90 tabs 02/12/22 oxycodone-acetaminophen 5 mg-325 1 tab PO Q8H PRN #8 tabs 07/04/22 mg tablet (Percocet) Allergies Allergy/AdvReac Type Severity Reaction Status Date / Time lisinopril Allergy Unknown swelling Verified 03/23/21 10:47 adhesive tape AdvReac Intermediate Unverified 08/27/21 08:28 hydrochlorothiazide AdvReac generalized Verified 03/23/21 10:47 edema General TIFF: 2 Review of Systems Constitutional Constitutional: Denies fatigue, Denies fever(s) and Denies weakness ENT Ears, Nose, Mouth, and Throat: Denies neck pain Cardiovascular Cardiovascular: Denies chest pain and Denies dyspnea Respiratory Respiratory: Denies cough and Denies dyspnea Gastrointestinal Gastrointestinal: Denies abdominal pain, Denies melena, Denies hematochezia, Denies diarrhea, Denies nausea and Denies vomiting Genitourinary Genitourinary: Denies hematuria, Denies dysuria, Denies penile discharge, Denies scrotal swelling, Denies urinary incontinence and Denies urinary urgency Musculoskeletal Musculoskeletal: Denies back pain and Denies neck pain Integumentary/Breasts Skin/Breast: Denies erythema Neurologic Neurologic: Denies weakness Endocrine Endocrine: Denies fatigue Hematologic/Lymphatic Hematologic/Lymphatic: Denies easy bleeding and Denies easy bruising PFSH All Active Problems (Updated 07/04/22 @ 14:34 by JOSE LUIS Goldsmith) Male perineal pain (Acute) Loculated pleural effusion (Acute) Aneurysm of internal iliac artery (Acute) Tumor lysis syndrome (Acute ~02/2022) Pancytopenia (Acute ~11/2021) 11/22/21 Hem/Onc History of GI bleed (Acute) GI bleed (Chronic) 10/24-11/14/21 hospitalization - set up for weekly transfusions at [facility] Anemia (Chronic) 10/24-11/14/21 HEM/Onc Bone marrow replaced by transplant (Acute 07/12/21) 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 07/12/21 at [facility] [place] 05/23/22 F/u Dr Dial, Hem/Onc Splenomegaly (Acute ~07/12/21) 06/05/21 [facility] [place] Rad Onc note Myelofibrosis (Acute ~07/12/21) with splenomegaly 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 Dr Stoll [facility] [place] Derm, F/U 1 year Tubular adenoma of colon (Acute 06/25/16) Obstructive sleep apnea syndrome (Acute 09/17/11) Idiopathic peripheral neuropathy (Acute 02/28/15) 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 (Acute 08/30/15) Other and unspecified hyperlipidemia (Acute 08/21/12) PCEq 17.6%; LDL baseline 162 Essential hypertension (Acute 03/12/13) goal 150/90 Erectile dysfunction (Acute 09/17/11) Other B-complex deficiencies (Acute 09/17/11) Ataxia (Acute 07/01/13) 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 12/21/20 upper GI endoscopy @ [facility] [place], repeat 8- 12 weeks 10/12/21-Upper endoscopy at [facility] [place] due to melena Abnormal blood chemistry (Acute) Foot ulceration (Acute) Grade 3 ulceration second digit left foot w/o evidence of infection Amputation toe (Acute 09/06/20) 09/06/20 2nd toe right foot, osteomyelitis Low HDL (under 40) (Acute) Acquired hallux limitus of both feet (Acute) Primary osteoarthritis of both feet (Acute) Hallux valgus with bunions of right foot (Acute) Hallux valgus with bunions of left foot (Acute) Lung cancer screening declined by patient (Acute) Bunion, right (Acute) 01/05/20 bilateral bunions (R worse than L), f/u 4 weeks. Pre-diabetes (Acute) Abdominal aortic aneurysm (AAA) greater than 5.5 cm in diameter in male (Acute) Benign neoplasm of colon (Chronic 09/17/11) tubular adenoma; Dr Tellez and again 06/25/16 Impotence of organic origin (Acute 09/17/11) Impaired fasting glucose (Acute 02/21/12) Tobacco use disorder (Acute 04/25/16) Medical History Hyperlipemia Hypertension Surgical History Colonoscopy - IV Sedation (06/25/16) H/O abdominal aortic aneurysm repair (01/01/19) [facility] [place]ascular H/O allogeneic bone marrow transplant knee surgery (08/31/14) pneumothorax Status post splenectomy (~10/2021) Hospitalization 10/24-11/14/21 Social History Smoking/Tobacco Use Status: Former Tobacco Use Quit Date: 01/01/19 Pack-years: 40 Tobacco: How many years used: 40 Smoking risk assessment performed?: Yes Alcohol Intake: current Alcohol Intake frequency: holidays/special occasions only Alcohol type: beer Details: couple of Budwe[employer] cans a day (2-4, 12 oz). Drug use: Current Sobriety Substance use type: does not use and marijuana Pets and animals: Yes Pets and animals: dog(s) Duration: 30-45 minutes/day Frequency: 5-6 times per week Do you feel safe at home: Yes Do you feel safe in your relationship?: Yes Exam Const General: cooperative, healthy appearing, comfortable and no acute distress Orientation: alert, awake and oriented x3 HENMT Head: normal to inspection, normocephalic and atraumatic Face and sinus: normal facial exam Mouth: moist mucous membranes Eyes Conjunctivae: conjunctivae normal Neck Neck: normal visual inspection, full ROM, no meningeal signs, trachea midline and supple Resp Effort & Inspection: normal respiratory effort and able to speak in complete sentences Auscultation: clear to auscultation bilaterally Cardio Rate: regular rate Rhythm: regular rhythm GI Inspection: scar and visible herniation (Nontender) Palpation: soft, not firm, no guarding, no pulsatile masses and nontender Auscultation: normal bowel sounds Rectal Exam: visual inspection normal, normal sphincter tone, prostate normal and heme negative stool Male General Exam: Yes normal external exam Penis: normal penis Meatus: meatus normal Scrotum: scrotum normal Testes: normal Male genitals images: 1. Diffuse mild discomfort. No erythema, warmth, obvious swelling, fluctuance. No obvious pointing abscess. Question minimal induration Back/Spine/Pelvis Back: no CVA tenderness and No back tenderness Skin General skin exam: no rashes or lesions noted Neuro General: patient alert, patient awake, moves all extremities and no focal motor deficits Cognition: normal cognition Speech: speech normal Gait: normal gait Sensory Exam: no sensory deficits noted Extrem General: normal to inspection, full ROM, capillary refill normal, no pedal edema and no calf tenderness Psych Appearance: grossly normal Mental Status: mental status grossly normal
[2022-07-04 10:15] LABS: HCT 35.3 % (40.0-50.0); HGB 11.9 g/dL (13.5-17.5); MCH 30.5 pg (27.0-33.0); MCHC 33.7 % (32.0-36.0); MCV 91 fL (80-95); MPV 10.8 fL (8.0-11.0); Platelet Count 338 10^3/uL (130-400); RDW 26.8 % (11.8-14.1); RDW-SD 87.3 fL; WBC 15.91 10^3/uL (4.4-10.8)
[2022-07-04 10:28] LABS: Absolute Basophil Count 0.16 10^3/uL (0.0-0.2); Absolute Eosinophil Count 3.34 10^3/uL (0.0-0.7); Absolute Lymphocyte Count 0.95 10^3/uL (1.2-3.4); Absolute Monocyte Count 0.32 10^3/uL (0.1-0.8); Absolute Neutrophil Count 11.14 10^3/uL (1.2-6.7); Atypical Lymphocytes % 3; Diff Comment Manual Differential
[2022-07-04 10:29] LABS: Anisocytosis 2+
[2022-07-04 10:30] LABS: ALT 89 U/L (16-63); AST 70 U/L (15-37); Albumin 3.4 g/dL (3.4-5.0); Alkaline Phosphatase 698 U/L (46-116); Anion Gap 7.7 mmol/L (3-11); BUN 20 mg/dL (7-18); Bilirubin, Total 0.5 mg/dL (0.2-1.0); CO2 27.3 mmol/L (21.0-32.0); CREATININE 0.8 mg/dL (0.70-1.30); Calcium 8.9 mg/dL (8.5-10.1); Chloride 105 mmol/L (98-107); Glucose 98 mg/dL (74-106); Lipase 31 U/L (73-393); Potassium 4.1 mmol/L (3.5-5.1); Sodium 140 mmol/L (136-145); Total Protein 7.3 g/dL (6.4-8.2)
[2022-07-04] MEDS: MORPHine 10 MG/ML VIAL 2 MG IVP (11:00)
[2022-07-04 11:02] LABS: COVID-19 PCR Negative (Negative); Influenza A PCR Negative (Negative); Influenza B PCR Negative (Negative); RSV PCR Negative (Negative)
[2022-07-04 11:13] LABS: Source Nasopharynx
--- NOTE | 2022-07-04 11:30 | DI.CT_ITS ---
Exam(s) CT ABDOMEN PELVIS W EXAM: CT ABDOMEN PELVIS W CLINICAL HISTORY: Deep pelvis pain, hx of Myelofibrosis. TECHNIQUE: Imaging Protocol: Axial computed tomography images with coronal and sagittal reformatted images were created and reviewed CONTRAST MATERIAL: Intravenous: Omnipaque-350 100cc Oral: None COMPARISON: CT CT THORAX ABD/PEL CTA from 12/20/2020 FINDINGS: VISUALIZED LUNG BASES: Uppermost images of this study reveal loculated pleural effusion on the left s ladarius which was not previously present. This extends above the field of view of this study. There is an adjacent healed fracture of the left 8th rib which was evident on the prior study. No acute appea ring rib fractures evident. No rib destruction. ABDOMEN: There is no ascites. LIVER: There are no focal hepatic lesions evident. No dilated intrahepatic ducts. GALLBLADDER/BILIARY: No obvious gallbladder pathology. CBD is not dilated. PANCREAS: No evidence of pancreatic mass nor dilatation of the pancreatic duct. SPLEEN: Spleen is now surgically absent. Portal vein is patent. ADRENALS: Right adrenal gland unremarkable. There is small nodule again noted in the left adrenal gl and measuring approximately 1.2 x 1.2 cm. KIDNEYS:Multiple benign cysts in both kidneys are again noted. The largest again noted be exophytic off the lateral cortex of the left kidney and measures approximately 3 by 3 cm, unchanged. Some phill nephric streaking on the left side is also unchanged. No solid renal masses. No calculi nor hydrone phrosis.. ABDOMINAL AORTA: Again noted is evidence of surgery for prior aneurysm. The [place] aorta sac appears unchanged. Iliac arteries again noted be calcified. There is fusiform dilatation of the distal lef t common iliac artery which exhibits maximum luminal diameter of 2.5 cm. Internal and external iliac arteries are also calcified. 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 Again exhibits maximum diameter 2.8 cm but exhibits more prominent mu ral thrombus at this time. The length of this aneurysm along the vessel is 4.5 cm, similar to previo us. Incidentally noted are contrast filled dilated veins to the left of the abdominal aorta and extending down to the seminal vesicles and draining into a left renal vein which is noted to be retroaortic. Does not appear to be thrombosis of these left-sided veins. LYMPH NODES:There is no retroperitoneal nor paraaortic adenopathy. ABDOMINAL WALL: No evidence of significant anterior abdominal wall nor inguinal hernia. GI: There is no evidence of bowel obstruction, free air, nor abscess. PELVIS: GI: No evidence of appendicitis.No evidence of sigmoid diverticulitis. LYMPH NODES: There is no intrapelvic nor inguinal adenopathy. REPRODUCTIVE: Prostate size upper normal. URINARY BLADDER: No calculi nor obvious masses evident OSSEOUS: No fractures and no significant osseous lesions. However, there are bilateral pars defects at L5 level and mild anterolisthesis L5 on S1, similar to p revious. IMPRESSION: 1. Uppermost images now reveal prominent lateral left side loculated pleural effusion which not evide nt on the prior study December 2020. There is no overlying rib destruction. There is a healed fracture of the left 8th rib noted (which was also present in December 2020) 2. There has been interval splenectomy. 3. Multiple benign bilateral cysts. No solid renal masses. 4. 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 These drain into the left gonadal vein and l eft renal vein (which is noted to be retroaortic). This finding was previously present. 5. Previous aortic surgery again noted. 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 There is also a 2.8 cm diameter aneurys m in the right INTERNAL iliac artery which exhibits increasing mural thrombus when compared to the pr ior study. No obvious leak at this time. No free fluid. Other incidental findings as above. Discussed by phone with ER provider RADIATION DOSE DELIVERED: 1,441.1mGy.cm Total DLP DATA REPOSITORY: All CT scans at this facility are submitted to the National Radiology Data Registry (NRDR) Dose Index Registry (DIR) with the [employer] (A[employer]). RADIATION OPTIMIZATION: All CT scans at this facility use at least one of these dose optimization te chniques: automated exposure control; mA and/or kV adjustment per patient size (includes targeted exa ms where dose is matched to clinical indication); or iterative reconstruction.
[2022-07-04 11:35] LABS: Bilirubin Negative (Negative); Blood Negative (Negative); Clarity Clear (Clear); Glucose Negative (Negative); Ketones Negative (Negative); Leukocyte Esterase Trace (Negative); Nitrite Negative (Negative); Specific Gravity 1.015 (1.005-1.025); Urobilinogen 0.2 EU/dL (Up TO 0.2)
[2022-07-04] MEDS: Normal Saline - Diluent 50 ML VIAL IV (11:38)
[2022-07-04] MEDS: Omnipaque 350 MG/ML 500 ML BTL-Imaging package 100 ML IJ (11:39)
[2022-07-04 11:42] LABS: Bacteria Rare HPF (Negative); C & S Indicated? Yes; Casts Negative LPF (Negative); Crystals Negative HPF (Negative); Epithelial Cells Rare HPF (Negative); Mucus Negative (Negative); RBC Negative HPF (0-2)
[2022-07-04 13:06] LABS: Lactate 1.1 mmol/L (0.6-1.4)
[2022-07-04 13:21] LABS: PTT Activated 28.1 sec (21.0-27.5); Prothrombin Time 10.1 sec (9.3-11.0)
[2022-07-04] MEDS: Ketorolac 30 MG/ML VIAL IVP (14:11)
[2022-07-04] MEDS: MORPHine 4 MG/ML SYR IVP (14:13)
== END 2022-07-04 15:00 | disposition home or self-care (01) ==
PROVIDERS: Emergency Provider Physician Assistant; PCP Nurse Practitioner
DX: I72.3 Aneurysm of iliac artery (principal); J90 Pleural effusion, not elsewhere classified; R10.2 Pelvic and perineal pain; I10 Essential (primary) hypertension; Z20.822 Contact with and (suspected) exposure to COVID-19
CPT/HCPCS: 80053; 83690; 87637; 96374; 96375; 96376; 99285; 74177; 81003; 81015; 83605; 85025; 85610; 85730; 87086; 99284; J1885; J2270

== ENCOUNTER → 2022-07-08 14:30 | Outpatient (BNVA) | payer MEDICARE, SELFPAY | PROVIDERS: PCP Nurse Practitioner; Referring Provider Nurse Practitioner; Visit Provider Nurse Practitioner Gerontology | DX: R10.2 Pelvic and perineal pain (principal); R33.8 Other retention of urine | CPT/HCPCS: 36415; 51798; 81003; 99215 ==

== ENCOUNTER 2022-07-08 16:42 | Outpatient (REF) | payer MEDICARE, SELFPAY ==
[2022-07-09 17:45] LABS: PSA, Screening 1.7 ng/mL (<=4.5)
== END 2022-07-08 16:43 | disposition home or self-care (01) ==
LOC: LBN 16:42
PROVIDERS: PCP Nurse Practitioner; Visit Provider Nurse Practitioner Gerontology
DX: N40.1 Benign prostatic hyperplasia with lower urinary tract symptoms (principal); R33.8 Other retention of urine; Z12.5 Encounter for screening for malignant neoplasm of prostate
CPT/HCPCS: 84153

== ENCOUNTER 2022-07-09 15:08 | Outpatient (REF) | payer MEDICARE, SELFPAY ==
[2022-07-09 12:02] LABS: Bilirubin Negative (Negative); Blood Negative (Negative); Clarity Clear (Clear); Glucose Negative (Negative); Ketones Negative (Negative); Leukocyte Esterase Negative (Negative); Nitrite Negative (Negative); Specific Gravity 1.015 (1.005-1.025); Urobilinogen 0.2 EU/dL (Up TO 0.2)
[2022-07-09 12:38] LABS: Bacteria Negative HPF (Negative); C & S Indicated? C&S Done As Ordered; Casts 0-2 Hyaline LPF (Negative); Crystals Negative HPF (Negative); Epithelial Cells Rare HPF (Negative); Mucus Negative (Negative); RBC Negative HPF (0-2); WBC Negative HPF (0-5)
== END 2022-07-09 15:09 | disposition home or self-care (01) ==
LOC: LBN 15:08
PROVIDERS: PCP Nurse Practitioner; Visit Provider Nurse Practitioner Gerontology
DX: R10.2 Pelvic and perineal pain (principal); R39.89 Other symptoms and signs involving the genitourinary system; R82.998 Other abnormal findings in urine
CPT/HCPCS: 81003; 81015; 87086